=== PATIENT | female | born 1990 | race Caucasian/White ===

== ENCOUNTER 2021-04-11 13:34 | Outpatient (REF) | payer MEDICAID, SELFPAY ==
--- NOTE | ~2021-04-11 | XR_ITS ---
EXAMINATION: XR CHEST CLINICAL INFORMATION: Shortness of breath COMPARISON: None TECHNIQUE: 2 views of the chest were obtained. FINDINGS: Median sternotomy and cardiac valve replacement. Normal heart size and pulmonary vascularity. No focal consolidation. No pleural effusion or pneumothorax. No acute or suspicious osseous abnormalities. XR/XR chest 2V IMPRESSION: No acute findings.
== END 2021-04-11 13:35 | disposition home or self-care (01) ==
LOC: HO.XRAY 13:34
PROVIDERS: PCP Internal Medicine; Visit Provider Internal Medicine
DX: R06.02 Shortness of breath (principal)
CPT/HCPCS: 71046

== ENCOUNTER → 2021-05-30 14:46 | Outpatient (REF) | payer MEDICAID, SELFPAY ==
--- NOTE | 2021-05-30 14:49 | CA_ITS ---
Transthoracic Echocardiogram Patient (Last, First, Middle): Macy Durant, Gender: Female Date of : 1990 Age: 31 Procedure Date: 05/30/2021 Procedure Type: Transthoracic Echocardiogram Location: OP Height: 157.48 cm Weight: 46.27 kg BSA: 1.44 m2 Heart Rate: bpm BP: 95 / 45 mmHg Waiter/Waitress Dining Car: SHADI Referring MD: Dolores Serrano MD Symptoms: R07.89 OTHER CHEST PAIN, Z09.890 Study Quality: Fair ECG Rhythm: Sinus Conclusions: - The left ventricular systolic function is normal. The calculated ejection fraction is 65% by biplane method. - There is moderate mitral annular calcification. There is mild mitral valve regurgitation. Cannot exclude mild to moderate mitral stenosis. - There is mild tricuspid valve regurgitation. Findings Left Ventricle Normal left ventricular cavity size. There is normal left ventricular wall thickness. The left ventricular systolic function is normal. The calculated ejection fraction is 65% by biplane method. There is no evidence of regional wall motion abnormalities. Diastolic function is indeterminate on the basis of available data. (due to MAC). Right Ventricle Normal right ventricular cavity size and systolic function. Atria Both atria are normal in size. Aortic Valve There is a normal trileaflet aortic valve. There is no aortic valve stenosis. There is trace (trivial) aortic valve regurgitation. Trace to mild aortic regurgitation. Mitral Valve There is moderate mitral annular calcification. There is mild mitral valve regurgitation. Mean gradient across the mitral valve 6mmHg at 74/min; cannot exclude mild to moderate mitral stenosis. Pulmonic Valve The pulmonic valve was not well visualized. Tricuspid Valve Normal tricuspid valve structure. There is mild tricuspid valve regurgitation. The pulmonary artery systolic pressure is normal. Great Vessels The aortic annulus, sinuses of valsalva, and asc aorta are normal in size. Venous The inferior vena cava is normal in size and collapses greater than 50% with inspiration. Pericardium/Pleural There is no evidence of pericardial effusion. Prior Study Comparison No prior study available for comparison. Measurements 2D Linear Measurements IVSd: 0.71 0.6-0.9/0.6-1.0 cm LVIDd: 5.03 3.9-5.3/4.2-5.9 cm LVIDd Index: 3.49 2.4-3.2/2.2-3.1 cm/m2 LVIDs: 3.12 2.0-3.6 cm LVPWd: 0.69 0.7-1.1 cm Ao Root: 2.80 2.1-3.5 cm LA Diam: 3.10 2.7-3.8/3.0-4.0 cm LAIDs Index: 2.15 1.5-2.3 cm/m2 LV Mass: 143.23 67-162/88-224 g LV Mass Index: 99.46 43-95/49-115 g/m2 LVOT Diam: 2.00 3.0+(-)1.3 cm 2D Systolic Function EF 4C: 65.20 >55% EF 2C: 64.90 >55% EF BiP: 65.30 >55% Mitral Valve MV VTI: 0.49 MV Pk Lele: 1.68 MV Mn Lele: 1.12 MV Pk Grad: 11.00 MV Mn Grad: 6.00 MV Pk E: 1.75 MV PK A: 1.23 MV Decel Time: 387.00 E/A: 1.40 E'Lateral: 10.10 E'Medial: 7.29 E/E' Med: 24.00 E/E' Lat: 17.30 PHT: 101.00 MVA PHT: 2.18 MVA Continuity: 1.56 Decel Butler: 5.08 Aortic Valve AoV Pk Lele: 1.28 AoV Mn Lele: 0.95 AoV VTI: 0.30 AoV Pk Grad: 7.00 Aov Mn Grad: 4.00 WOLF Cont.VTI: 2.54 LVOT LVOT Pk Lele: 1.08 LVOT Mn Lele: 0.78 LVOT VTI: 0.25 LVOT Pk Grad: 5.00 LVOT Mn Grad: 3.00 LVOT Diam: 2.00 LVOT Area: 3.14 Diastolic Function MV Pk E: 1.75 MV Pk A: 1.23 E/A: 1.40 E'Medial: 7.29 E/E' Med: 24.00 E' Laterial: 10.10 E/E' Lat: 17.30 Right Ventricle TAPSE (mm): 18.20 TVS' Lele: 11.40 Tricuspid Valve TR Pk Lele: 2.29 TR Pk Grad: 21.00 RA Press: 3.00 RVSP: 24.00 Great Vessels Aorta Ao Root-2D: 2.80 2.0-3.7 cm Ao Asc: 2.30 2.1-3.4 cm Ao Arch: 2.40 Updated in Other Vendor System with Status of Final Ced Camacho MD electronically signed on 05/31/2021 12:08:47 PM with status of Final
== END ==
LOC: HO.CARD 14:46
PROVIDERS: PCP Internal Medicine; Visit Provider Internal Medicine
DX: R07.89 Other chest pain (principal)
CPT/HCPCS: 93306

== ENCOUNTER 2021-10-18 14:17 | Outpatient (REF) | payer MEDICAID, SELFPAY ==
--- NOTE | ~2021-10-18 | CT_ITS ---
EXAMINATION: CT ABDOMEN AND PELVIS WITH CONTRAST CLINICAL INFORMATION: Right lower quadrant pain for 2 weeks getting worse COMPARISON: OB ultrasound 01/20/2020 TECHNIQUE: Multidetector volumetric images were obtained from the superior aspect of the liver through the pubic symphysis following administration of 77 mL of Omnipaque 300 intravenous contrast. Sagittal and coronal reformatted images were obtained on the technologist's workstation. Oral contrast: No This CT examination was performed using dose optimization techniques as appropriate, variously including the following: *Automated exposure control *Adjustment of mA and/or kV according to patient size (this includes techniques or standardized protocols for targeted exams where dose is matched to indication/reason for exam; i.e. extremities or head) *Use of iterative reconstruction technique DLP: 355 mGy-cm FINDINGS: LUNG BASES: Patient is status post median sternotomy and a mitral valve prosthesis is present. No lung masses, infiltrates or pleural effusions are seen. LIVER, GALLBLADDER, AND BILIARY TREE: The liver is normal in size, shape, and attenuation. No focal hepatic lesion or biliary ductal dilatation is present. The gallbladder is unremarkable with no evidence of radiopaque gallstones, gallbladder wall thickening, or obvious pericholecystic inflammatory changes. PANCREAS: Unremarkable. SPLEEN: Unremarkable. ADRENAL GLANDS: Unremarkable. KIDNEYS AND URETERS: The kidneys are normal in size, shape, and attenuation. No hydronephrosis, hydroureter, or calculi seen. No perinephric stranding. BLADDER: Unremarkable. GASTROINTESTINAL TRACT: The small and large bowel are unremarkable. The appendix is unremarkable. ABDOMINAL WALL: No abdominal wall hernia is seen. There is some mild diastases of the rectus muscles. In the buttocks bilaterally, there are innumerable rounded soft tissue densities largest measuring about 1.5 cm. I assume these are most likely from subcutaneous injections. Please correlate clinically. LYMPH NODES: No retroperitoneal lymphadenopathy. VASCULAR: The aorta and visualized iliofemoral vessels appear normal. The IVC and iliac veins are unremarkable. Of note, there is gross reflux present in both ovarian veins with bilateral large pelvic varices. If this patient has chronic pelvic pain, this may be playing a cause. This is usually the case if the pain is worse with prolonged upright position the supine position. PELVIC VISCERA: An anteverted uterus is present. An abnormal adnexal masses not seen. No free intraperitoneal fluid. Pelvic varices as described above. OSSEOUS STRUCTURES: Unremarkable. CT/CT abdomen pelvis w IV con IMPRESSION: The only discernible cause for the patient's chronic pelvic pain would be pelvic varices. The patient has pelvic venous incompetence with reflux in both ovarian veins even in the supine position with associated large pelvic varices. If the patient's pain is something that worsens in the prolonged upright position and is relieved with the supine position, she would benefit from consultation with an interventional radiologist. Other incidental findings as described above. Fleischner guidelines were followed.
[2021-10-18] MEDS: iohexoL 350 MG/ML 100 ML INFUS..BTL IV (17:27)
[2021-10-18] MEDS: Barium Sulfate Oral (Vanilla) 450 ML ORAL.SUSP 900 ML PO (17:28)
== END 2021-10-18 14:18 | disposition home or self-care (01) ==
LOC: HO.CT 14:17
PROVIDERS: PCP Internal Medicine; Visit Provider Internal Medicine
DX: R10.31 Right lower quadrant pain (principal)
CPT/HCPCS: 74177; Q9967

== ENCOUNTER 2022-04-15 12:44 | Emergency (ER) | payer MEDICAID, SELFPAY ==
--- NOTE | ~2022-04-15 | US_ITS ---
EXAMINATION: US OBSTETRICAL ULTRASOUND CLINICAL INFORMATION: Pain and bleeding with early COMPARISON: None. LMP: 03/11/2022. Gestational age by maternal dates is 5 weeks 0 days. Estimated date of delivery by maternal dates is 12/16/2022. TECHNIQUE: Both transabdominal and endovaginal scanning was performed FINDINGS: A definite gestational sac is not seen. There is one tiny cystic area adjacent to the endometrium that measures 2.1 mm in size. No pole or heartbeat is seen. No yolk sac is identified. MATERNAL ADNEXA: The right maternal ovary measures 2.4 x 1.4 x 1.4 cm. The left maternal ovary measures 2.5 x 1.7 x 2.0 cm. There is no significant maternal adnexal mass. No maternal pelvic ascites. US/US OB pelvic and transvaginal IMPRESSION: If the tiny cystic area is indeed a gestational sac based upon the 2.1 mm size, this would correspond with a gestational 4 weeks 5 days which would be too early to see a pole. Recommend correlation with hCG and follow-up ultrasound as needed.
--- NOTE | 2022-04-15 14:05 | PC.NURSE ---
pt given crackers and juice x 2
[2022-04-15 14:46] VITALS: BP 119/67; PULSE 74; RESP 16; TEMP 36.3; O2SAT 99; BMI 18.3
--- NOTE | 2022-04-15 14:47 | ED.GENADULT ---
HPI - General Adult General Chief complaint: Abdominal Pain <MARIBEL Hayward - Last Filed: 04/15/22 14:55> Stated complaint: abdominal pain <MARIBEL Hayward - Last Filed: 04/15/22 14:55> Time Seen by Provider: 04/15/22 18:28 <MARIBEL Hayward - Last Filed: 04/15/22 14:55> Source: patient <MARIBEL Hayward - Last Filed: 04/15/22 14:55> Mode of arrival: ambulatory <MARIBEL Hayward - Last Filed: 04/15/22 14:55> Limitations: no limitations <MARIBEL Hayward - Last Filed: 04/15/22 14:55> History of Present Illness HPI narrative: Patient A1 about 5 weeks comes here for lower abdominal pain and vaginal spotting for last 2 days also feeling weak and dizzy also has sty on the right eyelid no fever no chills no upper respiratory symptoms patient denied any urinary symptoms patient has not passed any blood clots bleeding is very mild bright red in color <Nikolay Liao MD - Last Filed: 04/15/22 19:16> Related Data Home medications: Previous Rx's Medication Instructions Recorded cephalexin 500 mg capsule 500 mg PO QID 10 days #40 caps 04/15/22 erythromycin 5 mg/gram (0.5 %) eye 0.5 inch ophthalmic (eye) TID #3.5 04/15/22 ointment grams <MARIBEL Hayward - Last Filed: 04/15/22 14:55> Allergies/adverse reactions: Allergies Allergy/AdvReac Type Severity Reaction Status Date / Time No Known Allergies Allergy Unverified 02/04/20 19:53 [No Known Allergies*] <MARIBEL Hayward - Last Filed: 04/15/22 14:55> Review of Systems Review of Systems: Yes all other systems are reviewed and are negative <Nikolay Liao MD - Last Filed: 04/15/22 19:16> [facility] Social History Social History: Social History Advance Directives: No Advance Directives Information Provided: No <MARIBEL Hayward - Last Filed: 04/15/22 14:55> Physical Exam ED Vital Signs: Vital Signs - 24 hr 04/15/22 14:46 04/15/22 19:08 Temperature 97.3 F 97.5 F Pulse Rate 74 75 Respiratory Rate 16 18 Blood Pressure 119/67 116/63 Pulse Oximetry 99 97 Oxygen Delivery Method Room Air Room Air BMI result Body Mass Index 18.3 <MARIBEL Hayward - Last Filed: 04/15/22 14:55> Vital Signs - 24 hr 04/15/22 14:46 04/15/22 19:08 Temperature 97.3 F 97.5 F Pulse Rate 74 75 Respiratory Rate 16 18 Blood Pressure 119/67 116/63 Pulse Oximetry 99 97 Oxygen Delivery Method Room Air Room Air BMI result Body Mass Index 18.3 <Nikolay Liao MD - Last Filed: 04/15/22 19:16> Appearance: Alert. Oriented X3. No acute distress. Eyes: No pallor or icterus right external hordeolum++ ENT: Pharynx normal. Oral Mucosa moist Neck: Normal inspection. Neck supple. CVS: Normal heart rate and rhythm. Pulses normal. Respiratory: No respiratory distress. Equal air entry bilateral, no wheezing/rales/rhonchi Abdomen: Soft mild discomfort suprapubic, Bowel sounds are present, no mass palpable, no CVA tenderness Skin: Skin warm and dry. Normal skin color. Normal skin turgor. Extremities: No lower extremity edema. No calf tenderness Neuro: Oriented X 3. <Nikolay Liao MD - Last Filed: 04/15/22 19:16> Course Course Course Narrative: RME performed by Eliana George PA-C. Patient is a 32 year old female presenting to the Emergency Department with lower abdominal pain and bleeding. Patient states that she is 4 weeks . CBC, CMP, type and screen, OB Transvaginal US, and HCG ordered. Patient to be placed back in waiting room pending results and bed availability. <MARIBEL Hayward - Last Filed: 04/15/22 14:55> Medical Decision Making MDM Narrative Medical decision making narrative: Patient with 5 weeks IUP with mild vaginal bleeding with history of multiple miscarriages will follow-up with OBGYN in 2 days <Nikolay Liao MD - Last Filed: 04/15/22 19:16> Lab Data Lab results reviewed: Yes I reviewed the patient's lab results. <Nikolay Liao MD - Last Filed: 04/15/22 19:16> Result diagrams: : 04/15/22 15:04 04/15/22 15:04 <MARIBEL Hayward - Last Filed: 04/15/22 14:55> Labs: Lab Results 04/15/22 04/15/22 04/15/22 Range/Units 15:04 15:04 15:04 WBC 7.1 (4.8-10.8) X10*3/uL RBC 4.10 L (4.20-5.50) X10*6/uL Hgb 12.4 (12.0-16.0) g/dl Hct 37.4 (37.0-47.0) % MCV 91.2 (80.0-98.0) fL MCH 30.2 (27.0-33.0) pg MCHC 33.2 (31.0-35.0) g/dl RDW 14.1 (11.0-16.0) % Plt Count 190 (160-400) X10*3/uL MPV 12.0 (9.4-12.3) fL Immature Gran % (Auto) 0.4 (0.0-0.4) % Neut % (Auto) 49.4 (45-73) % Lymph % (Auto) 40.1 H (20-40) % Thomas % (Auto) 8.9 (2-11) % Eos % (Auto) 0.8 (0-4) % Baso % (Auto) 0.4 (0-2) % Lymph # (Auto) 2.9 (1.2-4.9) X10*3/uL Thomas # (Auto) 0.6 (0.1-1.2) X10*3/uL Eos # (Auto) 0.1 (0.0-0.4) X10*3/uL Baso # (Auto) 0.0 (0.0-0.2) X10*3/uL Abs Immat Gran (auto) 0.03 (0.00-0.03) X10*3/uL Absolute Neuts (auto) 3.5 (2.0-8.3) x10*3/uL Absolute Nucleated RBC 0.000 (0.0-0.012) X10*3/uL Nucleated RBC % (auto) 0.0 (0.0-0.2) /100WBC Sodium 136 (135-145) mmol/L Potassium 4.0 (3.3-5.1) mmol/L Chloride 106 (96-108) mmol/L Carbon Dioxide 21 L (22-29) mmol/L Anion Gap 13 (12-20) BUN 9 (9-16) mg/dL Creatinine 0.61 (0.5-1.4) mg/dL Estim Creat Clear Calc 95.6 Estimated GFR > 60 Random Glucose 98 (60-115) mg/dL Calcium 9.2 (8.4-10.2) mg/dL Total Bilirubin 0.2 (0.0-1.0) mg/dL AST 15 (5-31) U/L ALT 17 (0-31) U/L Alkaline Phosphatase 46 (39-117) U/L Total Protein 6.7 (6.5-8.0) g/dL Albumin 3.9 (3.5-5.0) g/dL Beta HCG, Quant 71 mIU/mL Blood Type A Positive Antibody Screen NEGATIVE <MARIBEL Hayward - Last Filed: 04/15/22 14:55> Lab Results 04/15/22 04/15/22 04/15/22 Range/Units 15:04 15:04 15:04 WBC 7.1 (4.8-10.8) X10*3/uL RBC 4.10 L (4.20-5.50) X10*6/uL Hgb 12.4 (12.0-16.0) g/dl Hct 37.4 (37.0-47.0) % MCV 91.2 (80.0-98.0) fL MCH 30.2 (27.0-33.0) pg MCHC 33.2 (31.0-35.0) g/dl RDW 14.1 (11.0-16.0) % Plt Count 190 (160-400) X10*3/uL MPV 12.0 (9.4-12.3) fL Immature Gran % (Auto) 0.4 (0.0-0.4) % Neut % (Auto) 49.4 (45-73) % Lymph % (Auto) 40.1 H (20-40) % Thomas % (Auto) 8.9 (2-11) % Eos % (Auto) 0.8 (0-4) % Baso % (Auto) 0.4 (0-2) % Lymph # (Auto) 2.9 (1.2-4.9) X10*3/uL Thomas # (Auto) 0.6 (0.1-1.2) X10*3/uL Eos # (Auto) 0.1 (0.0-0.4) X10*3/uL Baso # (Auto) 0.0 (0.0-0.2) X10*3/uL Abs Immat Gran (auto) 0.03 (0.00-0.03) X10*3/uL Absolute Neuts (auto) 3.5 (2.0-8.3) x10*3/uL Absolute Nucleated RBC 0.000 (0.0-0.012) X10*3/uL Nucleated RBC % (auto) 0.0 (0.0-0.2) /100WBC Sodium 136 (135-145) mmol/L Potassium 4.0 (3.3-5.1) mmol/L Chloride 106 (96-108) mmol/L Carbon Dioxide 21 L (22-29) mmol/L Anion Gap 13 (12-20) BUN 9 (9-16) mg/dL Creatinine 0.61 (0.5-1.4) mg/dL Estim Creat Clear Calc 95.6 Estimated GFR > 60 Random Glucose 98 (60-115) mg/dL Calcium 9.2 (8.4-10.2) mg/dL Total Bilirubin 0.2 (0.0-1.0) mg/dL AST 15 (5-31) U/L ALT 17 (0-31) U/L Alkaline Phosphatase 46 (39-117) U/L Total Protein 6.7 (6.5-8.0) g/dL Albumin 3.9 (3.5-5.0) g/dL Beta HCG, Quant 71 mIU/mL Blood Type A Positive Antibody Screen NEGATIVE <Nikolay Liao MD - Last Filed: 04/15/22 19:16> Discharge Plan Discharge Clinical Impression: Threatened in early , Meibomian sty <MARIBEL Hayward - Last Filed: 04/15/22 14:55> Patient Disposition: Home, Self-Care <MARIBEL Hayward - Last Filed: 04/15/22 14:55> Instructions: Threatened Miscarriage (ED), Stye (ED) <MARIBEL Hayward - Last Filed: 04/15/22 14:55> Additional Instructions: Care and cautions as advised Follow-up with your OBGYN 2 days to recheck about the Report to the ER if worsening of vaginal bleed Take antibiotic for infection on the eye Apply eye ointment every night Cuidados y precauciones seg?n lo recomendado Seguimiento con funes obstetra y ginecolog?a 2 d?as para volver a verificar el embarazo Informe a la beti de emergencias si empeora el sangrado vaginal Harman antibi?iwlliam para la infecci?n en el [place]. Aplicar olga?ento para los ojos todas las noches. <MARIBEL Hayward - Last Filed: 04/15/22 14:55> Prescriptions: New cephalexin 500 mg capsule 500 mg PO QID 10 Days Qty: 40 0RF erythromycin 5 mg/gram (0.5 %) ointment 0.5 inch ophthalmic (eye) TID Qty: 3.5 0RF <MARIBEL Hayward - Last Filed: 04/15/22 14:55> Print Language: Beninese <MARIBEL Hayward - Last Filed: 04/15/22 14:55>
[2022-04-15 15:10] LABS: MANUAL DIFF FLAG NO
[2022-04-15 15:13] LABS: Basophils Percent Auto 0.4 % (0-2); Eosinophils Absolute Auto 0.1 X10*3/uL (0.0-0.4); Eosinophils Percent Auto 0.8 % (0-4); Hematocrit 37.4 % (37.0-47.0); Hemoglobin 12.4 g/dl (12.0-16.0); Imm Gran Abs Auto 0.03 X10*3/uL (0.00-0.03); Imm Gran Pct Auto 0.4 % (0.0-0.4); Lymphocytes Absolute Auto 2.9 X10*3/uL (1.2-4.9); Lymphocytes Percent Auto 40.1 % (20-40); Mean Corpuscular HGB Conc 33.2 g/dl (31.0-35.0); Mean Corpuscular Hemoglobin 30.2 pg (27.0-33.0); Mean Corpuscular Volume 91.2 fL (80.0-98.0); Monocytes Absolute Auto 0.6 X10*3/uL (0.1-1.2); Monocytes Percent Auto 8.9 % (2-11); Neutrophils Absolute Auto 3.5 x10*3/uL (2.0-8.3); Neutrophils Percent Auto 49.4 % (45-73); Platelet Count 190 X10*3/uL (160-400); Red Cell Distribution Width 14.1 % (11.0-16.0); White Blood Count 7.1 X10*3/uL (4.8-10.8)
[2022-04-15 15:34] LABS: Alanine Aminotransferase 17 U/L (0-31); Albumin Level 3.9 g/dL (3.5-5.0); Alkaline Phosphatase 46 U/L (39-117); Anion Gap 13 (12-20); Aspartate Amino Transferase 15 U/L (5-31); Bilirubin Total 0.2 mg/dL (0.0-1.0); Blood Urea Nitrogen 9 mg/dL (9-16); Calcium 9.2 mg/dL (8.4-10.2); Carbon Dioxide 21 mmol/L (22-29); Chloride 106 mmol/L (96-108); Creatinine Clr Calc Pharmacy 95.6; Estimated Glomerular Filt Rate > 60; Glucose Random 98 mg/dL (60-115); HCG Quantitative 71 mIU/mL; Sodium 136 mmol/L (135-145); Total Protein 6.7 g/dL (6.5-8.0)
--- NOTE | 2022-04-15 18:22 | PC.NURSE ---
PT , N/V. BROUGHT IN FROM WAITING ROOM, EATING TWINKI
[2022-04-15 19:08] VITALS: BP 116/63; PULSE 75; RESP 18; TEMP 36.4; O2SAT 97
[2022-04-15] MEDS: cephALEXin 500 MG CAPSULE PO (19:20)
== END 2022-04-15 19:29 | disposition home or self-care (01) ==
PROVIDERS: Physician Assistant Medical; Emergency Provider Internal Medicine
DX: O20.0 Threatened abortion (principal); Z3A.01 Less than 8 weeks gestation of pregnancy; Z79.899 Other long term (current) drug therapy
CPT/HCPCS: 36415; 76801; 76817; 80053; 84702; 85025; 86850; 86900; 86901; 99283

== ENCOUNTER → 2022-06-14 11:03 | Outpatient (REF) | payer MEDICAID, SELFPAY ==
--- NOTE | 2022-06-14 11:07 | CA_ITS ---
Acquisition Time: 2022-06-14 11:18:55 Total Exercise Time: 00:08:07 Test Indications: CHEST PAIN Medications: Protocol: TERESA Max HR: 162 BPM 85% of Pred: 189 BPM Max BP: 122/076 mmHG Max Work Load: 10.1 METS Exercise stress test with exercise 8 min 7 sec fo Teresa protocol, achieing 86% MPHR, 10.1 METs, with need to stop due to moderate sob, No chest discomfort, without arrythmia, with max BP 122/76 ( done in stage 2, no BP done in stage 3), without EKG changes meeting criteria for ischemia. Echo images obtained at rest and immeiately post peak exercise. In recovery she did report a visual change to the lateral aspect of right eye. Symptom seemed to gradual resolved after several minutes. No mobility issues noted. No carotid bruit noted. She reports having this several times in the past but has never discussed with providers. Call placed to Dr Fregoso and informed of the above. Pt stable at present with resolution of symptom and may leave cardiology department. He will be arranging outpt neuro eval. Test reviewed with Dr Camacho. Referred By: Jhon Fregoso Overread By: JOSR BARAHONA
== END ==
LOC: HO.CARD 11:03
PROVIDERS: Visit Provider Internal Medicine Cardiovascular Disease
DX: R07.9 Chest pain, unspecified (principal)
CPT/HCPCS: 93017; 93350; Q9957

== ENCOUNTER 2022-12-30 12:46 | Emergency (ER) | payer MEDICAID, SELFPAY ==
--- NOTE | ~2022-12-30 | CT_ITS ---
EXAMINATION: CT ABDOMEN AND PELVIS WITHOUT CONTRAST CLINICAL INFORMATION: Right-sided flank pain. Rule out kidney stone. COMPARISON: Previous CT of the abdomen and pelvis most recent October 2021 TECHNIQUE: Multidetector volumetric imaging was performed from the superior aspect of the liver through the pubic symphysis. Sagittal and coronal reformatted images were obtained on the technologist's workstation. This CT examination was performed using dose optimization techniques as appropriate, variously including the following: *Automated exposure control *Adjustment of mA and/or kV according to patient size (this includes techniques or standardized protocols for targeted exams where dose is matched to indication/reason for exam; i.e. extremities or head) *Use of iterative reconstruction technique DLP: 377 mGy-cm FINDINGS: LUNG BASES: The visualized lung bases are clear. Prosthetic mitral valve. LIVER, GALLBLADDER, AND BILIARY TREE: The liver is normal in size, shape, and attenuation. No focal hepatic lesion or biliary ductal dilatation is present. The gallbladder is unremarkable with no evidence of radiopaque gallstones, gallbladder wall thickening, or obvious pericholecystic inflammatory changes. PANCREAS: Unremarkable. SPLEEN: Unremarkable. ADRENAL GLANDS: Unremarkable. KIDNEYS AND URETERS: The kidneys are normal in size, shape, and attenuation. No hydronephrosis, hydroureter, or calculi seen. No perinephric stranding. BLADDER: Unremarkable. GASTROINTESTINAL TRACT: The small and large bowel are unremarkable. The appendix is unremarkable. ABDOMINAL WALL: No significant hernia is appreciated. Numerous small nodules in the fat of the abdomen but probably related to previous surgery. LYMPH NODES: Normal. VASCULAR: Unremarkable. PELVIC VISCERA: Unremarkable. OSSEOUS STRUCTURES: Unremarkable. CT/CT abdomen pelvis wo IV con IMPRESSION: 1. No renal stone or hydronephrosis seen. Fleischner guidelines were followed.
[2022-12-30 13:14] VITALS: BP 107/66; PULSE 71; RESP 18; TEMP 36.7; O2SAT 99; BMI 20.3
--- NOTE | 2022-12-30 13:23 | ED.GENADULT ---
HPI - General Adult General Chief complaint: Abdominal Pain Stated complaint: Lower abd pain/Nausea Time Seen by Provider: 12/30/22 16:13 Source: patient Mode of arrival: ambulatory Limitations: no limitations History of Present Illness HPI narrative: Patient is a 32 year old assigned female at with no reported medical history presenting to the emergency department today with abdominal pain. Patient states that over the last week she has had lower abdominal pain and pain with urination. Patient denies any vaginal bleeding, vaginal discharge, dizziness, lightheadedness, vomiting, fever, chills, blurry vision, double vision, loss of vision, chest pain, difficulty breathing, shortness of breath, back pain, night sweats, increased urinary frequency, increased urinary urgency, blood in her urine or stool, syncope or a near syncopal episode, recent trauma or falls, bowel incontinence, bladder incontinence, bowel retention, bladder retention, or any other complaints at this time. Onset (ago): week(s) (1) Location: abdomen Severity: mild Severity scale (1-10): 4 Quality: aching and dull Pain Consistency: constant Relieving factors: none Exacerbating factors: none Associated symptoms: nausea/vomiting Treatments prior to arrival: none Related Data Previous Rx's Medication Instructions Recorded cephalexin 500 mg capsule 500 mg PO QID 10 days #40 caps 04/15/22 erythromycin 5 mg/gram (0.5 %) eye 0.5 inch ophthalmic (eye) TID #3.5 04/15/22 ointment grams cefdinir 300 mg capsule 300 mg PO BID 7 days #14 caps 12/30/22 Allergies Allergy/AdvReac Type Severity Reaction Status Date / Time No Known Allergies Allergy Verified 12/30/22 13:14 [No Known Allergies*] Review of Systems Constitutional: Constitutional: Reports no additional constitutional complaints, Denies chills, Denies fever(s) and Denies night sweats Eyes: Eyes: Reports no additional eye complaints, Denies blurry vision, Denies change in vision, Denies diplopia, Denies eye discharge, Denies loss of vision and Denies eye pain ENT: Denies dizziness Cardiovascular: Cardiovascular: Reports no additional cardiovascular complaints, Denies chest pain, Denies lightheadedness, Denies Loss of Consciousness and Denies dyspnea Respiratory: Respiratory: Reports no additional respiratory complaints and Denies dyspnea Gastrointestinal: Gastrointestinal: Reports no additional gastrointestinal complaints, Reports abdominal pain, Denies melena, Denies hematochezia, Denies change in bowel habits, Denies change in stool character, Reports nausea and Denies vomiting Genitourinary: Genitourinary: Denies hematuria, Denies urinary frequency, Reports dysuria, Denies urinary incontinence, Denies urinary hesitancy and Denies urinary urgency Musculoskeletal: Musculoskeletal: Reports no additional musculoskeletal complaints, Denies numbness and Denies tingling Neurologic: Denies dizziness, Denies loss of vision, Denies numbness and Denies tingling Psychiatric: Psychiatric: Reports no additional psychiatric complaints Endocrine: Endocrine: Reports no additional endocrine complaints Hematologic/Lymphatic: Hematologic/Lymphatic: Reports no additional hematologic/lymphatic complaints Allergic/Immunologic: Allergic/Immunologic: Reports no additional allergic/immunologic complaints PMFSH Past Medical History Attestation statement: The following information was validated with the patient. Source: old records reviewed and nursing notes reviewed Social History Social History Alcohol intake: never Smoked in Last 30 Days: No Use of substances other than those prescribed or required for medical reasons: No Advance Directives: No Advance Directives Information Provided: No Physical Exam ED Vital Signs: Vital Signs - 24 hr 12/30/22 13:14 12/30/22 15:41 Temperature 98.1 F 98.4 F Pulse Rate 71 100 Respiratory Rate 18 18 Blood Pressure 107/66 121/69 Pulse Oximetry 99 Oxygen Delivery Method Room Air BMI result Body Mass Index 20.3 Const General: cooperative, no acute distress, alert and awake Nutritional Appearance: well nourished Orientation/consciousness: patient oriented x3 Limitations: no limitations [facility] Head: Yes normal to inspection and Yes atraumatic Ears: hearing grossly normal bilaterally and external ears normal General nose exam: Normal external nose present, no nasal discharge noted and no epistaxis Face and sinus: Yes normal facial exam, No abrasion and No laceration Mouth: Normal oral and palatal mucosa present, no drooling and no muffled voice Eyes General: appearance normal, both eyes and all related structures Periorbital: periorbital findings normal Eyelids: Yes eyelids normal Conjunctivae: conjunctivae normal Pupils: Equal, round and reactive pupils present EOM: EOMs intact bilaterally Neck Neck: Yes normal visual inspection, Yes full ROM and Yes no lymphadenopathy Chest Chest palpation & inspection: normal inspection of the chest Resp Effort & Inspection: normal respiratory effort and able to speak in complete sentences Auscultation: clear to auscultation bilaterally Cardio Rate: regular rate Rhythm: regular rhythm GI Inspection: Yes normal to inspection Palpation (GI): Soft to palpation, not firm, nontender and no guarding Neuro General: patient oriented x3 and moves all extremities Cranial nerves: Yes Equal, round and reactive pupils present Cognition (Neuro): normal cognition Motor exam (neuro): 5/5 motor strength present throughout Sensory Exam: Normal double simultaneous stimulation for sensation Coordination: [id number] test normal Extrem General: Yes normal to inspection, Yes full ROM and Yes capillary refill normal Psych Appearance: grossly normal Mental Status: mental status grossly normal Affect: normal affect Attitude: cooperative Thought process: Normal thought process present Thought content: Normal thought content present Insight: Good insight present (Psych) Course Course Course Narrative: RME: 32 yold female presents to the ED for Right upper/lower abdominal pain/back pain. Patient had resolved dysuria. labs and UA ordered. Medications Administered Discontinued Medications Generic Name Dose Route Start Last Admin Trade Name Mauricioq PRN Reason Stop Dose Admin Sodium Chloride 1,000 mls @ 999 mls/hr 12/30/22 16:45 12/30/22 16:47 Ns IV 12/30/22 17:45 999 mls/hr .Q1H1M ABDI Administration Morphine Sulfate 4 mg 12/30/22 16:32 12/30/22 16:46 Morphine Sulfate 4 Mg/Ml Cartridge IVPUSH 12/30/22 16:33 4 mg ONCE ONE Administration Protocol Ondansetron HCl 4 mg 12/30/22 16:32 12/30/22 16:46 Ondansetron Hcl 4 Mg/2 Ml Vial IVPUSH 12/30/22 16:33 4 mg ONCE ONE Administration Medical Decision Making Medical Decision Making [facility] Narrative: Patient is a 32 year old assigned female at with no reported medical history presenting to the emergency department today with lower abdominal pain. Patient's physical exam was unremarkable. Patient's blood work showed an elevated WBC count of 12.2 however, the rest of the patient's lab results were grossly normal. This elevation of WBCs is likely secondary to stress reaction. Patient's clinical presentation is not consistent with sepsis. Patient's urine showed a possible urinary tract infection. Given the patient's presentation, will treat. Patient's abdomen/pelvis CT showed no acute process. I explained my physical exam findings as well as all test results to the patient. I answered all questions asked by the patient. I stressed the importance of the patient taking her medication as prescribed. I stressed the importance of the patient following up with her primary care provider. I stressed the importance of the patient returning to the emergency department immediately if her symptoms were to worsen or if she were to develop any dizziness, shortness of breath, difficulty breathing, chest pain, blurry vision, loss of vision, nausea, vomiting, abdominal pain, fever, chills, back pain, or any other complaints. Patient verbalized agreement and understanding with this treatment plan and discharge. Differential Diagnosis Differential Diagnoses: The differential diagnosis associated with the presentation includes UTI Abdominal pain Nausea Gastroenteritis Appendicitis Cholecystitis Admission/Observation Consideration of admission/observation: Escalation of care including admission/observation considered Patient would have been admitted to the hospital had her work up had any findings where hospital admission was appropriate and her clinical presentation warranted hospital admission. Lab Data [facility] Lab Attestation statement: I reviewed the patient's lab results. My interpretation of these results are in the MDM portion of this note. 12/30/22 13:36 12/30/22 13:36 Labs: Lab Results 12/30/22 12/30/22 12/30/22 Range/Units 13:36 13:36 13:36 WBC 12.2 H (4.8-10.8) X10*3/uL RBC 4.10 L (4.20-5.50) X10*6/uL Hgb 12.5 (12.0-16.0) g/dl Hct 37.5 (37.0-47.0) % MCV 91.5 (80.0-98.0) fL MCH 30.5 (27.0-33.0) pg MCHC 33.3 (31.0-35.0) g/dl RDW 13.0 (11.0-16.0) % Plt Count 164 (160-400) X10*3/uL MPV 11.2 (9.4-12.3) fL Immature Gran % (Auto) 0.3 (0.0-0.4) % Neut % (Auto) 63.2 (45-73) % Lymph % (Auto) 28.5 (20-40) % [place] % (Auto) 7.1 (2-11) % Eos % (Auto) 0.4 (0-4) % Baso % (Auto) 0.5 (0-2) % Lymph # (Auto) 3.5 (1.2-4.9) X10*3/uL [place] # (Auto) 0.9 (0.1-1.2) X10*3/uL Eos # (Auto) 0.1 (0.0-0.4) X10*3/uL Baso # (Auto) 0.1 (0.0-0.2) X10*3/uL Abs Immat Gran (auto) 0.04 H (0.00-0.03) X10*3/uL Absolute Neuts (auto) 7.7 (2.0-8.3) x10*3/uL Absolute Nucleated RBC 0.000 (0.0-0.012) X10*3/uL Nucleated RBC % (auto) 0.0 (0.0-0.2) /100WBC PT 13.3 (11.1-13.3) SEC INR 1.1 (0.9-1.1) APTT 35.1 (26.0-36.4) SEC Sodium 139 (135-145) mmol/L Potassium 3.9 (3.3-5.1) mmol/L Chloride 110 H (96-108) mmol/L Carbon Dioxide 23 (22-29) mmol/L Anion Gap 10 L (12-20) BUN 11 (9-16) mg/dL Creatinine 0.62 (0.5-1.4) mg/dL Estim Creat Clear Calc 104.0 Estimated GFR > 60 Random Glucose 90 (60-115) mg/dL Calcium 9.2 (8.4-10.2) mg/dL Total Bilirubin 0.4 (0.0-1.0) mg/dL AST 14 (5-31) U/L ALT 14 (0-31) U/L Alkaline Phosphatase 50 (39-117) U/L Total Protein 7.2 (6.5-8.0) g/dL Albumin 4.0 (3.5-5.0) g/dL Lipase 24 (8-78) U/L Beta HCG, Quant < 2 mIU/mL Urine Color Urine Appearance Urine pH (5.0-9.0) Ur Specific [place] (1.005-1.025) Urine Protein (Neg-Trace) mg/dL Urine Glucose (UA) (Negative) mg/dL Urine Ketones (Negative) mg/dL Urine Blood (Negative) Urine Nitrite (Negative) Ur Leukocyte Esterase (Negative) Urine RBC (0-2) /HPF Urine WBC (0-5) /HPF Ur Squamous Epith Cells (0-2) /HPF Urine Bacteria (None Seen) Hyaline Casts (0-2) /LPF Urine Test (NEGATIVE) 12/30/22 12/30/22 Range/Units 13:36 13:36 WBC (4.8-10.8) X10*3/uL RBC (4.20-5.50) X10*6/uL Hgb (12.0-16.0) g/dl Hct (37.0-47.0) % MCV (80.0-98.0) fL MCH (27.0-33.0) pg MCHC (31.0-35.0) g/dl RDW (11.0-16.0) % Plt Count (160-400) X10*3/uL MPV (9.4-12.3) fL Immature Gran % (Auto) (0.0-0.4) % Neut % (Auto) (45-73) % Lymph % (Auto) (20-40) % [place] % (Auto) (2-11) % Eos % (Auto) (0-4) % Baso % (Auto) (0-2) % Lymph # (Auto) (1.2-4.9) X10*3/uL [place] # (Auto) (0.1-1.2) X10*3/uL Eos # (Auto) (0.0-0.4) X10*3/uL Baso # (Auto) (0.0-0.2) X10*3/uL Abs Immat Gran (auto) (0.00-0.03) X10*3/uL Absolute Neuts (auto) (2.0-8.3) x10*3/uL Absolute Nucleated RBC (0.0-0.012) X10*3/uL Nucleated RBC % (auto) (0.0-0.2) /100WBC PT (11.1-13.3) SEC INR (0.9-1.1) APTT (26.0-36.4) SEC Sodium (135-145) mmol/L Potassium (3.3-5.1) mmol/L Chloride (96-108) mmol/L Carbon Dioxide (22-29) mmol/L Anion Gap (12-20) BUN (9-16) mg/dL Creatinine (0.5-1.4) mg/dL Estim Creat Clear Calc Estimated GFR Random Glucose (60-115) mg/dL Calcium (8.4-10.2) mg/dL Total Bilirubin (0.0-1.0) mg/dL AST (5-31) U/L ALT (0-31) U/L Alkaline Phosphatase (39-117) U/L Total Protein (6.5-8.0) g/dL Albumin (3.5-5.0) g/dL Lipase (8-78) U/L Beta HCG, Quant mIU/mL Urine Color Yellow Urine Appearance Clear Urine pH 7.0 (5.0-9.0) Ur Specific [place] 1.020 (1.005-1.025) Urine Protein Trace (Neg-Trace) mg/dL Urine Glucose (UA) Negative (Negative) mg/dL Urine Ketones Negative (Negative) mg/dL Urine Blood Large (3+) H (Negative) Urine Nitrite Negative (Negative) Ur Leukocyte Esterase Moderate (2+) H (Negative) Urine RBC >20 H (0-2) /HPF Urine WBC >50 H (0-5) /HPF Ur Squamous Epith Cells 6-10 (0-2) /HPF Urine Bacteria None Seen (None Seen) Hyaline Casts 0-2 (0-2) /LPF Urine Test NEGATIVE (NEGATIVE) Independent Interpretation I performed an independent interpretation of an: CT Scan Interpretation: My interpretation is in agreement with the radiologist's impression of this imaging study. EXAMINATION: CT ABDOMEN AND PELVIS WITHOUT CONTRAST? CLINICAL INFORMATION: Right-sided flank pain. Rule out kidney stone.? COMPARISON: Previous CT of the abdomen and pelvis most recent October 2021 TECHNIQUE: Multidetector volumetric imaging was performed from the superior aspect of the liver through the pubic symphysis. Sagittal and coronal reformatted images were obtained on the technologist's workstation.? This CT examination was performed using dose optimization techniques as appropriate, variously including the following: *Automated exposure control *Adjustment of mA and/or kV according to patient size (this includes techniques or standardized protocols for targeted exams where dose is matched to indication/reason for exam; i.e. extremities or head) *Use of iterative reconstruction technique DLP: 377 mGy-cm FINDINGS: LUNG BASES: The visualized lung bases are clear. Prosthetic mitral valve. LIVER, GALLBLADDER, AND BILIARY TREE: The liver is normal in size, shape, and attenuation. No focal hepatic lesion or biliary ductal dilatation is present. The gallbladder is unremarkable with no evidence of radiopaque gallstones, gallbladder wall thickening, or obvious pericholecystic inflammatory changes.? PANCREAS: Unremarkable.? SPLEEN: Unremarkable.? ADRENAL GLANDS: Unremarkable.? KIDNEYS AND URETERS: The kidneys are normal in size, shape, and attenuation. No hydronephrosis, hydroureter, or calculi seen. No perinephric stranding. ? BLADDER: Unremarkable.? GASTROINTESTINAL TRACT: The small and large bowel are unremarkable. The appendix is unremarkable.? ABDOMINAL WALL: No significant hernia is appreciated. Numerous small nodules in the fat of the abdomen but probably related to previous surgery.? LYMPH NODES: Normal. VASCULAR: Unremarkable. PELVIC VISCERA: Unremarkable.? OSSEOUS STRUCTURES: Unremarkable.? CT/CT abdomen pelvis wo IV con IMPRESSION: 1.? No renal stone or hydronephrosis seen. ? Fleischner guidelines were followed. Dictated By: Sandrine Berry MD Signed By: Electronically signed by Sandrine Berry MD 12/30/22 0383 Radiology Impression Discussion of test interpretation with radiology: I have reviewed the radiologist's reading. Prescription Management I considered prescription management with: Antibiotic (patient prescribed an antibiotic for her possible UTI.) Discharge Plan Discharge Clinical Impression: Abdominal pain, Urinary tract infection Patient Disposition: Home, Self-Care Instructions: Urinary Tract Infection in Women (DC), Abdominal Pain (ED) Additional Instructions: Follow up with your primary care provider. Return to the emergency department immediately if your symptoms worsen or if you develop any dizziness, shortness of breath, difficulty breathing, chest pain, blurry vision, loss of vision, nausea, vomiting, abdominal pain, fever, chills, back pain, or any other complaints. Bryan un seguimiento con funes proveedor de atenci?n primaria. Regrese al departamento de emergencias de inmediato si cathleen s?ntomas empeoran o si presenta mareos, falta de aire, dificultad para respirar, dolor de pecho, visi?n borrosa, p?rdida de la visi?n, n?useas, v?mitos, dolor abdominal, fiebre, escalofr?os, dolor de espalda o cualquier otras quejas. Prescriptions: New cefdinir 300 mg capsule 300 mg PO BID 7 Days Qty: 14 0RF No Action cephalexin 500 mg capsule 500 mg PO QID 10 Days Qty: 40 0RF erythromycin 5 mg/gram (0.5 %) ointment 0.5 inch ophthalmic (eye) TID Qty: 3.5 0RF Referrals: [facility] [place] [facility] [Provider Group] (Call to establish and follow up with a primary care provider. If you already have a primary care provider, please follow up with them. Llame para establecer y hacer un seguimiento con un proveedor de atenci?n primaria. Si ya tiene un proveedor de atenci?n primaria, bryan un seguimiento con ?l.) [facility] [place] [facility] [Provider Group] (Call to establish and follow up with a primary care provider. If you already have a primary care provider, please follow up with them. Llame para establecer y hacer un seguimiento con un proveedor de atenci?n primaria. Si ya tiene un proveedor de atenci?n primaria, bryan un seguimiento con ?l.) [facility] [Provider Group] (Call to establish and follow up with a primary care provider. If you already have a primary care provider, please follow up with them. Llame para establecer y hacer un seguimiento con un proveedor de atenci?n primaria. Si ya tiene un proveedor de atenci?n primaria, bryan un seguimiento con ?l.) Stand Alone Forms: Work/School Release Interventions: ED Discharge Assessment Last Done: 12/30/22 17:36 Discharge Date/Time: 12/30/22 17:41 Print Language: Burmese
[2022-12-30 13:45] LABS: MANUAL DIFF FLAG NO
[2022-12-30 13:47] LABS: Basophils Absolute Auto 0.1 X10*3/uL (0.0-0.2); Basophils Percent Auto 0.5 % (0-2); Eosinophils Absolute Auto 0.1 X10*3/uL (0.0-0.4); Eosinophils Percent Auto 0.4 % (0-4); Hematocrit 37.5 % (37.0-47.0); Hemoglobin 12.5 g/dl (12.0-16.0); Imm Gran Abs Auto 0.04 X10*3/uL (0.00-0.03); Imm Gran Pct Auto 0.3 % (0.0-0.4); Lymphocytes Absolute Auto 3.5 X10*3/uL (1.2-4.9); Lymphocytes Percent Auto 28.5 % (20-40); Mean Corpuscular HGB Conc 33.3 g/dl (31.0-35.0); Mean Corpuscular Hemoglobin 30.5 pg (27.0-33.0); Mean Corpuscular Volume 91.5 fL (80.0-98.0); Mean Platelet Volume 11.2 fL (9.4-12.3); Monocytes Absolute Auto 0.9 X10*3/uL (0.1-1.2); Monocytes Percent Auto 7.1 % (2-11); Neutrophils Absolute Auto 7.7 x10*3/uL (2.0-8.3); Neutrophils Percent Auto 63.2 % (45-73); Platelet Count 164 X10*3/uL (160-400); White Blood Count 12.2 X10*3/uL (4.8-10.8)
[2022-12-30 13:48] LABS: Appearance Urine Clear; Color Urine Yellow; Glucose Urine UA Negative (Negative); Leukocyte Esterase Urine Moderate (2+) (Negative); Nitrite Urine Negative (Negative); UMIC TRIGGER UACC YES; Urine Blood Large (3+) (Negative); Urine Ketones Negative (Negative); Urine Protein Trace mg/dL (Neg-Trace)
[2022-12-30 13:56] LABS: Bacteria Urine None Seen (None Seen); Hyaline Casts Urine 0-2 /LPF (0-2); RBC Urine >20 /HPF (0-2); UACC Culture Trigger YES; WBC Urine >50 /HPF (0-5)
[2022-12-30 13:59] LABS: INTERNATIONAL NORM RATIO 1.1 (0.9-1.1); Prothrombin Time 13.3 SEC (11.1-13.3)
[2022-12-30 14:01] LABS: Partial Thromboplastin Time 35.1 SEC (26.0-36.4)
[2022-12-30 14:24] LABS: Alanine Aminotransferase 14 U/L (0-31); Alkaline Phosphatase 50 U/L (39-117); Anion Gap 10 (12-20); Aspartate Amino Transferase 14 U/L (5-31); Bilirubin Total 0.4 mg/dL (0.0-1.0); Blood Urea Nitrogen 11 mg/dL (9-16); Calcium 9.2 mg/dL (8.4-10.2); Carbon Dioxide 23 mmol/L (22-29); Chloride 110 mmol/L (96-108); Estimated Glomerular Filt Rate > 60; Glucose Random 90 mg/dL (60-115); Lipase 24 U/L (8-78); Potassium 3.9 mmol/L (3.3-5.1); Sodium 139 mmol/L (135-145); Total Protein 7.2 g/dL (6.5-8.0)
[2022-12-30 14:32] LABS: HCG Quantitative < 2 mIU/mL
[2022-12-30 14:45] LABS: UPreg QC Valid YES; Urine Pregnancy NEGATIVE (NEGATIVE)
[2022-12-30 15:41] VITALS: BP 121/69; PULSE 100; RESP 18; TEMP 36.9
[2022-12-30] MEDS: ondansetron HCL 4 MG/2 ML VIAL IVPUSH (16:46)
[2022-12-30] MEDS: Morphine Sulfate 4 MG/ML CARTRIDGE IVPUSH (16:46)
[2022-12-30] MEDS: 0.9 % Sodium Chloride 1,000 ML 999 ML IV (16:47)
--- NOTE | 2022-12-30 16:54 | PC.NURSE ---
Medicated per order, patient reporting relief in pain
--- NOTE | 2022-12-30 17:40 | PC.NURSE ---
discharge plan reviewed with patient who verbalized understanding
== END 2022-12-30 17:41 | disposition home or self-care (01) ==
PROVIDERS: Physician Assistant; Emergency Provider Internal Medicine
DX: N39.0 Urinary tract infection, site not specified (principal); R10.2 Pelvic and perineal pain; Z79.899 Other long term (current) drug therapy
CPT/HCPCS: 36415; 74176; 80053; 81001; 81025; 83690; 84702; 85025; 85610; 85730; 87086; 87088; 87186; 96361; 96374; 96375; 99284; J2270; J2405

== ENCOUNTER 2023-01-08 18:23 | Outpatient (REF) | payer MEDICAID, SELFPAY ==
[2023-01-10 19:49] LABS: C. trachomatis RNA TMA NOT DETECTED (NOT DETECTED); N. gonorrhoeae RNA TMA NOT DETECTED (NOT DETECTED)
== END 2023-01-08 18:24 | disposition home or self-care (01) ==
LOC: HO.CHCLNP 18:23
PROVIDERS: Visit Provider Internal Medicine
DX: N89.8 Other specified noninflammatory disorders of vagina (principal)
CPT/HCPCS: 0353U; 36415; 87491; 87591

== ENCOUNTER 2023-04-11 10:43 | Emergency (ER) | payer MEDICAID, SELFPAY ==
--- NOTE | ~2023-04-11 | XR_ITS ---
EXAMINATION: XR CHEST CLINICAL INFORMATION: Chest pain COMPARISON: Chest x-ray 04/11/2021 TECHNIQUE: 2 views of the chest were obtained. FINDINGS: The lungs are well-expanded and clear. The heart size and pulmonary vascularity is normal. No gross bony abnormality seen. There is mitral valve prosthesis with median sternotomy sutures. No gross bony abnormality seen. XR/XR chest 2V IMPRESSION: Unremarkable chest exam.
--- NOTE | ~2023-04-11 | CT_ITS ---
EXAMINATION: CT ANGIOGRAM OF THE HEAD CT ANGIOGRAM OF THE NECK CLINICAL INFORMATION: Left-sided numbness and tingling. COMPARISON: There are no prior studies available for comparison. TECHNIQUE: A noncontrast axial CT scan of the head was obtained. Test bolus series followed by intravenous administration 70 mL of Omnipaque 350. Helical imaging was performed in the axial plane from the mediastinum to the skull vertex. The degree of stenosis is based off NASCET criteria. The data was processed at the research technologist workstation for generation of MIP images. Three-dimensional volume rendered reformatted images were also generated at an offline 3-D workstation. This CT examination was performed using dose optimization techniques as appropriate, variously including the following: *Automated exposure control *Adjustment of mA and/or kV according to patient size (this includes techniques or standardized protocols for targeted exams where dose is matched to indication/reason for exam; i.e. extremities or head) *Use of iterative reconstruction technique DLP: 2045 mGy-cm. FINDINGS: CT Head: There is no evidence of acute intracranial hemorrhage or territorial infarction. No abnormal mass-effect or midline shift is seen. Bunn to white matter differentiation is well preserved. No extra-axial fluid collections are identified. There is no abnormal enhancement. The ventricles are normal in size. There is no abnormal attenuation within the brain parenchyma. There are no acute soft tissue abnormalities. There is irregularity of the bilateral nasal bones, without corresponding soft tissue swelling, consistent with sequelae of prior trauma. The frontal sinuses are hypoplastic and there is a persistent metopic suture. The mastoid air cells are well-aerated. There is trace mucoperiosteal thickening in the bilateral maxillary sinuses. The nasal septum is deviated to the right and there is a right-sided bony nasal septal spur. CTA Neck: Some images are degraded by patient motion and beam hardening artifact at the cervicothoracic region. There is a classic configuration of the arch of the aorta. The great vessels of the neck are widely patent. The subclavian arteries appear normal bilaterally. The common carotid arteries have normal caliber. The carotid bifurcations bilaterally appear normal. The internal carotid arteries in the neck bilaterally have uniform and normal caliber. The origins of both vertebral arteries are patent. The right vertebral artery has uniformly thinner caliber compared to the left, likely developmental. The cervical vertebral arteries are patent bilaterally. Nonvascular: The visualized upper lung green are well-aerated. The thyroid gland appears normal. There is no cervical lymphadenopathy. Nonspecific reversal of the cervical lordosis is likely positional. CTA Head: The intracranial internal carotid arteries and their bifurcations appear normal. The middle and anterior cerebral arteries bilaterally demonstrate normal caliber with no evidence of focal stenosis, aneurysm or vascular malformation. There is normal arborization of the middle cerebral artery branches. The anterior communicating artery is normal. In the posterior circulation, the left vertebral artery is dominant. Both vertebral arteries are patent. The right vertebral artery ends primarily in the PICA. The basilar artery appears normal. The posterior cerebral arteries have normal caliber. The venous sinuses opacify normally. CT/CT angio head neck IMPRESSION: CT Head and Neck: 1. There are no acute bleeds or infarcts. There are no masses or areas of abnormal enhancement. 2. There is irregularity of the bilateral nasal bones, consistent with sequelae of prior trauma. Correlate with clinical history. 3. There is no cervical lymphadenopathy. CTA Head and Neck: 1. There are no flow-limiting stenoses in the cervical vasculature. The right vertebral artery is diffusely thinner compared to the left, but is patent. 2. Intracranially there are no focal stenoses, aneurysms or vascular malformations.
[2023-04-11 10:44] VITALS: BP 118/83; PULSE 102; RESP 18; TEMP 37; O2SAT 98; BMI 19.8
--- NOTE | 2023-04-11 10:48 | ECG_ITS ---
Test Reason : CHEST PAIN Blood Pressure : / mmHG Vent. Rate : 088 BPM Atrial Rate : 088 BPM P-R Int : 142 ms QRS Dur : 076 ms QT Int : 366 ms P-R-T Axes : 042 062 072 degrees QTc Int : 442 ms Normal sinus rhythm Possible Left atrial enlargement Nonspecific T wave abnormality Abnormal ECG No previous ECGs available Referred By: Generic ED Physician Electronically Signed By:NAIF VELASCO MD
--- NOTE | 2023-04-11 10:55 | ED_ITS ---
HPI - Chest Pain General Chief Complaint: Chest Pain Stated Complaint: shoulder pain, dizzy, eye problem ? Time Seen by Provider: 04/11/23 10:55 Source: patient and reimbursement counselor Mode of arrival: ambulatory Limitations: language barrier History of Present Illness HPI narrative: Patient is a 33 year old assigned female at with a history of a cardiac valve replacement presenting to the emergency department today with left sided shoulder, neck, face, and chest pain. Patient states that this morning she woke up with left shoulder pain that radiates into the left side of her neck, left side of her face, and down into the left side of her chest. Patient denies any dizziness, lightheadedness, abdominal pain, nausea, vomiting, fever, chills, blurry vision, double vision, loss of vision, difficulty breathing, shortness of breath, back pain, night sweats, pain with urination, increased urinary frequency, increased urinary urgency, blood in her urine or stool, syncope or a near syncopal episode, recent trauma or falls, bowel incontinence, bladder incontinence, bowel retention, bladder retention, or any other complaints at this time. Severity: mild Relieving factors: nothing Exacerbating factors: nothing Related Data Previous Rx's Medication Instructions Recorded cephalexin 500 mg capsule 500 mg PO QID 10 days #40 caps 04/15/22 erythromycin 5 mg/gram (0.5 %) eye 0.5 inch ophthalmic (eye) TID #3.5 04/15/22 ointment grams cefdinir 300 mg capsule 300 mg PO BID 7 days #14 caps 12/30/22 nitrofurantoin 100 mg PO BID 5 days #10 caps 01/03/23 monohydrate/macrocrystals 100 mg capsule (Macrobid) cyclobenzaprine 5 mg tablet 5 mg PO TID PRN muscle spasm 7 04/11/23 days #21 tabs Allergies Allergy/AdvReac Type Severity Reaction Status Date / Time No Known Allergies Allergy Verified 04/11/23 10:48 [No Known Allergies*] Review of Systems 2 Constitutional: Constitutional: Reports no additional constitutional complaints, Denies chills, Denies fever(s), Reports headache(s) (left sided) and Denies night sweats Eyes: Eyes: Reports no additional eye complaints, Denies blurry vision, Denies change in vision, Denies diplopia, Denies eye discharge, Denies loss of vision and Denies eye pain ENT: Denies dizziness, Reports headache(s) (left sided) and Reports neck pain (left sided) Cardiovascular: Cardiovascular: Reports no additional cardiovascular complaints, Reports chest pain (left sided), Denies lightheadedness, Denies Loss of Consciousness and Denies dyspnea Respiratory: Respiratory: Reports no additional respiratory complaints and Denies dyspnea Gastrointestinal: Gastrointestinal: Reports no additional gastrointestinal complaints, Denies abdominal pain, Denies melena, Denies hematochezia, Denies change in bowel habits and Denies change in stool character Genitourinary: Genitourinary: Denies hematuria, Denies urinary frequency, Denies dysuria, Denies urinary incontinence, Denies urinary hesitancy and Denies urinary urgency Musculoskeletal: Musculoskeletal: Reports no additional musculoskeletal complaints, Reports neck pain (left sided), Denies numbness and Denies tingling Comments: left sided shoulder pain Neurologic: Denies dizziness, Reports headache(s) (left sided), Denies loss of vision, Denies numbness and Denies tingling Psychiatric: Psychiatric: Reports no additional psychiatric complaints Endocrine: Endocrine: Reports no additional endocrine complaints Hematologic/Lymphatic: Hematologic/Lymphatic: Reports no additional hematologic/lymphatic complaints Allergic/Immunologic: Allergic/Immunologic: Reports no additional allergic/immunologic complaints PMFSH Past Medical History Attestation statement: The following information was validated with the patient. Source: old records reviewed and nursing notes reviewed Social History Alcohol intake: never Smoked in Last 30 Days: No Use of substances other than those prescribed or required for medical reasons: No Advance Directives: No Advance Directives Information Provided: No Physical Exam 2 Vital Signs: Vital Signs: Last Vital Signs Temp 97.9 F 04/11/23 11:03 Pulse 81 04/11/23 11:03 Resp 14 04/11/23 11:03 BP 115/84 04/11/23 11:03 Pulse Ox 100 04/11/23 11:03 O2 Del Method Room Air 04/11/23 11:03 BMI result Body Mass Index 19.8 Const: General: cooperative, no acute distress, alert and awake Nutritional Appearance: well nourished Orientation/consciousness: patient oriented x3 Limitations: no limitations HEENT: Head: Yes normal to inspection and Yes atraumatic Ears: hearing grossly normal bilaterally and external ears normal General nose exam: Normal external nose present, no nasal discharge noted and no epistaxis Face and sinus: Yes normal facial exam, No abrasion and No laceration Mouth: Normal oral and palatal mucosa present, no drooling and no muffled voice Eyes: General: appearance normal, both eyes and all related structures P eriorbital: periorbital findings normal Eyelids: Yes eyelids normal C onjunctivae: conjunctivae normal Pupils: Equal, round and reactive pupils present EOM: EOMs intact bilaterally Neck: Neck: Yes normal visual inspection, Yes full ROM and Yes no lymphadenopathy Chest: Chest palpation & inspection: normal inspection of the chest Resp: Effort & Inspection: normal respiratory effort and able to speak in complete sentences Auscultation: clear to auscultation bilaterally Cardio: Rate: regular rate Rhythm: regular rhythm GI: Inspection: Yes normal to inspection Neuro: General: patient oriented x3 and moves all extremities Cranial nerves: Yes Equal, round and reactive pupils present Cognition (Neuro): n ormal cognition Motor exam (neuro): 5/5 motor strength present throughout Sensory Exam: Normal double simultaneous stimulation for sensation C oordination: [id number] test normal Extrem: General: Yes normal to inspection, Yes full ROM and Yes capillary refill normal Psych: Appearance: grossly normal Mental Status: mental status grossly normal Affect: normal affect Attitude: cooperative Thought process: N ormal thought process present Thought content: Normal thought content present Insight: Good insight present (Psych) Medications Administered Discontinued Medications Generic Name Dose Route Start Last Admin Trade Name Freq PRN Reason Stop Dose Admin Iohexol 70 ml 04/11/23 12:50 04/11/23 12:50 Iohexol 350 Mg/Ml 100 Ml Infus..Btl IV 04/11/23 12:51 70 ml ONCE ONE Administration Medical Decision Making Medical Decision Making MDM Narrative: Patient is a 33 year old assigned female at with a history of a cardiac valve replacement presenting to the emergency department today with left sided pain. Patient's physical exam was unremarkable. Patient's blood work was unremarkable. Patient's EKG was unremarkable. Patient's chest x-ray, head CT angio, and c-spine CT angio showed no acute process. I explained my physical exam findings as well as all test results to the patient. I answered all questions asked by the patient. Patient's clinical presentation is most consistent with cervical radiculopathy. I stressed the importance of the patient taking her medication as prescribed. I stressed the importance of the patient following up with her primary care provider. I stressed the importance of the patient returning to the emergency department immediately if her symptoms were to worsen or if she were to develop any dizziness, shortness of breath, difficulty breathing, chest pain, blurry vision, loss of vision, nausea, vomiting, abdominal pain, fever, chills, back pain, or any other complaints. Patient verbalized agreement and understanding with this treatment plan and discharge. Differential Diagnosis Differential Diagnoses: The differential diagnosis associated with the presentation includes Cervical radiculopathy STEMI NSTEMI Neck pain Shoulder pain Admission/Observation Consideration of admission/observation: Escalation of care including admission/observation considered Patient would have been admitted to the hospital had her work up had any findings where hospital admission was appropriate and her clinical presentation warranted hospital admission. Lab Data MDM Lab Attestation statement: I reviewed the patient's lab results. My interpretation of these studies and their corresponding values is that they are grossly normal. 04/11/23 11:13 04/11/23 11:13 Labs: Lab Results 04/11/23 04/11/23 Range/Units 11:12 11:13 WBC 6.7 (4.8-10.8) X10*3/uL RBC 4.61 (4.20-5.50) X10*6/uL Hgb 13.8 (12.0-16.0) g/dl Hct 41.1 (37.0-47.0) % MCV 89.2 (80.0-98.0) fL MCH 29.9 (27.0-33.0) pg MCHC 33.6 (31.0-35.0) g/dl RDW 12.9 (11.0-16.0) % Plt Count 185 (160-400) X10*3/uL MPV 11.4 (9.4-12.3) fL Immature Gran % (Auto) 0.3 (0.0-0.4) % Neut % (Auto) 56.5 (45-73) % Lymph % (Auto) 36.4 (20-40) % [place] % (Auto) 5.6 (2-11) % Eos % (Auto) 0.6 (0-4) % Baso % (Auto) 0.6 (0-2) % Lymph # (Auto) 2.4 (1.2-4.9) X10*3/uL [place] # (Auto) 0.4 (0.1-1.2) X10*3/uL Eos # (Auto) 0.0 (0.0-0.4) X10*3/uL Baso # (Auto) 0.0 (0.0-0.2) X10*3/uL Abs Immat Gran (auto) 0.02 (0.00-0.03) X10*3/uL Absolute Neuts (auto) 3.8 (2.0-8.3) x10*3/uL Absolute Nucleated RBC 0.000 (0.0-0.012) X10*3/uL Nucleated RBC % (auto) 0.0 (0.0-0.2) /100WBC Smear Tech's Comments VERIFIED Sodium 140 (135-145) mmol/L Potassium 3.7 (3.3-5.1) mmol/L Chloride 108 (96-108) mmol/L Carbon Dioxide 24 (22-29) mmol/L Anion Gap 12 (12-20) BUN 10 (9-16) mg/dL Creatinine 0.71 (0.5-1.4) mg/dL Estim Creat Clear Calc 88.3 Estimated GFR > 60 Random Glucose 113 (60-115) mg/dL Calcium 9.5 (8.4-10.2) mg/dL Troponin I High Sens < 2.7 (<3.5-17.0) ng/L B-Natriuretic Peptide 11 (<100) pg/mL Lipase 17 (8-78) U/L Beta HCG, Quant < 2 mIU/mL Influenza Type A (PCR) NEGATIVE (Negative) Influenza Type B (PCR) NEGATIVE (Negative) RSV RNA Qual (PCR) NEGATIVE (Negative) SARS-CoV-2 RNA (RT-PCR) NEGATIVE (Negative) Independent Interpretation I performed an independent interpretation of an: EKG, Plain X-Ray and CT Scan Interpretation: My interpretation is in agreement with the radiologist's impression of these imaging studies. - EXAMINATION: CT ANGIOGRAM OF THE HEAD CT ANGIOGRAM OF THE NECK CLINICAL INFORMATION: Left-sided numbness and tingling. COMPARISON: There are no prior studies available for comparison. TECHNIQUE: A noncontrast axial CT scan of the head was obtained. Test bolus series followed by intravenous administration 70 mL of Omnipaque 350. Helical imaging was performed in the axial plane from the mediastinum to the skull vertex. The degree of stenosis is based off NASCET criteria. The data was processed at the medical technologist microbiology workstation for generation of MIP images. Three-dimensional volume rendered reformatted images were also generated at an offline 3-D workstation. This CT examination was performed using dose optimization techniques as appropriate, variously including the following: *Automated exposure control *Adjustment of mA and/or kV according to patient size (this includes techniques or standardized protocols for targeted exams where dose is matched to indication/reason for exam; i.e. extremities or head) *Use of iterative reconstruction technique DLP: 2045 mGy-cm. FINDINGS: CT Head: There is no evidence of acute intracranial hemorrhage or territorial infarction. No abnormal mass-effect or midline shift is seen. Bunn to white matter differentiation is well preserved. No extra-axial fluid collections are identified. There is no abnormal enhancement. The ventricles are normal in size. There is no abnormal attenuation within the brain parenchyma. There are no acute soft tissue abnormalities. There is irregularity of the bilateral nasal bones, without corresponding soft tissue swelling, consistent with sequelae of prior trauma. The frontal sinuses are hypoplastic and there is a persistent metopic suture. The mastoid air cells are well-aerated. There is trace mucoperiosteal thickening in the bilateral maxillary sinuses. The nasal septum is deviated to the right and there is a right-sided bony nasal septal spur. CTA Neck: Some images are degraded by patient motion and beam hardening artifact at the cervicothoracic region. There is a classic configuration of the arch of the aorta. The great vessels of the neck are widely patent. The subclavian arteries appear normal bilaterally. The common carotid arteries have normal caliber. The carotid bifurcations bilaterally appear normal. The internal carotid arteries in the neck bilaterally have uniform and normal caliber. The origins of both vertebral arteries are patent. The right vertebral artery has uniformly thinner caliber compared to the left, likely developmental. The cervical vertebral arteries are patent bilaterally. Nonvascular: The visualized upper lung green are well-aerated. The thyroid gland appears normal. There is no cervical lymphadenopathy. Nonspecific reversal of the cervical lordosis is likely positional. CTA Head: The intracranial internal carotid arteries and their bifurcations appear normal. The middle and anterior cerebral arteries bilaterally demonstrate normal caliber with no evidence of focal stenosis, aneurysm or vascular malformation. There is normal arborization of the middle cerebral artery branches. The anterior communicating artery is normal. In the posterior circulation, the left vertebral artery is dominant. Both vertebral arteries are patent. The right vertebral artery ends primarily in the PICA. The basilar artery appears normal. The posterior cerebral arteries have normal caliber. The venous sinuses opacify normally. CT/CT angio head neck IMPRESSION: CT Head and Neck: 1. There are no acute bleeds or infarcts. There are no masses or areas of abnormal enhancement. 2. There is irregularity of the bilateral nasal bones, consistent with sequelae of prior trauma. Correlate with clinical history. 3. There is no cervical lymphadenopathy. CTA Head and Neck: 1. There are no flow-limiting stenoses in the cervical vasculature. The right vertebral artery is diffusely thinner compared to the left, but is patent. 2. Intracranially there are no focal stenoses, aneurysms or vascular malformations. Dictated By: BRIONNA EVANS MD Signed By: Electronically signed by BRIONNA EVANS MD 04/11/23 1321 - EXAMINATION: XR CHEST CLINICAL INFORMATION: Chest pain COMPARISON: Chest x-ray 04/11/2021 TECHNIQUE: 2 views of the chest were obtained. FINDINGS: The lungs are well-expanded and clear. The heart size and pulmonary vascularity is normal. No gross bony abnormality seen. There is mitral valve prosthesis with median sternotomy sutures. No gross bony abnormality seen. XR/XR chest 2V IMPRESSION: Unremarkable chest exam. Dictated By: Reddy Rodriguez MD Signed By: Electronically signed by Reddy Rodriguez MD 04/11/23 1216 Radiology Impression Discussion of test interpretation with radiology: I have reviewed the radiologist's reading. Prescription Management I considered prescription management with: Pain Medication (patient prescribed a muscle relaxer) Discharge Plan Discharge Clinical Impression: Cervical radiculopathy Patient Disposition: Home, Self-Care Instructions: Cervical Radiculopathy (ED) Additional Instructions: Follow up with your primary care provider. Return to the emergency department immediately if your symptoms worsen or if you develop any dizziness, shortness of breath, difficulty breathing, chest pain, blurry vision, loss of vision, nausea, vomiting, abdominal pain, fever, chills, back pain, or any other complaints. Pearl un seguimiento con funes proveedor de atenci?n primaria. Regrese al departamento de emergencias inmediatamente si cathleen s?ntomas empeoran o si presenta mareos, dificultad para respirar, dificultad para respirar, dolor en el pecho, visi?n borrosa, p?rdida de la visi?n, n?useas, v?mitos, dolor abdominal, fiebre, escalofr?os, dolor de espalda o cualquier otras quejas. Prescriptions: New cyclobenzaprine 5 mg tablet 5 mg PO TID PRN (Reason: muscle spasm) 7 Days Qty: 21 0RF No Action cephalexin 500 mg capsule 500 mg PO QID 10 Days Qty: 40 0RF erythromycin 5 mg/gram (0.5 %) ointment 0.5 inch ophthalmic (eye) TID Qty: 3.5 0RF cefdinir 300 mg capsule 300 mg PO BID 7 Days Qty: 14 0RF nitrofurantoin monohyd/m-cryst [Macrobid] 100 mg capsule 100 mg PO BID 5 Days Qty: 10 0RF Rx Instructions: must administer with a meal/food Referrals: Dolores Serrano MD [Primary Care Provider] - Print Language: [place]an
--- NOTE | 2023-04-11 10:58 | PC.NURSE ---
pt brought back to room- ecg is being taken at bedside. placed on monitor.
[2023-04-11 11:03] VITALS: BP 115/84; PULSE 81; PULSE 90; RESP 14; TEMP 36.6; O2SAT 100
[2023-04-11 11:30] LABS: Basophils Percent Auto 0.6 % (0-2); PLT CLUMP 1; Red Cell Distribution Width 12.9 % (11.0-16.0); SCAN SMEAR FLAG 1
[2023-04-11 11:32] LABS: Eosinophils Percent Auto 0.6 % (0-4); Hematocrit 41.1 % (37.0-47.0); Hemoglobin 13.8 g/dl (12.0-16.0); Imm Gran Abs Auto 0.02 X10*3/uL (0.00-0.03); Imm Gran Pct Auto 0.3 % (0.0-0.4); Lymphocytes Absolute Auto 2.4 X10*3/uL (1.2-4.9); Lymphocytes Percent Auto 36.4 % (20-40); MANUAL DIFF FLAG SCAN; Mean Corpuscular HGB Conc 33.6 g/dl (31.0-35.0); Mean Corpuscular Hemoglobin 29.9 pg (27.0-33.0); Mean Corpuscular Volume 89.2 fL (80.0-98.0); Mean Platelet Volume 11.4 fL (9.4-12.3); Monocytes Absolute Auto 0.4 X10*3/uL (0.1-1.2); Monocytes Percent Auto 5.6 % (2-11); Neutrophils Absolute Auto 3.8 x10*3/uL (2.0-8.3); Neutrophils Percent Auto 56.5 % (45-73); Red Blood Count 4.61 X10*6/uL (4.20-5.50)
[2023-04-11 11:34] LABS: White Blood Count 6.7 X10*3/uL (4.8-10.8)
[2023-04-11 11:35] LABS: Anion Gap 12 (12-20); Blood Urea Nitrogen 10 mg/dL (9-16); Calcium 9.5 mg/dL (8.4-10.2); Carbon Dioxide 24 mmol/L (22-29); Chloride 108 mmol/L (96-108); Creatinine Clr Calc Pharmacy 88.3; Estimated Glomerular Filt Rate > 60; Glucose Random 113 mg/dL (60-115); Potassium 3.7 mmol/L (3.3-5.1); Sodium 140 mmol/L (135-145)
[2023-04-11 11:41] LABS: Lipase 17 U/L (8-78)
[2023-04-11 11:42] LABS: B Type Natriuretic Peptide 11 pg/mL (<100)
[2023-04-11 11:45] LABS: HCG Quantitative < 2 mIU/mL; Troponin-I High Sensitivity < 2.7 ng/L (<3.5-17.0)
[2023-04-11 11:47] LABS: Platelet Count 185 X10*3/uL (160-400)
[2023-04-11 11:48] LABS: SLIDE REVIEW VERIFIED
[2023-04-11 12:28] LABS: Influenza A PCR NEGATIVE (Negative); Influenza B PCR NEGATIVE (Negative); Resp Syncy Virus RNA Qual PCR NEGATIVE (Negative); SARS COV2 PCR INHOUSE NEGATIVE (Negative)
[2023-04-11] MEDS: iohexoL 350 MG/ML 100 ML INFUS..BTL 70 ML IV (12:50)
[2023-04-11 14:00] VITALS: BP 114/78; PULSE 83; RESP 18; TEMP 36.7; O2SAT 98
--- NOTE | 2023-04-11 14:15 | PC.NURSE ---
pt requesting to have her flexeril given to her to take at home, as she stated she is driving upon discharge and is aware advised not to drive on this med. MARIBEL fox aware pt to drive home. referred to pharmacy- RN called for pt.
== END 2023-04-11 14:14 | disposition home or self-care (01) ==
PROVIDERS: Physician Assistant Medical; Emergency Provider Emergency Medicine; PCP Internal Medicine
DX: M54.12 Radiculopathy, cervical region (principal); Z20.822 Contact with and (suspected) exposure to COVID-19; Z20.828 Contact with and (suspected) exposure to other viral communicable diseases
CPT/HCPCS: 0241U; 36415; 70496; 70498; 71046; 80048; 83690; 83880; 84484; 84702; 85025; 93005; 99284; 99285; Q9967

== ENCOUNTER 2023-06-05 11:48 | Outpatient (REF) | payer MEDICAID, SELFPAY ==
[2023-06-05 14:56] LABS: Alanine Aminotransferase 23 U/L (0-31); Albumin Level 3.9 g/dL (3.5-5.0); Alkaline Phosphatase 53 U/L (39-117); Anion Gap 9 (12-20); Aspartate Amino Transferase 18 U/L (5-31); Bilirubin Total 0.6 mg/dL (0.0-1.0); Blood Urea Nitrogen 17 mg/dL (9-16); Calcium 9.2 mg/dL (8.4-10.2); Carbon Dioxide 28 mmol/L (22-29); Chloride 103 mmol/L (96-108); Cholesterol 188 mg/dL (<200); Estimated Glomerular Filt Rate > 60; Glucose Fasting 79 mg/dL (60-99); HDL Cholesterol 58 mg/dL (>40); LDL Cholesterol Calculated 120 mg/dL (<100); Potassium 3.9 mmol/L (3.3-5.1); Sodium 136 mmol/L (135-145); Triglycerides 51 mg/dL (<150)
[2023-06-05 15:13] LABS: TSH reflex Free T4 0.78 uIU/mL (0.32-4.0)
[2023-06-06 04:29] LABS: ~Hepatitis C Antibody Nonreactive (Nonreactive)
== END 2023-06-05 11:49 | disposition home or self-care (01) ==
LOC: HO.CHCLDS 11:48
PROVIDERS: Visit Provider Internal Medicine
DX: Z00.00 Encounter for general adult medical examination without abnormal findings (principal); I05.0 Rheumatic mitral stenosis
CPT/HCPCS: 36415; 80053; 80061; 84443; 86803

== ENCOUNTER → 2023-06-17 14:52 | Outpatient (REF) | payer MEDICAID, SELFPAY | LOC: HO.CARD 14:52 | PROVIDERS: PCP Internal Medicine; Visit Provider Internal Medicine | DX: I05.0 Rheumatic mitral stenosis (principal) | CPT/HCPCS: 93306 ==

== ENCOUNTER 2023-07-15 14:26 | Outpatient (AMB) | payer MEDICAID, SELFPAY ==
--- NOTE | 2023-07-15 14:31 | MHC.OFFVIS ---
Intake Vital Signs 07/15/23 14:32 Height 5 ft 2 in Weight 110 lb 10.753 oz BMI 20.2 BP 110/60 Blood Pressure Location Lt brachial Position Sitting Pulse 83 Pulse Source Pulse Oximeter Intake Visit Reasons: NPV/Mitral valve stenosis/Beauzile Intake Note: VICE PRESIDENT OF DEVELOPMENT appointment complains of SOB at night Ophthalmology Surgical Technician Required: No Allergies No Known Allergies [No Known Allergies*] Allergy (Verified 07/15/23 14:36) Medication List - Last Reconciled 07/15/23 by Manny Mireles MD No Known Home Meds HPI HPI Comments History of Present Illness Details Macy was referred here for evaluation for mitral valve disease. She is a 33-year-old female who at age of 22 in [place] had undergone mitral valve surgery. From the description of it, it appears that patient had mitral regurgitation was having symptoms of heart failure and subsequently underwent but she says mitral valve repair with a mitral valve ring as well as tricuspid valve ring. However do not have the details of the report. Patient echocardiogram couple years ago here which showed mild mitral regurgitation with thick posterior mitral leaflet and bright shadow consistent with mitral annular ring with posterior resection and repair with possible [id number] mitral stenosis with a mean gradient at that time of 6 mmHg. Patient does not exercise regularly. Does not take any medications including no antibiotic prophylaxis. Patient says that her mitral valve disease was related to tonsillitis as a child when she was 9 years old. The surgery was done as above. She complains of exertional shortness of breath for the last 5 years since she had her 1st child. She has had no ever since. However more recently she has been complaining of having again shortness of breath when she is lying down. In March she had a blood work including BNP which was within normal limits. She has no history of anemia. She denies any leg edema, prolonged palpitation irregular heartbeat. She says she had a recent echocardiogram although I checked with the other cardiology office including also echocardiogram in the system here and the last echocardiogram done here was in 2021. She said she had lot of issues related to the surgery and developed anxiety and panic attack after that and also PTSD from a prior relationship. [facility] Surgical History Status post mitral valve repair Hx of tonsillectomy History of heart surgery Family History Mother HTN (hypertension) Social History Alcohol intake: never Review of Systems Const Denies chills, Denies daytime sleepiness, Denies fatigue, Denies fever(s), Denies frequent falls, Denies poor appetite, Denies snoring, Denies stops breathing during sleep, Denies weakness, Denies weight gain and Denies weight loss Eyes Denies loss of vision ENT Denies dizziness and Denies hearing loss Card Denies chest pain, Denies claudication, Denies leg edema, Denies lightheadedness, Denies palpitations, Reports dyspnea, Denies dyspnea on exertion and Denies orthopnea Resp Denies cough, Denies excessive phlegm production, Reports dyspnea, Denies dyspnea on exertion, Denies snoring and Denies wheezing GI Denies abdominal pain, Denies hematochezia, Denies change in bowel habits, Denies nausea and Denies vomiting Denies urinary frequency and Denies dysuria Musc Denies arthralgias, Denies muscle weakness, Denies numbness and Denies other (frequent falls) Skin/Breast Denies nail changes and Denies rash Neuro Denies Abnormal speech present, Denies dizziness, Denies frequent falls, Denies loss of vision, Denies memory loss, Denies numbness and Denies weakness Psych Denies depression and Denies memory loss Endo Denies fatigue and Denies palpitations Lucio/Lymph Reports easy bruising and Reports other (anemia) Aller/Immun Denies wheezing Physical Exam Vital Signs: Last Vital Signs Pulse 83 07/15/23 14:32 BP 110/60 07/15/23 14:32 BMI result Body Mass Index 20.2 Const General: cooperative, comfortable, no acute distress, alert, awake and Physically active Nutritional Appearance: thin Orientation/consciousness: patient oriented x3 Limitations: no limitations HEENT Head: Yes normocephalic and Yes atraumatic Chest Chest palpation & inspection: other (Well healed scar) Resp Effort & Inspection: normal respiratory effort Auscultation: clear to auscultation bilaterally Cardio Jugular venous distension: no JVD Palpation: normal PMI Rate: regular rate Rhythm: regular rhythm Heart sounds: S1 normal heart sound present, S2 normal heart sound present, no click, no gallops, no murmurs and no rubs Neuro General: patient oriented x3 Speech: No Abnormal speech present Assessment & Plan Assessment & Plan (1) Status post mitral valve repair: Comment: At age 22 in [place], records not available although appears that patient had severe mitral regurgitation. Also seems like she had tricuspid valve repair at that time with a ring Code(s): Z98.890 - Other specified postprocedural states Plan: Patient appears to have mitral valve repair for what appears to be mitral regurgitation at age 22 with symptoms at that time. She has recurrent symptoms at this time with shortness of breath laying down. Although clinically she does not have any significant mitral regurgitation murmur of mitral stenosis. EKG done in March at shown no acute changes. She had a stress echocardiogram last May which was within normal limits although this was looking for myocardial ischemia. She had an echocardiogram 2 years ago which had shown as mention mitral valve repair with mild mitral regurgitation [id number] mitral stenosis with mean gradient of 6 mmHg. At this point time I would suggest repeat another echocardiogram to assess for worsening mitral regurgitation and/or mitral stenosis and development of pulmonary hypertension. This will be scheduled in near future. In absence of any worsening, her symptoms of shortness of breath appear to be probably related to deconditioning and possibly anxiety stress. She should be on low-dose aspirin therapy to reduce neurologic events. Also suggest antibiotic prophylaxis for prevention of endocarditis. Unsure if she has any allergies, she has not sure. Would consider amoxicillin 2 g prior to any dental workup. Will follow up in the clinic in 1 year's time, sooner p.r.n.. Thank you for allowing me to partake in the care Orders: Orders CA echo transthoracic complete Today Z98.890 - Other specified postprocedural states Coding Level of Care Code New Pt Level 4 (27313) Diagnoses Status post mitral valve repair Z98.890
[2023-07-15 14:32] VITALS: BP 110/60; PULSE 83; BMI 20.2
== END 2023-07-15 16:04 | disposition home or self-care (01) ==
PROVIDERS: PCP Internal Medicine; Visit Provider Internal Medicine Cardiovascular Disease
DX: Z98.890 Other specified postprocedural states (principal)
CPT/HCPCS: 99204

== ENCOUNTER → 2023-07-15 14:26 | Outpatient (BNVA) | payer MEDICAID, SELFPAY | PROVIDERS: PCP Internal Medicine; Visit Provider Internal Medicine Cardiovascular Disease | DX: Z98.890 Other specified postprocedural states (principal) | CPT/HCPCS: 99202 ==

== ENCOUNTER 2023-08-02 16:21 | Outpatient (REF) | payer MEDICAID, SELFPAY ==
[2023-08-03 04:01] LABS: Syphilis Screen Nonreactive (Nonreactive)
[2023-08-04 20:48] LABS: TS Negative Control Passed; TS Panel A 0; TS Panel B 0; TS Positive Control Passed; TSpotTB Negative (Negative)
== END 2023-08-02 16:22 | disposition home or self-care (01) ==
LOC: HO.LAB 16:21
PROVIDERS: PCP Internal Medicine; Visit Provider Internal Medicine
DX: Z02.89 Encounter for other administrative examinations (principal); Z11.1 Encounter for screening for respiratory tuberculosis
CPT/HCPCS: 36415; 86481; 86780

== ENCOUNTER 2023-08-06 13:14 | Outpatient (REF) | payer MEDICAID, SELFPAY ==
[2023-08-06 14:58] LABS: Alanine Aminotransferase 18 U/L (0-31); Albumin Level 3.9 g/dL (3.5-5.0); Alkaline Phosphatase 54 U/L (39-117); Anion Gap 10 (12-20); Aspartate Amino Transferase 11 U/L (5-31); Bilirubin Total 0.4 mg/dL (0.0-1.0); Blood Urea Nitrogen 9 mg/dL (9-16); Calcium 8.7 mg/dL (8.4-10.2); Carbon Dioxide 25 mmol/L (22-29); Chloride 107 mmol/L (96-108); Cholesterol 176 mg/dL (<200); Estimated Glomerular Filt Rate > 60; Glucose Random 99 mg/dL (60-115); HDL Cholesterol 59 mg/dL (>40); LDL Cholesterol Calculated 104 mg/dL (<100); Potassium 3.8 mmol/L (3.3-5.1); Sodium 138 mmol/L (135-145); Total Protein 6.9 g/dL (6.5-8.0); Triglycerides 67 mg/dL (<150)
[2023-08-06 15:20] LABS: TSH reflex Free T4 0.79 uIU/mL (0.32-4.0)
[2023-08-07 08:08] LABS: ~HepC Num1 0.15 S/CO (0.00-0.79); ~Hepatitis C Antibody Nonreactive (Nonreactive)
== END 2023-08-06 13:15 | disposition home or self-care (01) ==
LOC: HO.LAB 13:14
PROVIDERS: PCP Internal Medicine; Visit Provider Internal Medicine
DX: Z00.00 Encounter for general adult medical examination without abnormal findings (principal); I05.0 Rheumatic mitral stenosis
CPT/HCPCS: 36415; 80053; 80061; 84443; 86803

== ENCOUNTER 2024-01-14 17:11 | Outpatient (REF) | payer MEDICAID, SELFPAY ==
[2024-01-15 09:37] LABS: CT PCR NOT DETECTED (Not Detect.); NG PCR NOT DETECTED (Not Detect.)
== END 2024-01-14 17:12 | disposition home or self-care (01) ==
LOC: HO.HHCLNP 17:11
PROVIDERS: Visit Provider Advanced Practice Midwife
DX: N89.8 Other specified noninflammatory disorders of vagina (principal)
CPT/HCPCS: 87491; 87591

== ENCOUNTER 2024-06-30 17:29 | Outpatient (REF) | payer MEDICAID, SELFPAY ==
--- OUTSIDE RECORDS SUMMARY | 2024-06-30 17:32 | XMS_ITS | Encounter Summary ---
Author Organization [employer] Address [address] [facility] 7t [place] [address] Care Team Providers Care Child Care Aide Name Role Phone Dolores Serrano MD Primary Care Provider Manny Mireles MD Unavailable Encounter Details Date Type Department Care Team ([facility] st Contact Info) Description 06/18/2023 Orders Only [facility] [address] [place] [address] Dolores Serrano MD [address] [place] [address] Pelvic varices (Primary Dx) Social History Tobacco Use Types Packs/Day Years Used Date Smoking Tobacco: Never Smokeless Tobacco: Never Depression Answer Date Recorded Patient Health Questionnaire-9 Score 10 06/05/2023 Patient Health Questionnaire-9 Score 10 06/05/2023 Last PHQ-9: Questionnaire Data Not on file 0 06/05/2023 Housing Stability Answer Date Recorded What is your housing situation today? I have raymondanshul reddy 05/27/[address] you li ve. Do you have problems with any of the following? None of the above 05/27/2023 Food Insecurity Answer Date Recorded Within the past 12 months, y ou worried that your food would run out before you got money to buy more: Never True 03/08/2023 Within the past 12 months,th e food you bought just didn't last and you didn't have enough money to get more: Never True Transportation Answer Date Recorded In the past 12 months, has l ack of transportation kept you from medical appts, meetings, work or from getting things needed for daily living? No 03/08/2023 Utilities Answer Date Recorded In the past 12 months, has t he electric, gas, oil or water company threatened to shut off services in your home? No 03/08/2023 Depression Answer Date Recorded Patient Health Questionnaire-2 Score 2 06/05/2023 Comments Unknown Sex and Gender Information Value Date Recorded Sex Assigned at Female 03/19/2022 10:38 AM EDT Legal Sex Female 10:38 AM EDT Gender Identity Female 03/19/2022 10:38 AM EDT Sexual Orientation Straight 03/19/2022 10 :38 AM EDT documented as of this encounter Plan of Treatment Upcoming Encounters Date Type Department Care Team (Late st Contact Info) Description 07/03/2024 3:00 PM EST Office Visit [facility] [address] [place] [address] Love Scott 07/30/2024 1:15 PM EDT Office Visit [facility] [address] [place] [address] Dolores Serrano MD [address] [place] [address] documented as of this encounter Visit Diagnoses Diagnosis Pelvic varices- Primary documented in this encounter Additional Health Concerns Assessment Noted Time PHQ-9 Depression Total Score: 10 024 11:28 AM EST documented as of this encounter Care Teams Child Care Aide Relationship Specialty Start Date End Date Dolores Serrano MD [address] [place] [address] PCP - General Internal Medicine 01/30/21 Manny Mireles MD [address] [place] [address] 3rd [place] [address] Cardiology 05/28/24 documented as of this encounter
--- OUTSIDE RECORDS SUMMARY | 2024-06-30 17:32 | XMS_ITS | Encounter Summary ---
Author Organization [employer] Address [address] [facility] 7t [place] [address] Care Team Providers Care Qa Software Test Engineer Name Role Phone Dolores Serrano MD Primary Care Provider [phone]- [phone] Manny Mireles MD Unavailable Reason for Visit * Reason Onset Date Comments triage pt 1 out of 2 06/01/2024 Encounter Details Date Type Department Care Team ([facility] Contact Info) Description 06/01/2024 Telephone [facility] [address] [place], [place] [phone] Dolores Serrano MD [address] [place] [address] triage pt 1 out of 2 Social History Tobacco Use Types Packs/Day Years Used Date Smoking Tobacco: Never Smokeless Tobacco: Never Alcohol Use Standard Drinks/Week Comments Never 0 (1 standard drink = 0.6 oz pur e alcohol) Depression Answer Date Recorded Patient Health Questionnaire-9 Score 17 09/19/2023 Patient Health Questionnaire-9 Score 17 09/19/2023 Last PHQ-9: Questionnaire Data Not on file 0 09/19/2023 Housing Stability Answer Date Recorded What is your housing situation today? I have raymond reddy 05/27/[address] you [...] Answer Date Recorded Patient Health Questionnaire-2 Score 4 09/19/2023 Comments No Sex and Gender Information Value Date Recorded Sex Assigned at Female 03/19/2022 10:38 AM EDT Legal Sex Female 10:38 AM EDT Gender Identity Female 03/19/2022 10:38 AM EDT Sexual Orientation Straight 03/19/2022 10 :38 AM EDT documented as of this encounter Miscellaneous Notes * Telephone Encounter - Candace Holbrook RN - 06/01/2024 1:56 PM EST Call returned to Macy Jarvis to triage below. Reports having a dry cough x 3 weeks. Pt reportshaving stress incontinence. Pt also having pelvic/vaginal pain on left side. Denies any pain with passing urine, odor or dark color. Pt denies any frequency or urgency. Pt also unable to hold urine when gets urge to go. Pt advised of disposition, agrees to sick on site this week with provider covering [facility]. Reviewed home care advise, ER precautions and reasons to call back. Multiple (2) protocols were used on this call. Disposition for Call: See in Office or Video Visit within 3 Days Future Appointments Date Time Provider Department Center [facility] 07/03/2024 3:00 PM Love Scott [facility] Insurance verified as active per Real Time Eligibility in [facility]. Protocol Used: Cough (Adult) Protocol-Based Disposition: See in Office or Video Visit within 3 Days Positive Triage Question: * Cough has been present for > 3 weeks * All higher-acuity triage questions were negative Care Advice Discussed: * Reassurance and Education - Cough * Prevent Dehydration * Humidifier * Reasons To Call Back - Difficulty breathing - You become worse Protocol Used: Urinary Symptoms (Adult) Protocol-Based Disposition: See in Office or Video Visit within 2 Weeks Positive Triage Question: * Can't control passage of urine (i.e., urinary incontinence, wetting self) and present > 2 weeks * All higher-acuity triage questions were negative Care Advice Discussed: * Pads and Underwear for Incontinence * Caffeine, Alcohol, and Foods * Reasons To Call Back - Fever occurs - Pain or burning with urination - You become worse * Telephone Encounter - Noemi Barnard - 06/01/2024 12:50 PM EST Symptom: Vaginal Symptoms and also having cough - Not Bleeding Outcome: Schedule an appointment to be seen within 24 hours Reason: Caller denied all higher acuity questions The caller accepted this outcome. documented in this encounter Plan of Treatment Upcoming Encounters Date Type Department Care Team (Late st Contact Info) Description 07/03/2024 3:00 PM EST Office Visit [facility] [address] [place] [address] Love Scott 07/30/2024 1:15 PM EDT Office Visit [facility] [address] [place] [address] Dolores Serrano MD [address] [place] [address] documented as of this encounter Visit Diagnoses Not on filedocumented in this encounter Additional Health Concerns Assessment Noted Time PHQ-9 Depression Total Score: 17 024 9:55 AM EDT documented as of this encounter Care Teams Qa Software Test Engineer Relationship Specialty Start Date End Date Dolores Serrano MD [address] [place] [address] PCP - General Internal Medicine 01/30/21 Manny Mireles MD [address] [place] [address] 3rd [place] [address] Cardiology 05/28/24 documented as of this encounter
--- OUTSIDE RECORDS SUMMARY | 2024-06-30 17:32 | XMS_ITS | Encounter Summary ---
Author Organization [employer] [facility] Address [address] [facility] [address] 7[address] [place] [address] Care Team Providers Care Personal Care Aide Name Role Phone Dolores Serrano MD Primary Care Provider [phone]- [phone] Manny Mireles MD Unavailable Encounter Details Date Type Department Care Team (Late st Contact Info) Description 06/30/2024 9:20 AM EST Office Visit [facility] [address] [place] [phone] Siomara Burdick MD [address] [place] [phone] Sore throat (Primary Dx); Cough in adult patient; Diarrhea, unspecified type Social History Tobacco Use Types Packs/Day Years [...] AM EDT documented as of this encounter Last Filed Vital Signs Vital Sign Reading Time Taken Comments Blood Pressure 121/77 06/30/2024 8:56 AM EST Pulse 91 06/30/2024 8:56 AM EST Temperature 36.7 ??C (98 ??F) 06/30/2024 8:56 AM EST Respiratory Rate 16 06/30/2024 8:56 AM EST Oxygen Saturation 100% 06/30/2024 8:56 AM EST RA Inhaled Oxygen Concentration - - Weight - - Height - - Body Mass Index - - documented in this encounter Progress Notes * Siomara Burdick MD - 06/30/2024 9:20 AM EST Subjective Patient ID: Macy Jarvis is a 34 y.o. female wit h past medical history of mitral stenosis anxiety and panic attacks who presents to walk in clinic for pain in throat. Pt reports throat swollen, ate something yesterday with seafood with shrimp and scallops and spicy, soup, around noon and felt rare then had more brought home and when she was eating it felt pain in throat. She and associated dizziness. There was no skin changes, itching, mouth sensation or swelling. No fevers. A few hours later she developed diarrhea. She rerots slight cough. No history of allergies. No nausea or vomiting. Denies possibility of . Review of Systems HENT: Negative for congestion, facial swelling, mouth sores, postnasal drip, rhinorrhea and troubleswallowing. Respiratory: Positive for cough. Negative for shortness of breath and wheezing. Cardiovascular: Negative for chest pain. Neurological: Positive for dizziness. Objective Visit Vitals BP 121/77 (BP Location: Right arm, Patient Position: Sitting, BP Cuff Size: Adult) Pulse 91 Temp 98 ??F (36.7 ??C) (Temporal) Resp 16 There is no height or weight on file to calculate BMI. Physical Exam Constitutional: Appearance: Normal appearance. HENT: Right Ear: Tympanic membrane normal. Left Ear: Tympanic membrane normal. Nose: No congestion or rhinorrhea. Mouth/Throat: Pharynx: Oropharynx is clear. No oropharyngeal exudate. Comments: Absence of tonsils, beefy red oropharynx without exudate. Midline uvula. Eyes: Conjunctiva/sclera: Conjunctivae normal. Cardiovascular: Rate and Rhythm: Normal rate and regular rhythm. Heart sounds: Normal heart sounds. Pulmonary: Effort: Pulmonary effort is normal. Breath sounds: Normal breath sounds. Abdominal: Comments: Soft, mild epigastric tenderness. Non distended. No rebound or guarding. Normoactive bowel sound. No hepatospleenomegaly. Musculoskeletal: Cervical back: Normal range of motion. No rigidity or tenderness. Lymphadenopathy: Cervical: Cervical adenopathy present. Neurological: Mental Status: She is alert. Psychiatric: Behavior: Behavior normal. Problem List Items Addressed This Visit Sore throat - Primary Pt with < 24 hours sore throat, diarrhea associated with eating a spicy seafood soup. Differential includes viral, food pathogen vs allergic reaction (less likely). NO evidence of respiratory distress. Rapid covid, flu and strep negative. -send out strep 06/30/24 -acetaminophen prn pain -no evidence of dehydration on exam -no evidence of acute abdomen -supportive care with fluids -ER precautions discussed -note for work given. Advised she can call if needs the note changed and she will let us know what she needs. Relevant Medications Acetaminophen 500 MG capsule Other Relevant Orders Culture, Throat Other Visit Diagnoses Cough in adult patient Relevant Orders Influenza A (ID NOW Rapid Molecular) (Completed) Influenza B (ID NOW Rapid Molecular) (Completed) POCT rapid strep A manually resulted (Completed) POCT Rapid COVID Ag (Completed) Diarrhea, unspecified type * Gail Michaud RN - 06/30/2024 9:20 AM EST Pt reports she ate seafood, including a spicy soup with scallops and shrimp, from a restaurant yesterday around noon and felt throat discomfort but again had more at home around 7PM and felt pain inthroat, right ear pain and dizziness, SOB, mid-sternal chest pain and diarrhea(diarrhea started around 0300 today, two times). No respiratory distress noted at time of triage. Pt speaking in full sentences. Pt sating 100%RA. Pt reports she has ate scallops and shrimp prior and had no reaction. Pt reports she took yajaira, throat spray (around 10PM) rosie tea with honey without help. Pt denies food allergies. Vitals obtained. Verbal report given to Dr. Burdick and [facility]. documented in this encounter Miscellaneous Notes * Assessment & Plan Note - Siomara Burdick MD - 06/30/2024 9:50 AM EST Associated Problem(s): Sore throat Pt with < 24 hours sore throat, diarrhea associated with eating a spicy seafood soup. Differential includes viral, food pathogen vs allergic reaction (less likely). NO evidence of respiratory distress. Rapid covid, flu and strep negative. -send out strep 06/30/24 -acetaminophen prn pain -no evidence of dehydration on exam -no evidence of acute abdomen -supportive care with fluids -ER precautions discussed -note for work given. Advised she can call if needs the note changed and she will let us know what she needs. documented in this encounter Plan of Treatment Upcoming Encounters Date Type Department Care Team (Late st Contact Info) Description 07/03/2024 3:00 PM EST Office Visit [facility] [address] [place] [address] Love Scott 07/30/2024 1:15 PM EDT Office Visit [facility] [address] [place] [address] Dolores Serrano MD [address] [place] [address] Scheduled Orders Name Type Priority Associated Diagnoses Orde r Schedule Culture, Throat Microbiology Routine Sore throat Ordered: 06/30/2024 documented as of this encounter Procedures Procedure Name Priority Date/Time Associated Diagnosis Comments POCT INFLUENZA B (ID NOW RAPID MOLECULAR) Routine 06/30/2024 9:55 AM EST Cough in adult patient POCT INFLUENZA A (ID NOW RAPID MOLECULAR) Routine 06/30/2024 9:54 AM EST Cough in adult patient POCT RAPID COVID ANTIGEN Routine 06/30/2024 9:39 AM EST Cough in adult patient POCT RAPID STREP A Routine 06/30/2024 9: 39 AM EST Cough in adult patient documented in this encounter Results * Influenza B (ID NOW Rapid Molecular) (06/30/2024 9:55 AM EST) [facility] Influenza B Negative Negative, Indeterminate [facility] Swab 06/30/2024 9:55 AM EST Siomara Burdick MD POINT OF CARE TEST ENTER/E DIT ORDERABLES Final Result [facility] [address] [place] [address] [phone] * Influenza A (ID NOW Rapid Molecular) (06/30/2024 9:54 AM EST) [facility] Influenza A Negative Negative, Indeterminate [facility] Swab 06/30/2024 9:54 AM EST Siomara Burdick MD POINT OF CARE TEST ENTER/E DIT ORDERABLES Final Result [facility] [address] [place] [address] [phone] * POCT Rapid COVID Ag (06/30/2024 9:39 AM EST) Rapid COVID Ag Negative Swab 06/30/2024 9:39 AM EST Siomara Burdick MD POINT OF CARE TEST ENTER/E DIT ORDERABLES Final Result * POCT rapid strep A manually resulted (06/30/2024 9:39 AM EST) Pathologist [facility] Rapid Strep A Screen Negative Negative, None Detected Swab 06/30/2024 9:39 AM EST Result [facility] Siomara Burdick MD POINT OF CARE TEST ENTER/E DIT ORDERABLES Final Result documented in this encounter Visit Diagnoses Diagnosis Sore throat- Primary Acute pharyngitis Cough in adult patient Diarrhea, unspecified type documented in this encounter Additional Health Concerns Assessment Noted Time PHQ-9 Depression Total Score: 17 024 9:55 AM EDT documented as of this encounter Care Teams Personal Care Aide Relationship Specialty Start Date End Date Dolores Serrano MD [address] [place] [phone] PCP - General Internal Medicine 01/30/21 Manny Mireles MD [address] [place] [address] Cardiology 05/28/24 documented as of this encounter
--- OUTSIDE RECORDS SUMMARY | 2024-06-30 17:32 | XMS_ITS | Encounter Summary ---
Author Organization [employer] [facility] Address [address] [place] [address] Care Team Providers Care Manager Intensive Care Unit Name Role Phone Dolores Serrano MD Primary Care Provider [phone]- [phone] Manny Mireles MD Unavailable Encounter Details Date Type Department Care Team (Latest Contact Info) Description 06/03/2024 Travel Social History Tobacco Use Types Packs/Day Years [...] 07/03/2024 3:00 PM EST Office Visit [facility] [address] [place] [address] Love Scott 07/30/2024 1:15 PM EDT Office Visit [facility] [address] [place] [address] Dolores Serrano MD [address] [place] [address] documented as of this encounter Visit Diagnoses Not on filedocumented in this encounter Additional Health Concerns Assessment Noted Time PHQ-9 Depression Total Score: 17 024 9:55 AM EDT documented as of this encounter Care Teams Manager Intensive Care Unit Relationship Specialty Start Date End Date Dolores Serrano MD [address] [place] [address] PCP - General Internal Medicine 01/30/21 Manny Mireles MD [address] [place] [address] Drive 3rd [place] [address] Cardiology 05/28/24 documented as of this encounter
--- OUTSIDE RECORDS SUMMARY | 2024-06-30 17:32 | XMS_ITS | Encounter Summary ---
Author Organization [facility] Address [address] [place] [address] 7 [place] [address] Care Team Providers Care Digging Machine Operator Name Role Phone Dolores Serrano MD Primary Care Provider [phone] Manny Mireles MD Unavailable Reason for Referral * Consultation (Routine) - Closed Specialty Diagnoses / Procedures Referred By Janine cortez Referred To Contact Physical Therapy Diagnoses Stress incontinence Tali Shelby FNP [address] [place] [address] Phone: tel: fax: [facility] [address] [place] [address] Phone: tel: fax: Referral ID Status Reason Start Date Expiration Date V isits Requested Visits Authorized [id number] Closed Specialty Services Required 06/04/2024 06/04/2025 20 20 Encounter Details Date Type Department Care Team (Late st Contact Info) Description 06/03/2024 11:30 AM EST Office Visit [facility] & PEDS [address] [place], [place] [phone] Tali Shelby FNP [address] [place] [address] Stress incontinence (Primary Dx) Social History Tobacco Use Types [...] Sign Reading Time Taken Comments Blood Pressure 110/63 06/03/2024 11:50 AM EST Pulse 80 06/03/2024 11:50 AM EST Temperature 36.3 ??C (97.4 ??F) 06/03/2024 11:[address] Respiratory Rate 20 06/03/2024 11:50 AM EST Oxygen Saturation 98% 06/03/2024 11:50 AM EST Inhaled Oxygen Concentration - - Weight 53.3 kg (117 lb 6.4 oz) 06/03/2024 11:50 AM EST Height 154.9 cm (5' 1 ) 06/03/2024 11:50 AM EST Body Mass Index 22.18 06/03/2024 11:50 AM EST documented in this encounter Progress Notes * [facility], GROUP MANAGER - 06/03/2024 11:30 AM EST SUBJECTIVE: Macy Jarvis is a 34 y.o. year old female who presents for evaluation of urinary incontinence HPI > 1 year incontinence-->coughing,sneezing, urge incontinence Vaginal delivery > 6 years ago. Sx gradually worsening since this time. No vaginal discharge, dysuria, pelvic pain LMP: 05/20/2024 No control, not currently sexually active. Declines counseling Patient Active Problem List Diagnosis Anxiety Mitral stenosis Panic attacks Family problems Review of Systems Constitutional: Negative for fever. HENT: Negative. Respiratory: Negative for shortness of breath. Cardiovascular: Negative for chest pain. Gastrointestinal: Negative for abdominal pain. Genitourinary: See HPI Neurological: Negative for dizziness and weakness. OBJECTIVE: Vitals: 06/03/24 1150 BP: 110/63 Pulse: 80 Resp: 20 Temp: 97.4 ??F (36.3 ??C) SpO2: 98% Physical Exam Exam conducted with a physician pediatrician present. Constitutional: General: She is not in acute distress. Appearance: Normal appearance. HENT: Head: Normocephalic and atraumatic. Right Ear: External ear normal. Left Ear: External ear normal. Nose: Nose normal. Eyes: Conjunctiva/sclera: Conjunctivae normal. Pulmonary: Effort: Pulmonary effort is normal. Genitourinary: Vagina: No tenderness or prolapsed vaginal leal. Cervix: No cervical motion tenderness. Uterus: Normal. Adnexa: Right adnexa normal and left adnexa normal. Comments: Decreased pelvic tone Neurological: General: No focal deficit present. Mental Status: She is alert and oriented to person, place, and time. Psychiatric: Mood and Affect: Mood normal. Behavior: Behavior normal. ASSESSMENT/PLAN 1. Stress incontinence (Primary) - UA in office WNL - Pelvic exam with weakness in pelvic floor contraction - Referral to pelvic floor PT - Avoid bladder irritants to include caffinated, sugary and fizzy beverages - Avoid constipation - Frequent voiding - POCT Urinalysis - Referral to Physical Therapy; Future - Referral to Physical Therapy Follow Up: PRN Current Outpatient Medications on File Prior to Visit Medication Sig Dispense Refill amoxicillin (Amoxil) 500 MG capsule Take 4 tabs (2 grams) 1 hour prior to dental procedure 4 capsule 3 azithromycin (Zithromax) 250 MG tablet Take 2 tablets by mouth on day 1. Then 1 tablet per mouth for 4 days. 6 tablet 0 No current facility-administered medications on file prior to visit. Guinean Translation: Provided by [facility] staff member documented in this encounter Plan of Treatment Upcoming Encounters Date Type Department Care Team (Late st Contact Info) Description 07/03/2024 3:00 PM EST Office Visit [facility] ADULT DENTAL [address] [place] [address] [place] 07/30/2024 1:15 PM EDT Office Visit [facility] MED & PEDS [address], [place] [phone] Dolores Serrano MD [address] [place] [address] Scheduled Referrals Name Type Priority Associated Diagnoses Orde r Schedule Referral to Physical Therapy Outpatient Referral Routine Stress incontinence Expected: 06/03/2024 (Approximate), Expires: 06/03/2025 documented as of this encounter Procedures Procedure Name Priority Date/Time Associated Diagnosis Comments POCT URINALYSIS DIPSTICK Routine 06/03/2024 3:41 PM EST Stress incontinence documented in this encounter Results * POCT Urinalysis (06/03/2024 3:41 PM EST) Color, UA Yellow Clarity, UA Clear Glucose, UA Negative Bilirubin, UA Negative Ketones, UA Positive Comment:TRACE Spec Grav, UA 1.025 Blood, UA Negative Negative, None Detected pH, UA 6.5 Protein, UA Negative Urobilinogen, UA 0.2 Leukocytes, UA Trace Negative, Rare, Trace Nitrite, UA Negative Negative, None Detected Appearance, UA CLEAR QC Media Lot # [id number] Lot# Expiration Date Urine 06/03/2024 3:41 PM EST Tali LE POINT OF CARE TEST ENTER/EDIT ORDERABLES Final Result documented in this encounter Visit Diagnoses Diagnosis Stress incontinence- Primary Female stress incontinence documented in this encounter Additional Health Concerns Assessment Noted Time PHQ-9 Depression Total Score: 17 024 9:55 AM EDT documented as of this encounter Care Teams Digging Machine Operator Relationship Specialty Start Date End Date Dolores Serrano MD [address] [place] [id number] PCP - General Internal Medicine 01/30/21 Manny Mireles MD [address] [place] [address] 3rd [place] [address] Cardiology 05/28/24 documented as of this encounter
--- OUTSIDE RECORDS SUMMARY | 2024-06-30 17:32 | XMS_ITS | Encounter Summary ---
Author Organization [employer] Address [address] [place] [address] Care Team Providers Care Yard Conductor Name Role Phone Dolores Serrano MD Primary Care Provider [phone]- [phone] Manny Mireles MD Unavailable Encounter Details Date Type Department Care Team ([facility] st Contact Info) Description 06/04/2024 Telephone [facility] [address] [place], [place] [phone] [facility] [address] [place], [place] [phone] Social History Tobacco Use Types Packs/Day Years [...] Description 07/03/2024 3:00 PM EST Office Visit [facility] ADULT DENTAL [address] [place] [address] [place] 07/30/2024 1:15 PM EDT Office Visit [facility] MED & PEDS [address] [place] [address] Dolores Serrano MD [address] [place] [address] documented as of this encounter Visit Diagnoses Not on filedocumented in this encounter Additional Health Concerns Assessment Noted Time PHQ-9 Depression Total Score: 17 024 9:55 AM EDT documented as of this encounter Care Teams Yard Conductor Relationship Specialty Start Date End Date Dolores Serrano MD [address] [place] [address] PCP - General Internal Medicine 01/30/21 Manny Mireles MD [address] [place] [address] 3rd [place] [address] Cardiology 05/28/24 documented as of this encounter
--- OUTSIDE RECORDS SUMMARY | 2024-06-30 17:32 | XMS_ITS | Clinical Summary ---
Author Organization [facility] Address [address] [place] [address] Care Team Providers Care Stogy Maker Name Role Phone Dolores Serrano MD Primary Care Provider Manny Mireles MD Unavailable Allergies Active Allergy Reactions Criticality Noted Date Comments Bevacizumab 01/08/2023 Metronidazole Palpitations Medium 01/22/2024 Medications * This document contains information received from the source organization and may not represent a complete record from that organization. amoxicillin (Amoxil) 500 MG capsule Take 4 tabs (2 grams) 1 hour prior to dental procedure 4 capsule 3 4 Active azithromycin (Zithromax) 250 MG tabletIndicatio ns:Bronchitis Take 2 tablets by mouth on day 1. Then 1 tablet per mouth for 4 days. 6 tablet 5 Active Acetaminophen 500 MG capsuleIndicati ons:Sore throat Take 1 capsule (500 mg) by mouth every 8 (eight) hours if needed for moderate pain or fever. 30 capsule 5 07/31/19 25 Active Active Problems Problem Noted Date Diagnosed Date Sore throat 06/30/2024 Assessment & Plan (06/30/2024 9:55 AM EST): Pt with < 24 hours sore throat, [...] will let us know what she needs. Panic attacks 09/17/2023 Assessment & Plan (09/19/2023 3:58 PM EDT): During IBH Consult Macy presenting with excessive worry/anxiety, difficulty controlling worry, restless/keyed up/On edge, easily fatigued, difficulty concentrating/Mind going blank , irritability, muscle tension, and sleep disturbance difficulty falling asleep and palpitations, sweating, trembling/shaking, sensation of shortness of breath/smothering, Chest pain/discomfort, dizzy/unsteady/light-headed/faint, Chills/heat sensation; for a period of 18+ mo, for all symptoms in the context of recent move and relationship issues. During today's session, Macy reported worsening of sxs since she lost services and clinical care. Aware of coping mechanisms and self-care practice, however, due to severity of sxs patient is unable to utilize grounding mechanisms. PLAN: (check all that apply) New/Additional Services needed On-site non-integrated services Off-site services for Behavioral Health Integration Plan External OP therapy referral Patient Self Plan Patient to utilize skills provided in intervention , Patient to reach out to [facility] team as needed, Patient to engage in OP therapy , and Patient to reach out to HC as needed Family problems 09/17/2023 Assessment & Plan (09/19/2023 3:58 PM EDT): During IBH Consult Macy presenting with excessive worry/anxiety, difficulty controlling worry, restless/keyed up/On edge, easily fatigued, difficulty concentrating/Mind going blank , irritability, muscle tension, and sleep disturbance difficulty falling asleep and palpitations, sweating, trembling/shaking, sensation of shortness of breath/smothering, Chest pain/discomfort, dizzy/unsteady/light-headed/faint, Chills/heat sensation; for a period of 18+ mo, for all symptoms in the context of recent move and relationship issues. During today's session, Macy reported worsening of sxs since she lost services and clinical care. Aware of coping mechanisms and self-care practice, however, due to severity of sxs patient is unable to utilize grounding mechanisms. PLAN: (check all that apply) New/Additional Services needed On-site non-integrated services Off-site services for Behavioral Health Integration Plan External OP therapy referral Patient Self Plan Patient to utilize skills provided in intervention , Patient to reach out to [facility] team as needed, Patient to engage in OP therapy , and Patient to reach out to [facility] as needed Anxiety 01/09/2023 Assessment & Plan (09/19/2023 3:58 PM EDT): During IB Consult Macy presenting with excessive worry/anxiety, difficulty controlling worry, restless/keyed up/On edge, easily fatigued, difficulty concentrating/Mind going blank , irritability, muscle tension, and sleep disturbance difficulty falling asleep and palpitations, sweating, trembling/shaking, sensation of shortness of breath/smothering, Chest pain/discomfort, dizzy/unsteady/light-headed/faint, Chills/heat sensation; for a period of 18+ mo, for all symptoms in the context of recent move and relationship issues. During today's session, Macy reported worsening of sxs since she lost services and clinical care. Aware of coping mechanisms and self-care practice, however, due to severity of sxs patient is unable to utilize grounding mechanisms. PLAN: (check all that apply) New/Additional Services needed On-site non-integrated services Off-site services for Behavioral Health Integration Plan External OP therapy referral Patient Self Plan Patient to utilize skills provided in intervention , Patient to reach out to [facility] team as needed, Patient to engage in OP BH therapy , and Patient to reach out to [facility] as needed Mitral stenosis 01/09/2023 Encounters Date Type Department Care Team Description 06/30/2024 9:20 AM EST Office Visit [facility] [address] [place] [address] Siomara Burdick MD Sore throat (Primary Dx); Cough in adult patient; Diarrhea, unspecified type 06/04/2024 Telephone [facility] [address] [place] [address] Tali Shelby FNP 06/03/2024 11:30 AM EST Office Visit [facility] [address] [place], [place] [phone] [place], [place], YAM CURER Stress incontinence (Primary Dx) 06/03/2024 Travel 06/01/2024 Telephone [facility] [address], [place] [phone] Dolores Serrano MD triage pt 1 out of 2 05/27/2024 5:00 PM EST Office Visit [facility] [address], [place] [phone] Zoey Benjamin, YAM CURER Bronchitis (Primary Dx); Cough in adult 04/03/2024 Telephone [facility] [address], [place] [phone] Dolores Serrano MD No Show 04/02/2024 Telephone [facility] [address], [place] [phone] Dolores Serrano MD Chart Prep from Last 3 Months Immunizations Name Administration Dates Next Due HPV 9-Valent 08/05/2023 HepB-CpG 08/07/2023 Influenza injectable quadrivalent preservative f ree 06/05/2023 MMR 08/08/2023 Pneumococcal Conjugate PCV 20 06/05/2023 Tdap 08/05/2023 Social History Tobacco Use Types Packs/Day Years Used Date Smoking Tobacco: Never Smokeless Tobacco: Never Tobacco Cessation:Counseling Given: Not Answered Alcohol Use Standard Drinks/Week Comments Never 0 (1 standard drink = 0.6 oz pur e alcohol) Depression Answer Date Recorded Patient Health Questionnaire-9 Score 17 09/19/2023 Patient Health Questionnaire-9 Score 17 09/19/2023 Last PHQ-9: Questionnaire Data Not on file 0 09/19/2023 Housing Stability Answer Date Recorded What is your housing situation today? I have rayomnd reddy 05/27/[address] you [...] Orientation Straight 03/19/2022 10 :38 AM EDT Last Filed Vital Signs Vital Sign Reading Time Taken Comments Blood Pressure 121/77 06/30/2024 8:56 AM EST Pulse 91 06/30/2024 8:56 AM EST Temperature 36.7 ??C (98 ??F) 06/30/2024 8:56 AM EST Respiratory Rate 16 06/30/2024 8:56 AM EST Oxygen Saturation 100% 06/30/2024 8:56 AM EST RA Inhaled Oxygen Concentration - - Weight 53.3 kg (117 lb 6.4 oz) 06/03/2024 11:50 AM EST Height 154.9 cm (5' 1 ) 06/03/2024 11:50 AM EST Body Mass Index 22.18 06/03/2024 11:50 AM EST Plan of Treatment Upcoming Encounters Date Type Department Care Team (Late st Contact Info) Description 07/03/2024 3:00 PM EST Office Visit [facility] ADULT D[facility] [address] [place] [address] [place] 07/30/2024 1:15 PM EDT Office Visit [facility] [address] [place] [address] Dolores Serrano MD [address] [place] [address] Health Maintenance Due Date Last Done Comments Alcohol/Substance Use Screening 2003 HPV Vaccines (2 - 3-dose SCD M series) 09/02/2023 08/05/2023 Hepatitis B Vaccines (2 of 2 - CpG 2-dose series) 09/04/2023 08/07/2023 COVID-19 Vaccine (3 - 2023-2 5 season) 2024 05/03/2023, 11/16/2020 Influenza Vaccine (#1) 2024 06/05/2023 Depression Monitoring (PHQ-9) 03/21/2024, 09/19/2023 SDOH Screening 05/27/2024 05/27/2023 Dental Oral Exam 06/15/2024 12/13/2023 Dental Prophylaxis 07/06/2024 01/03/2024 Depression Screening 09/18/2024 09/19/2023, 09/19/2023 Dental X-Ray: Bitewings 12/13/2024 12/13/2023 Family Planning (PISQ) 01/13/2025 01/14/2024 Tobacco Screening 06/03/2025 06/03/2024 Cervical Cancer Screening 07/04/2026 HPV/Cotest 07/04/2026 07/04/2021 Pap Smear 07/04/2026 07/04/2021 Dental X-Ray: Full Mouth 12/13/2026 12/13/2023 DTaP/Tdap/Td Vaccines (2 - T d or Tdap) 08/04/2033 08/05/2023 Zoster Vaccines (1 of 2) 2041 RSV Patients and Patients Aged 60 years or older (1 - 1-dose 75+ series) 2066 HIV Screening Completed 03/09/2021 Pneumococcal Vaccine: Pediatrics (0 to 5 Years) and At-Risk Patients (6 to 49) Years) Completed 06/05/2023 Hepatitis C Screening Completed 08/06/2023 , 06/05/2023 HIB Vaccines Aged Out No longer eligi ble based on patient's age to complete this topic Hepatitis A Vaccines Aged Out No long er eligible based on patient's age to complete this topic IPV Vaccines Aged Out No longer eligi ble based on patient's age to complete this topic Meningococcal Vaccine Aged Out No henry lanette eligible based on patient's age to complete this topic RSV under 20 months Aged Out No longe r eligible based on patient's age to complete this topic Rotavirus Vaccines Aged Out No longer eligible based on patient's age to complete this topic Procedures Procedure Name Priority Date/Time Associated Diagnosis [...] 39 AM EST Cough in adult patient POCT URINALYSIS DIPSTICK Routine 06/03/2024 3:41 PM EST Stress incontinence POCT INFLUENZA B Routine 05/27/2024 5:28 PM EST Cough in adult POCT INFLUENZA A Routine 05/27/2024 5:28 PM EST Cough in adult POCT RAPID COVID ANTIGEN Routine 05/27/2024 5:28 PM EST Cough in adult Full PROPHYLAXIS - ADULT Routine 01/03/2024 2:00 PM EDT DIAGNOSTIC - DIAGNOSTIC IMAGING - INTRAORAL - COMPREHENSIVE SERIES OF RADIOGRAPHIC IMAGES Routine 12/13/2023 10:30 AM EDT COMPREHENSIVE ORAL EVALUATION - NEW OR ESTABLISHED PATIENT Routine 12/13/2023 10:30 AM EDT HEPATITIS C ANTIBODY Routine 08/06/2023 1:30 PM EDT Mitral valve stenosis, unspecified etiology THINPREP IMAGING PAP AND HPV MRNA E6/E7 WITH REFLEX TO HPV 16,18/45 Routine 07/04/2021 9:42 AM EST HIV 1/2 ANTIGEN/ANTIBODY, FOURTH GENERATION W/RFL Routine 03/09/2021 9:20 AM EDT from Last 3 Months or Most Recently Relevant to Health Maintenance Results * Influenza B (ID NOW Rapid Molecular) (06/30/2024 9:55 AM EST) [facility] Influenza B Negative Negative, Indeterminate [facility] Swab 06/30/2024 9:55 AM EST Siomara Burdick MD POINT OF CARE TEST ENTER/E DIT ORDERABLES Final Result Performing Organization Address [facility] Co de Phone Number [facility] [address] [place] [phone] * Influenza A (ID NOW Rapid Molecular) (06/30/2024 9:54 AM EST) [facility] Influenza A Negative Negative, Indeterminate [facility] Swab 06/30/2024 9:54 AM EST Siomara Burdick MD POINT OF CARE TEST ENTER/E DIT ORDERABLES Final Result Performing Organization Address [facility] de Phone Number [facility] [address] [place] [phone] * POCT Rapid COVID Ag (06/30/2024 9:39 AM EST) Only the most recent of2 resultswithin the time period is included. [facility] Rapid COVID Ag Negative Swab 06/30/2024 9:39 AM EST Siomara Burdick MD POINT OF CARE TEST ENTER/E DIT ORDERABLES Final Result * POCT rapid strep A manually resulted (06/30/2024 9:39 AM EST) [facility] Rapid Strep A Screen Negative Negative, None Detected Swab 06/30/2024 9:39 AM EST Siomara Burdick MD POINT OF CARE TEST ENTER/E DIT ORDERABLES Final Result * POCT Urinalysis (06/03/2024 3:41 PM EST) Pathologist [facility] Color, UA Yellow Clarity, UA Clear Glucose, UA Negative Bilirubin, UA Negative Ketones, UA Positive Comment:TRACE Spec Grav, UA 1.025 Blood, UA Negative Negative, None Detected pH, UA 6.5 Protein, UA Negative Urobilinogen, UA 0.2 Leukocytes, UA Trace Negative, Rare, Trace Nitrite, UA Negative Negative, None Detected Appearance, UA CLEAR QC Media Lot # [id number] Lot# Expiration Date 3,025 Urine 06/03/2024 3:41 PM EST [facility] POINT OF CARE TEST ENTER/EDIT ORDERABLES Final Result * POCT Influenza B manually resulted (05/27/2024 5:28 PM EST) [facility] Rapid Influenza B Ag Negative Negative, Indeterminate QC Media Lot # [id number] Lot# Expiration Date Swab 05/27/2024 5:28 PM EST Zoey Benjamin [facility] POINT OF CARE TEST ENTER/EDIT ORDERABLES Final Result * POCT Influenza A manually resulted (05/27/2024 5:28 PM EST) [facility] Rapid Influenza A Ag Negative Negative, Indeterminate QC Media Lot # [id number] Lot# Expiration Date Swab Nasopharyngeal structure / Unknown 05/27/2024 5:28 PM EST [facility] POINT OF CARE TEST ENTER/EDIT ORDERABLES Final Result * Hepatitis C Ab (08/06/2023 1:30 PM EDT) [facility] Hepatitis C Antibody Nonreactive Nonreactive [facility] Comment:Antibodies to HCV no t detected; does not exclude early acuteHCV infection. 08/06/2023 1:30 PM EDT 08/06/2023 1:35 PM EDT us Dolores Serrano MD LAB BLOOD ORDERABLES Final Result [facility] [address] [place] [phone] [phone] * THINPREP TIS PAP AND HPV mRNA E6/E7 WITH REFLEX TO HPV 16,18/45 (07/04/2021 9:42 AM EST) Clinical Information: None given [facility] COMMENT SEE COMMENT [facility] Comment: EXPLANATORY NOTE: ? The Pap is a screening test for cervical cancer. It is ?? not a diagnostic test and is subject to false negative ?? and false positive results. It is most reliable when a ?? satisfactory sample, regularly obtained, is submitted ?? with relevant clinical findings and history, and when ?? the Pap result is evaluated along with historic and ?? current clinical information. ?? COMMENT: This Pap test has been evaluated with computer assisted technology. [facility] [place]: SEE COMMENT [facility] Comment: MPG, CT(ASCP) CT screening location: [address] ??[id number] HPV nRNA E6/E7 Not Detected Not Detected [employer] Comment: Methodology: Corner Cutter Machine Operator-Mediated Amplification This assay detects E6/E7 viral messenger RNA (mRNA) from 14 high-risk HPV types (16,18,31,33,35,39,45,51,52,56,58,59,66,68). ? The analytical performance characteristics of this assay have been determined by [employer]. The modifications have not been cleared or approved by the FDA. This assay has been validated pursuant to the CLIA regulations and is used for clinical purposes. ?? For additional information, please refer to http://education.Backyard/faq/JKU104d7 (This link if provided for information/ educational purposes only.) Interpretation/Re sult: Negative for intraepithelial lesion or malignancy. [facility] LMP: 06/12/21 [facility] Prev. BX: NONE GIVEN [facility] Prev. PAP: NONE GIVEN [facility] SOURCE: None given [facility] Statement Of Adequacy: SEE COMMENT [facility] Comment: Satisfactory for evaluation. Endocervical/transformation zone component absent. 07/04/2021 9:42 AM EST Manuela Mitchell CNM LAB PATHOLOGY ORDERABLES Final Result Performing Organization Address [facility] Co de Phone Number [facility] [address] * HIV 1/2 ANTIGEN/ANTIBODY,FOURTH GENERATION W/RFL (03/09/2021 9:20 AM EDT) HIV-1/2 ANTIGEN AND ANTIBODIES, 4TH GENERATION W/ REFLEX NON-REACT SEFERINO NON-REACT SEFERINO [facility] Comment: HIV-1 antigen and HIV-1/HIV-2 antibodies were not detected. There is no laboratory evidence of HIV infection. ?? PLEASE NOTE: This information has been disclosed to you from records whose confidentiality may be protected by state law. ??If your state requires such protection, then the state law prohibits you from making any further disclosure of the information without the specific written consent of the person to whom it pertains, or as otherwise permitted by law. A general authorization for the release of medical or other information is NOT sufficient for this purpose. ? For additional information please refer to http://education.[employer]/faq/HGA718 (This link is being provided for informational/ educational purposes only.) ? The performance of this assay has not been clinically validated in patients less than 2 years old. ?? 03/09/2021 9:20 AM EDT us Dolores Serrano MD LAB BLOOD ORDERABLES Final Result Performing Organization Address [facility] de Phone Number [facility] [address] from Last 3 Months or Most Recently Relevant to Health [place] [address] [place] [facility] ST[facility] ADULT * Guarantor: JarvisMacy suazo Account Type Relation to Patient Date of Phone Billing Address Personal/Family Self [address] [place] Care Teams Stogy Maker Relationship Specialty Start Date End Date Dolores Serrano MD [address] [place], [place] [address] [place] [address] PCP - General Internal Medicine 01/30/21 Manny Mireles MD [address] [place] [address] [address] [place] [address] Cardiology 05/28/24
== END 2024-06-30 17:30 | disposition home or self-care (01) ==
LOC: HO.HHCLNP 17:29
PROVIDERS: Visit Provider Family Medicine
DX: J02.9 Acute pharyngitis, unspecified (principal)
CPT/HCPCS: 87070

== ENCOUNTER 2024-07-31 13:25 | Outpatient (REF) | payer MEDICAID, SELFPAY ==
[2024-07-31 14:49] LABS: MANUAL DIFF FLAG NO
[2024-07-31 14:55] LABS: Basophils Percent Auto 0.5 % (0-2); Eosinophils Absolute Auto 0.1 X10*3/uL (0.0-0.4); Eosinophils Percent Auto 0.8 % (0-4); Hematocrit 38.3 % (37.0-47.0); Hemoglobin 12.7 g/dl (12.0-16.0); Imm Gran Abs Auto 0.03 X10*3/uL (0.00-0.03); Imm Gran Pct Auto 0.3 % (0.0-0.4); Lymphocytes Absolute Auto 3.3 X10*3/uL (1.2-4.9); Mean Corpuscular HGB Conc 33.2 g/dl (31.0-35.0); Mean Corpuscular Hemoglobin 30.2 pg (27.0-33.0); Mean Corpuscular Volume 91.2 fL (80.0-98.0); Mean Platelet Volume 11.7 fL (9.4-12.3); Monocytes Absolute Auto 0.6 X10*3/uL (0.1-1.2); Monocytes Percent Auto 6.4 % (2-11); Neutrophils Absolute Auto 4.7 x10*3/uL (2.0-8.3); Platelet Count 183 X10*3/uL (160-400); Red Cell Distribution Width 13.6 % (11.0-16.0); White Blood Count 8.7 X10*3/uL (4.8-10.8)
--- OUTSIDE RECORDS SUMMARY | 2024-07-31 15:02 | XMS_ITS | Encounter Summary ---
Author Organization [facility] Address [address] [place] [address] Care Team Providers Care Bulker Name Role Phone Dolores Serrano MD Primary Care Provider [phone] Manny Mireles MD Unavailable Encounter Details Date Type Department Care Team (Latest Contact Info) Description 07/30/2024 Travel Social History Tobacco Use Types Packs/Day Years Used Date Smoking Tobacco: Never Smokeless Tobacco: Never Alcohol Use Standard Drinks/Week Comments Never 0 (1 standard drink = 0.6 oz pur e alcohol) Depression Answer Date Recorded Patient Health Questionnaire-9 Score 11 07/30/2024 Patient Health Questionnaire-9 Score 11 07/30/2024 Last PHQ-9: Questionnaire Data Not on file 0 07/30/2024 Housing Stability Answer Date Recorded What is your housing situation today? I have raymond reddy 07/23/[address] you li ve. Do you have problems with any of the following? None of the above 07/23/2024 Food Insecurity Answer Date Recorded Within the past 12 months, y ou worried that your food would run out before you got money to buy more: Never True 07/23/2024 Within the past 12 months,th e food you bought just didn't last and you didn't have enough money to get more: Never True 10/2024 Transportation Answer Date Recorded In the past 12 months, has l ack of transportation kept you from medical appts, meetings, work or from getting things needed for daily living? No 07/23/2024 Utilities Answer Date Recorded In the past 12 months, has t he electric, gas, oil or water company threatened to shut off services in your home? No 07/23/2024 Depression Answer Date Recorded Patient Health Questionnaire-2 Score 2 07/30/2024 Internet Access Answer Date Recorded Internet Access Q1 Yes 07/23/2024 Internet Access Q2 Not on file 07/23/2024 Comments No Sex and Gender Information Value Date Recorded Sex Assigned at Female 03/19/2022 10:38 AM EDT Legal Sex Female 10:38 AM EDT Gender Identity Female 03/19/2022 10:38 AM EDT Sexual Orientation Straight 03/19/2022 10 :38 AM EDT documented as of this encounter Plan of Treatment Upcoming Encounters Date Type Department Care Team ([facility] st Contact Info) Description 10/01/2024 11:30 AM EDT Office Visit [facility] [address] [place] [address] Dolores Serrano MD [address] [place] [address] documented as of this encounter Visit Diagnoses Not on filedocumented in this encounter Additional Health Concerns Assessment Noted Time PHQ-9 Depression Total Score: 11 025 2:57 PM EDT documented as of this encounter Care Teams Bulker Relationship Specialty Start Date End Date Dolores Serrano MD [address] [place] [address] PCP - General Internal Medicine 01/30/21 Manny Mireles MD [address] [place] [address] 3rd [place] [address] Cardiology 05/28/24 documented as of this encounter
--- OUTSIDE RECORDS SUMMARY | 2024-07-31 15:02 | XMS_ITS | Encounter Summary ---
Author Organization [facility] Address [address] [facility] [address]t [place] [address] Care Team Providers Care Tool And Die Assembler Name Role Phone Dolores Serrano MD Primary Care Provider [phone] Manny Mireles MD Unavailable Encounter Details Date Type Department Care Team ([facility] st Contact Info) Description 06/18/2023 Orders Only [facility] [address] [place] [address] Dolores Serrano MD [address] [place] [address] Pelvic varices (Primary Dx) Social History Tobacco [...] Care Team (Late st Contact Info) Description 10/01/2024 11:30 AM EDT Office Visit [facility] [address] [place] [address] Dolores Serrano MD [address] [place] [address] documented as of this encounter Visit Diagnoses Diagnosis Pelvic varices- Primary documented in this encounter Additional Health Concerns Assessment Noted Time PHQ-9 Depression Total Score: 10 024 11:28 AM EST documented as of this encounter Care Teams Tool And Die Assembler Relationship Specialty Start Date End Date Dolores Serrano MD [address] [place] [address] PCP - General Internal Medicine 01/30/21 Manny Mireles MD [address] [place] [address] 3rd [place] [address] Cardiology 05/28/24 documented as of this encounter
--- OUTSIDE RECORDS SUMMARY | 2024-07-31 15:02 | XMS_ITS | Encounter Summary ---
Author Organization [employer] Address [address] [facility] 7t [place] [address] Care Team Providers Care Proj Engineer Name Role Phone Dolores Serrano MD Primary Care Provider Manny Mireles MD Unavailable Encounter Details Date Type Department Care Team ([facility] st Contact Info) Description 07/30/2024 1:15 PM EDT Office Visit [facility] [address], [place] [phone] Dolores Serrano MD [address] [place] [address] Mitral valve stenosis, unspecified etiology (Primary Dx); Bloating; Annual physical exam; Anxiety Social History Tobacco Use Types Packs/Day Years [...] Sign Reading Time Taken Comments Blood Pressure 110/64 07/30/2024 4:29 PM EDT Pulse 91 07/30/2024 4:29 PM EDT Temperature 36.6 ??C (97.9 ??F) 07/30/2024 4:29 PM ED T Respiratory Rate 20 07/30/2024 4:29 PM EDT Oxygen Saturation 98% 07/30/2024 4:29 PM EDT Inhaled Oxygen Concentration - - Weight 53.1 kg (117 lb) 07/30/2024 4:29 PM EDT Height 154.9 cm (5' 1 ) 07/30/2024 4:29 PM EDT Body Mass Index 22.11 07/30/2024 4:29 PM EDT documented in this encounter Progress Notes * Dolores Serrano MD - 07/30/2024 1:15 PM EDT Subjective Patient ID: Macy Jarvis is a 34 y.o. female who presents for No chief complaint on file.. HPI Patient is here for annual physical exam. She denies any acute events since the last office visit but complains of change in her bowel habits. She goes to the bathroom 2 times a day and has loose bowel movements. No fever or associated other constitutional symptoms reported. Patient has history of mitral valve stenosis. Was evaluated by cardiology in June 2023. Has history of mitral valve surgery at the age of 22 in [facility]. She should be on low-dose aspirin to reduce her risk and also an antibiotic prophylaxis for prevention of endocarditis. 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 Patient also has history of depression. Has tried psychotherapy in the past but did not like the experience because she feels it made her more sad. Denies suicidal ideation or homicidal ideation She would consider psychotherapy but would like a medication that would not not make her sleepy because she has a 6-year-old child. Patient Active Problem List Diagnosis Anxiety Mitral stenosis Panic attacks Family problems Sore throat Current Outpatient Medications on File Prior to Visit Medication Sig Dispense Refill Acetaminophen 500 MG capsule Take 1 capsule (500 mg) by mouth every 8 (eight) hours if needed for moderate pain or fever. 30 capsule 0 amoxicillin (Amoxil) 500 MG capsule Take 4 tabs (2 grams) 1 hour prior to dental procedure 4 capsule 3 azithromycin (Zithromax) 250 MG tablet Take 2 tablets by mouth on day 1. Then 1 tablet per mouth for 4 days. 6 tablet 0 No current facility-administered medications on file prior to visit. Allergies Allergen Reactions Metronidazole Palpitations Bevacizumab-Bvzr [Bevacizumab] Review of Systems Constitutional: Negative for appetite change, chills and diaphoresis. Respiratory: Negative for cough, choking and shortness of breath. Gastrointestinal: Negative for anal bleeding and blood in stool. Endocrine: Negative for heat intolerance and polydipsia. Musculoskeletal: Negative for back pain and gait problem. Psychiatric/Behavioral: Negative for behavioral problems, confusion and decreased concentration. Objective BP 110/64 (BP Location: Left arm, Patient Position: Sitting, BP Cuff Size: Adult) Pulse 91 Temp97.9 ??F (36.6 ??C) (Oral) Resp 20 Ht 5' 1 (1.549 m) Wt 117 lb (53.1 kg) SpO2 98% BMI 22.11 kg/m?? Physical Exam Constitutional: General: She is not in acute distress. Appearance: Normal appearance. She is not ill-appearing, toxic-appearing or diaphoretic. HENT: Head: Normocephalic. Right Ear: Tympanic membrane normal. There is no impacted cerumen. Left Ear: Tympanic membrane normal. There is no impacted cerumen. Nose: Nose normal. No congestion or rhinorrhea. Mouth/Throat: Mouth: Mucous membranes are moist. Eyes: General: No scleral icterus. Right eye: No discharge. Left eye: No discharge. Pupils: Pupils are equal, round, and reactive to light. Cardiovascular: Rate and Rhythm: Normal rate and regular rhythm. Heart sounds: No murmur heard. No friction rub. No gallop. Pulmonary: Effort: Pulmonary effort is normal. No respiratory distress. Breath sounds: No stridor. No wheezing, rhonchi or rales. Chest: Chest wall: No tenderness. Abdominal: General: There is no distension. Palpations: Abdomen is soft. There is no mass. Tenderness: There is no abdominal tenderness. There is no right CVA tenderness or left CVA tenderness. Musculoskeletal: General: Normal range of motion. Cervical back: Normal range of motion. Neurological: General: No focal deficit present. Mental Status: She is alert and oriented to person, place, and time. Psychiatric: Mood and Affect: Mood normal. Assessment/Plan Diagnoses and all orders for this visit: Mitral valve stenosis, unspecified etiology Comments: To follow-up with cardiology as scheduled. Orders: - CBC auto differential; Future - Lipid Panel, Standard; Future - TSH W/Reflex to FT4; Future - Comprehensive Metabolic Panel; Future Bloating Comments: Low FODMAP diet recommended Follow-up in 2 months. Annual physical exam Comments: Normal exam Patient is to maintain a healthy and balanced diet. Anxiety Comments: Trial of Paxil. Call the office if interested in getting psychotherapy. Orders: - PARoxetine (Paxil) 10 MG tablet; Take 1 tablet (10 mg) by mouth in the morning. documented in this encounter Miscellaneous Notes * Patient Education Note - Dolores Serrano MD - 07/30/2024 6:12 PM EDT Images from the original note were not included. Patient Education Table of Contents Plan de alimentaci?n con bajo contenido de FODMAP (Low-FODMAP Eating Plan) To view videos and all your education online visit, [email or web address] or scan this QR code with your smartphone. Access to this content will in one year. Plan de alimentaci?n con bajo contenido de FODMAP Low-FODMAP Eating Plan FODMAP significa oligosac?ridos, disac?ridos, monosac?ridos y polioles fermentables. Son az?cares dif?ciles de digerir para algunas personas. Un plan de alimentaci?n con bajo contenido de FODMAP puede ayudar a algunas personas que tienen el s?ndrome de colon irritable (SCI) y ciertas enfermedades de los intestinos (intestinales) a controlar cathleen s?ntomas. Seguir chikis plan de alimentaci?n puede resultar complicado. Consulte con un especialista en dietas y nutrici?n (nutricionista) para dise?ar un plan de alimentaci?n con bajo contenido de FODMAP que sea adecuado para usted. Un nutricionista puede asegurarse de que consuma suficientes nutrientes con hcikis plan de alimentaci?n. Consejos para seguir chikis plan Leer las etiquetas de los alimentos Diana las etiquetas para detectar FODMAP ocultos, por ejemplo: ? Jarabe de mandie fructosa. ? Miel. ? Agave. ? Saborizantes de frutas naturales. ? [place] o cebolla en polvo. Elija alimentos con bajo contenido de FODMAP que contengan 3 o 4 gramos de fibra por porci?n. Consulte las etiquetas de los alimentos para conocer los lou?os de las porciones. Coma solo jaylin porci?n por vez para asegurarse de mantener bajos los niveles de FODMAP. De compras Compre con jaylin lista de alimentos recomendados para esta dieta y bryan un plan de comidas. Planificaci?n de las comidas Siga un plan de alimentaci?n con bajo contenido de FODMAP prudencio un m?ximo de 6 semanas, o seg?n le indique el m?dico o nutricionista. Para seguir el plan de alimentaci?n, bryan lo siguiente: 1. Elimine los alimentos con alto contenido de FODMAP de lopez dieta por completo. Seleccione s?lo alimentos bajos en FODMAP para comer. Lo carlitos?? prudencio 2 a 6 semanas. Vuelva a introducir los alimentos con alto contenido de FODMAP en lopez dieta gradualmente, de fatmata a la vez. En lopez mayor?a, la gente debe esperar unos d?as antes de introducir la siguiente comida con alto contenido de FODMAP en lopez plan de comidas. Lopez nutricionista puede recomendarle con qu?? rapidez deber?a volver a introducir los alimentos. Lleve un registro diario de qu?? y cu?nto come y mel. Anote cualquier s?ntoma que tenga despu?s decomer. Revise lopez registro diario con el nutricionista regularmente para identificar qu?? alimentos puede comer y qu?? alimentos debe evitar. Consejos generales Mena suficiente l?quido todos los d?as nick para mantener la orina de color amarillo p?lido. No consuma alimentos procesados. Con frecuencia, estos alimentos tienen az?car agregada y pueden tener un alto contenido de FODMAP. Evite la mayor?a de los productos l?cteos, los cereales integrales y los endulzantes. Consulte con un nutricionista para asegurarse de incluir suficiente fibra en lopez alimentaci?n. Evite los alimentos con alto contenido de FODMAP en las comidas para controlar los s?ntomas. Alimentos recomendados Frutas Bananas, naranjas, mandarinas, annie, victor manuel, ar?ndanos, frambuesas, fresas, uvas, jeanine?n, jeanine?n zeinab, kiwi, papaya, maracuy?? y pi?a. Cantidades limitadas de ar?ndanos rojos disecados, chips de banana y jacey rallado. Verduras Berenjena, calabac?n, pepino, pimientos, austyn?as verdes, brotes de soja, christina, r?cula, kale, acelga, espinaca, col berza, col china, calabaza amarilla, papa y tomate. Cantidades limitadas de ma?z, zanahoria y camote. La parte edd de los cebollines. Granos Cereales sin gluten, nick arroz, benny, shea sarraceno, quinua, ma?z, polenta y mijo. Pasta, monzon ycereal sin gluten. Fideos de arroz. Tortillas de ma?z. Edward y otras prote?philip Carne de res, cerdo, aves o pescado sin sazonar. Huevos. Tocino. Tofu (firme) y tempeh. Cantidades limitadas de ngoc secos y semillas, nick almendras, nueces, nueces de Ulis, pacanas, man?es, semillas de calabaza, semillas de ch?a y semillas de girasol. L?cteos Leche, yogur y k?fir sin lactosa. Queso reques?n y helado sin lactosa. Leches que no david de origenanimal, por ejemplo, de almendras, jacey, c???neha y arroz. Yogur no l?cteo. Cantidades limitadas de queso de cabra, brie, mozzarella, parmesano, suizo y otros quesos duros. Grasas y aceites Pastas para untar sin manteca. Aceites vegetales, nick el de bowers, de canola y de girasol. Condimentos y otros alimentos Endulzantes artificiales con nombres que no terminen en ?ol?, nick aspartamo, sacarina y estevia. Jarabe de patten, az?car barbara, az?car sin refinar, az?car zafar y melaza. Mayonesa, salsa de soja y tamari. [place], cilantro, perejil, serrano y tomillo frescos. Bebidas Agua y agua mineral. Refrescos endulzados con az?car. Marquita?as cantidades de jugo de naranjas o jugo de ar?ndanos rojos. T?? monserrat y edd. La mayor?a de los vinos secos. Caf?. Es posible que los productos que se enumeran m?s arriba no constituyan jaylin lista completa de los alimentos y las bebidas que puede cristina. Consulte a un nutricionista para obtener m?s informaci?n. Alimentos que deben evitarse Frutas Manzana, charla, sand?a, durazno, ciruela, cereza, damasco, gonzalez, gonzalez de Boysen, higo, nectarina y april, en forma fresca, disecada o en jugo. Aguacate. Verduras Ra?z de endivia, alcachofa, martinez?rrago, repollo, arvejas, repollitos de Bruselas, br?coli, guisantes, arvejas, hongos, apio y coliflor. Cebollas, ajo, puerros y la parte barbara de los cebollines. Granos Shea, incluidos el kamut, shea soledad y s?mola. Cebada y bulgur. Cusc?s. Cereales a base de shea. Fideos de shea, monzon, galletas saladas y pasteles. Edward y otras prote?philip Edward fritas o grasosas. Salchichas. Casta?as de caj?? y pistachos. Soja, frijoles en salsa de tomate, frijoles negros, garbanzos, porotos colorados, habas, porotos blancos, lentejas, frijoles pintos y arvejas partidas. L?cteos Leche, yogur, helado y queso blando. Crema y crema agria. Salsas a base de leche. Natillas. Rossi de leche. La leche de soja. Condimentos y otros alimentos Cualquier goma de mascar o caramelo sin az?car. Alimentos que contienen endulzantes artificiales tales nick el sorbitol, manitol, isomalt o xilitol. Alimentos que contienen miel, jarabe de ma?z de mandie fructosa o agave. Consom?, caldo de verduras, caldo de res y caldo de scott. [place] y cebolla en polvo. Condimentos hechos con cebolla, nick el hummus, chutney, pickles, salsa de pepinillos, aderezopara ensaladas y salsa. Extracto de tomate. Bebidas Bebidas a base de endivias. Sustitutos del caf?. T?? de manzanilla. T?? de hinojo. Vinos dulces o enriquecidos nick el oporto o el daija. Refrescos diet?ticos hechos con isomalt, manitol, maltitol, sorbitol o xilitol. Jugo de manzana, charla y april. Jugos con jarabe de ma?z de mandie fructosa. Es posible que los productos que se enumeran m?s arriba no constituyan jaylin lista completa de los alimentos y las bebidas que debe evitar. Consulte a un nutricionista para obtener m?s informaci?n. Resumen FODMAP significa oligosac?ridos, disac?ridos, monosac?ridos y polioles fermentables. Son az?cares dif?ciles de digerir para algunas personas. Un plan de alimentaci?n con bajo contenido de FODMAP es jaylin dieta a corto plazo que ayuda a aliviarlos s?ntomas de ciertas enfermedades intestinales. Generalmente, el plan de alimentaci?n dura hasta 6 semanas. A continuaci?n, los alimentos con alto contenido de FODMAP se reintroducen gradualmente y de a fatmata. [place] puede ayudarle a averiguar qu?? alimentos pueden estar causando los s?ntomas. Un plan de alimentaci?n con bajo contenido de FODMAP puede ser complicado. Es aconsejable consultara un nutricionista con experiencia en chikis tipo de plan. Esta informaci?n no tiene nick fin reemplazar el consejo del m?dico. Aseg?rese de hacerle al m?dicocualquier pregunta que tenga. Document Released: 2018-03-25 Document Updated: 2020-11-11 Document Reviewed: 2024-04-19 [employer] Patient Education ? 2024 [employer]. documented in this encounter Plan of Treatment Upcoming Encounters Date Type Department Care Team ([facility] Contact Info) Description 10/01/2024 11:30 AM EDT Office Visit [facility] [address] [place] [address] Dolores Serrano MD [address] [place] [address] Scheduled Orders Name Type Priority Associated Diagnoses Orde r Schedule Lipid Panel, Standard Lab Routine Mitral valve stenosis, unspecified etiology Expected: 07/30/2024 (Approximate), Expires: 07/30/2025 TSH W/Reflex to FT4 Lab Routine Mitral valve stenosis, unspecified etiology Expected: 07/30/2024 (Approximate), Expires: 07/30/2025 Comprehensive Metabolic Panel Lab Routine Mitral valve stenosis, unspecified etiology Expected: 07/30/2024 (Approximate), Expires: 07/30/2025 documented as of this encounter Procedures Procedure Name Priority Date/Time Associated Diagnosis Comments CBC WITH AUTO DIFFERENTIAL Routine 07/31/2024 1:27 PM EDT Mitral valve stenosis, unspecified etiology documented in this encounter Results * CBC auto differential (07/31/2024 1:27 PM EDT) White Blood Count 8.7 4.8 - 10.8 X10*3/uL [facility] Red Blood Count 4.20 4.20 - 5.50 X10*6/uL [facility] Hemoglobin 12.7 12.0 - 16.0 g/dl [facility] Hematocrit 38.3 37.0 - 47.0 % [facility] Mean Corpuscular Volume 91.2 80.0 - 98.0 fL [facility] Mean Corpuscular Hemoglobin 30.2 27.0 - 33.0 pg [facility] Mean Corpuscular HGB Conc 33.2 31.0 - 35.0 g/dl [facility] Red Cell Distribution Width 13.6 11.0 - 16.0 % [facility] Platelet Count 183 160 - 400 X10*3/uL [facility] Mean Platelet Volume 11.7 9.4 - 12.3 fL [facility] Neutrophils Percent Auto 54.0 45 - 73 % [facility] Imm Gran Pct Auto 0.3 0.0 - 0.4 % [facility] Lymphocytes Percent Auto 38.0 20 - 40 % [facility] Monocytes Percent Auto 6.4 2 - 11 % [facility] Eosinophils Percent Auto 0.8 0 - 4 % [facility] Basophils Percent Auto 0.5 0 - 2 % [facility] NRBC Pct Auto 0.0 0.0 - 0.2 /100WBC [facility] Neutrophils Absolute Auto 4.7 2.0 - 8.3 x10*3/uL [facility] Imm Gran Abs Auto 0.03 0.00 - 0.03 X10*3/uL [facility] Lymphocytes Absolute Auto 3.3 1.2 - 4.9 X10*3/uL [facility] Monocytes Absolute Auto 0.6 0.1 - 1.2 X10*3/uL [facility] Eosinophils Absolute Auto 0.1 0.0 - 0.4 X10*3/uL [facility] Basophils Absolute Auto 0.0 0.0 - 0.2 X10*3/uL [facility] NRBC Abs Auto 0.000 0.0 - 0.012 X10*3/uL [facility] Blood Venous blood specimen / Unknown 07/31/2024 1:27 PM EDT 07/31/2024 2:44 PM EDT Dolores Serrano MD LAB BLOOD ORDERABLES Final Result Performing Organization Address City/State/[facility] Co de Phone Number [facility] [address] [place] [address] [phone] documented in this encounter Visit Diagnoses Diagnosis Mitral valve stenosis, unspecified etiology- Primary Bloating Flatulence, eructation, and gas pain Annual physical exam Routine general medical examination at a health care facility Anxiety Anxiety state, unspecified documented in this encounter Additional Health Concerns Assessment Noted Time PHQ-9 Depression Total Score: 11 025 2:57 PM EDT documented as of this encounter Care Teams Proj Engineer Relationship Specialty Start Date End Date Dolores Serrano MD [address] [place] [id number] PCP - General Internal Medicine 01/30/21 Manny Mireles MD [address] [place] [address] Drive 3rd [place] [address] Cardiology 05/28/24 documented as of this encounter
--- OUTSIDE RECORDS SUMMARY | 2024-07-31 15:02 | XMS_ITS | Encounter Summary ---
Author Organization [employer] Address [address] [facility] 7 [place] [address] Care Team Providers Care Leader Writer Name Role Phone Dolores Serrano MD Primary Care Provider [phone] Manny Mireles MD Unavailable Reason for Visit * Reason Comments Care Coordination CHW outreach for SDO H housing search-LVM Encounter Details Date Type Department Care Team (Latest Contact Info) Description 07/23/2024 Patient Outreach [facility] [address] [place], [place] [phone] Dolores Serrano MD [address] [place] [address] Care Coordination (CHW outreach for SDOH housing search-LVM ) Social History Tobacco Use Types Packs/Day Years [...] Recorded Patient Health Questionnaire-2 Score 4 09/19/2023 Internet Access Answer Date Recorded Internet Access Q1 Yes 07/23/2024 Internet Access Q2 Not on file 07/23/2024 Comments No Sex and Gender Information Value Date Recorded Sex Assigned at Female 03/19/2022 10:38 AM EDT Legal Sex Female 10:38 AM EDT Gender Identity Female 03/19/2022 10:38 AM EDT Sexual Orientation Straight 03/19/2022 10 :38 AM EDT documented as of this encounter Progress Notes * Mesfin Villaseñor - 07/23/2024 12:11 PM EST CHW Mesfin Villaseñor, placed outbound call to patient for assistance with SDOH as a referral was placed by the provider. Patient had screened positive for the following SDOH insecurities. No answer atthis time. Patient's name and were not confirmed. CHW left detailed message and provided contact information requesting return call for assistance. Patient educated on extended clinic hours on Mondays through Wednesdays, and Walk-In Urgent Care Located in [facility]. Patient provided with after-hours line for [facility], , which offer night time triage service and option to transfer toon call provider if needed. documented in this encounter Plan of Treatment Upcoming Encounters Date Type Department Care Team ([facility] st Contact Info) Description 10/01/2024 11:30 AM EDT Office Visit [facility] [address] [place], [place] [phone] Dolores Serrano MD [address] [place], [place] [phone] documented as of this encounter Visit Diagnoses Not on filedocumented in this encounter Additional Health Concerns Assessment Noted Time PHQ-9 Depression Total Score: 17 024 9:55 AM EDT documented as of this encounter Care Teams Leader Writer Relationship Specialty Start Date End Date Dolores Serrano MD [address] [place] [id number] PCP - General Internal Medicine 01/30/21 Manny Mireles MD [address] [place] [address] 3rd [place] [address] Cardiology 05/28/24 documented as of this encounter
--- OUTSIDE RECORDS SUMMARY | 2024-07-31 15:02 | XMS_ITS | Encounter Summary ---
Author Organization [employer] [facility] Address [address] [facility] 7t [place] [address] Care Team Providers Care Clay Roaster Name Role Phone Dolores Serrano MD Primary Care Provider [phone] Manny Mireles MD Unavailable Encounter Details Date Type Department Care Team ([facility] st Contact Info) Description 07/31/2024 Population Health Risk Score [facility] (C[facility]) Department [address] [facility] [address] [place] [id number] Provider, Population Health Generic Social History Tobacco Use Types Packs/Day Years [...] Description 10/01/2024 11:30 AM EDT Office Visit [facility] MED & PEDS [address] [place] [address] Dolores Serrano MD [address] [place] [address] documented as of this encounter Visit Diagnoses Not on filedocumented in this encounter Additional Health Concerns Assessment Noted Time PHQ-9 Depression Total Score: 11 025 2:57 PM EDT documented as of this encounter Care Teams Clay Roaster Relationship Specialty Start Date End Date Dolores Serrano MD [address] [place] [address] PCP - General Internal Medicine 01/30/21 Manny Mireles MD [address] [place] [address] 3rd [place] [address] Cardiology 05/28/24 documented as of this encounter
--- OUTSIDE RECORDS SUMMARY | 2024-07-31 15:02 | XMS_ITS | Clinical Summary ---
Author Organization [facility] Address [address] [facility] 7[address] [place] [address] Care Team Providers Care Interdisciplinary Professor Name Role Phone Dolores Serrano MD Primary [...] for 4 days. 6 tablet 5 Active PARoxetine (Paxil) 10 MG tabletIndicatio ns:Anxiety Take 1 tablet (10 mg) by mouth in the morning. 30 tablet 11 5 07/31/19 26 Active Acetaminophen 500 MG capsuleIndicati ons:Sore throat Take 1 capsule (500 mg) by mouth every 8 (eight) hours if needed for moderate pain or fever. 30 capsule 5 07/31/19 25 Active Problems Problem Noted Date Diagnosed Date [...] intervention , [facility], Patient to engage in OP therapy , and Patient to reach out to [facility] as needed Family problems 09/17/2023 Assessment & [...] for Behavioral Health Integration Plan External OP BH therapy referral Patient Self Plan Patient to utilize skills provided in intervention , Patient to reach out to [facility] team as needed, Patient to engage in [...] for Behavioral Health Integration Plan External OP BH therapy referral Patient Self Plan Patient to utilize skills provided in intervention , Patient to reach out to [facility] team as needed, Patient to engage in OP BH therapy , and Patient to reach out to [facility] as needed Mitral stenosis 01/09/2023 Encounters Date Type Department Care Team Description 07/31/2024 Population Health Risk Score [facility] () Department [address] [place] [address] Provider, Population Health Generic 07/30/2024 1:15 PM EDT Office Visit [facility] [address] [place] [address] Dolores Serrano MD Mitral valve stenosis, unspecified etiology (Primary Dx); Bloating; Annual physical exam; Anxiety 07/30/2024 Travel 07/23/2024 Patient Outreach [facility] [address] [place] [address] Dolores Serrano MD Care Coordination (CHW outreach for SDOH housing search-LVM ) 07/23/2024 Patient Outreach [facility] [address] [place] [address] Dolores Serrano MD Pre-visit Planning (SDOH Positive, Tobacco screening negative. ) 06/30/2024 9:20 AM EST Office Visit [facility] [address] [place] [phone] Siomara Burdick MD Sore throat (Primary Dx); Cough in adult patient; Diarrhea, unspecified type 06/04/2024 Telephone [facility] MED[facility] [address] [place] [phone] NealTali FNP 06/03/2024 11:30 AM EST Office Visit [facility] [address] [place] [address] NealTali [facility] Stress incontinence (Primary Dx) 06/03/2024 Travel 06/01/2024 Telephone [facility] [address] [place] [address] Dolores Serrano MD triage pt 1 out of 2 05/27/2024 5:00 PM EST Office Visit [facility] [address] [address] Zoey Benjamin FNP Bronchitis (Primary Dx); Cough in adult from Last 3 Months Immunizations Name Administration [...] Mass Index 22.11 07/30/2024 4:29 PM EDT Plan of Treatment Upcoming Encounters Date Type Department Care Team (Late st Contact Info) Description 10/01/2024 11:30 AM EDT Office Visit [facility] [address] [place] [address] Dolores Serrano MD [address] [place] [address] Health Maintenance Due Date Last Done Comments HPV Vaccines (2 - 3-dose SCD M series) 09/02/2023 08/05/2023 Hepatitis B Vaccines (2 of 2 - CpG 2-dose series) 09/04/2023 08/07/2023 COVID-19 Vaccine (3 - 2023-2 5 season) 2024 05/03/2023, 11/16/2020 Influenza Vaccine (#1) 2024 06/05/2023 Dental Oral Exam 06/15/2024 12/13/2023 Dental Prophylaxis 07/06/2024 01/03/2024 Dental X-Ray: Bitewings 12/13/2024 12/13/2023 Family Planning (PISQ) 01/13/2025 01/14/2024 Depression Monitoring (PHQ-9) 01/30/2025, 07/30/2024 Alcohol/Substance Use Screening 07/30/2025 07/30/2024 Depression Screening 07/30/2025 07/30/2024, 07/30/2024 SDOH Screening 07/30/2025 07/30/2024 Tobacco Screening 07/30/2025 07/30/2024 Cervical Cancer Screening 07/04/2026 HPV/Cotest 07/04/2026 07/04/2021 [...] PM EDT Mitral valve stenosis, unspecified etiology POCT INFLUENZA B (ID NOW RAPID MOLECULAR) Routine 06/30/2024 9:55 AM EST Cough in adult patient POCT INFLUENZA A (ID NOW RAPID MOLECULAR) Routine 06/30/2024 9:54 AM EST Cough in adult patient CULTURE, THROAT Routine 06/30/2024 9:53 AM EST Sore throat POCT RAPID COVID ANTIGEN Routine 06/30/2024 9:39 [...] - ADULT Routine 01/03/2024 2:00 PM EDT INTRAORAL - COMPLETE SERIES OF RADIOGRAPHIC IMAGES Routine 12/13/2023 10:30 [...] Recently Relevant to Health Maintenance Results * CBC auto differential (07/31/2024 1:27 PM EDT) White Blood Count 8.7 4.8 - 10.8 X10*3/uL [facility] Red Blood Count 4.20 4.20 - 5.50 X10*6/uL [facility] Hemoglobin 12.7 12.0 - 16.0 g/dl [facility] Hematocrit 38.3 37.0 - 47.0 % [facility] Mean Corpuscular Volume 91.2 80.0 - 98.0 fL [facility] Mean Corpuscular Hemoglobin 30.2 27.0 - 33.0 pg [facility] Mean Corpuscular HGB Conc 33.2 31.0 - 35.0 g/dl [facility] Red Cell Distribution Width 13.6 11.0 - 16.0 % [facility] Platelet Count 183 160 - 400 X10*3/uL [facility] Mean Platelet Volume 11.7 9.4 - 12.3 fL [facility] Neutrophils Percent Auto 54.0 45 - 73 % [facility] Imm Gran Pct Auto 0.3 0.0 - 0.4 % [facility] Lymphocytes Percent Auto 38.0 20 - 40 % [facility] Monocytes Percent Auto 6.4 2 - 11 % [facility] Eosinophils Percent Auto 0.8 0 - 4 % [facility] Basophils Percent Auto 0.5 0 - 2 % [facility] NRBC Pct Auto 0.0 0.0 - 0.2 /100WBC [facility] Neutrophils Absolute Auto 4.7 2.0 - 8.3 x10*3/uL [facility] Imm Gran Abs Auto 0.03 0.00 - 0.03 X10*3/uL [facility] Lymphocytes Absolute Auto 3.3 1.2 - 4.9 X10*3/uL [facility] Monocytes Absolute Auto 0.6 0.1 - 1.2 X10*3/uL [facility] Eosinophils Absolute Auto 0.1 0.0 - 0.4 X10*3/uL [facility] Basophils Absolute Auto 0.0 0.0 - 0.2 X10*3/uL [facility] NRBC Abs Auto 0.000 0.0 - 0.012 X10*3/uL [facility] Blood Venous blood specimen / Unknown 07/31/2024 1:27 PM EDT 07/31/2024 2:44 PM EDT us Dolores Serrano MD LAB BLOOD ORDERABLES Final Result [facility] [address] [place] [address] [phone] * Influenza B (ID NOW Rapid Molecular) (06/30/2024 9:55 AM EST) Influenza B Negative Negative, Indeterminate [facility] Swab 06/30/2024 9:55 AM EST Siomara Burdick MD POINT OF CARE TEST ENTER/E DIT ORDERABLES Final Result Performing Organization Address City/[facility]/ZIP Co de Phone Number [facility] [address] [place] [phone] * Influenza A (ID NOW Rapid Molecular) (06/30/2024 9:54 AM EST) Influenza A Negative Negative, Indeterminate [facility] Swab 06/30/2024 9:54 AM EST Siomara Burdick MD POINT OF CARE TEST ENTER/E DIT ORDERABLES Final Result Performing Organization Address [facility] Co de Phone Number [facility] [address] [place] [phone] * Culture, Throat (06/30/2024 9:53 AM EST) Throat Structure of anterior portion of neck / Unknown 06/30/2024 9:53 AM EST 06/30/2024 5:30 PM EST Comment:Throat Narrative [facility] - 07/02/2024 9:04 AM EST Throat Culture No Group A Beta-hemolytic Streptococci isolated. Specimen Source: Throat Siomara Burdick MD LAB MICROBIOLOGY - GENERAL ORDERABLES Final Result Performing Organization Address [facility] Co de Phone Number [facility] [address] [place] [phone] * POCT Rapid COVID Ag (06/30/2024 9:39 AM EST) Only the most recent of2 resultswithin the time period is included. Rapid COVID Ag Negative Swab 06/30/2024 9:39 AM EST Siomara Burdick MD POINT OF CARE TEST ENTER/E DIT ORDERABLES Final Result * POCT rapid strep A manually resulted (06/30/2024 9:39 AM EST) [facility] Rapid Strep A Screen Negative Negative, None Detected Swab 06/30/2024 9:39 AM EST Result [facility] Siomara Burdick MD POINT OF CARE TEST ENTER/E DIT ORDERABLES Final Result * POCT Urinalysis (06/03/2024 3:41 PM EST) [facility] Color, UA Yellow Clarity, UA Clear Glucose, UA Negative Bilirubin, UA Negative Ketones, UA Positive Comment:TRACE Spec Grav, UA 1.025 Blood, UA Negative Negative, None Detected pH, UA 6.5 Protein, UA Negative Urobilinogen, UA 0.2 Leukocytes, UA Trace Negative, Rare, Trace Nitrite, UA Negative Negative, None Detected Appearance, UA CLEAR QC Media Lot # [id number] Lot# Expiration Date 025 Urine 06/03/2024 3:41 PM EST [facility] POINT OF CARE TEST ENTER/EDIT ORDERABLES Final Result * POCT Influenza B manually resulted (05/27/2024 5:28 PM EST) [facility] Rapid Influenza B Ag Negative Negative, Indeterminate QC Media Lot # [id number] Lot# Expiration Date Swab 05/27/2024 5:28 PM EST Result [facility] Zoey Benjamin [facility] POINT OF CARE TEST ENTER/EDIT ORDERABLES Final Result * POCT Influenza A manually resulted (05/27/2024 5:28 PM EST) [facility] Rapid Influenza A Ag Negative Negative, Indeterminate QC Media Lot # [id number] Lot# Expiration Date Swab Nasopharyngeal structure / Unknown 05/27/2024 5:28 PM EST Result [facility]ey [facility] POINT OF CARE TEST ENTER/EDIT ORDERABLES Final Result * Hepatitis C Ab (08/06/2023 1:30 PM EDT) Hepatitis C Antibody Nonreactive Nonreactive [facility] Comment:Antibodies to HCV no t detected; does not exclude early acuteHCV infection. 08/06/2023 1:30 PM EDT 08/06/2023 1:35 PM EDT us Dolores Serrano MD LAB BLOOD ORDERABLES Final Result [facility] [address] [place] [address] [phone] * THINPREP TIS PAP AND HPV mRNA E6/E7 WITH REFLEX TO HPV 16,18/45 (07/04/2021 9:42 AM EST) Clinical Information: None given [facility] COMMENT SEE COMMENT [facility] ON [...] has been evaluated with computer assisted technology. [facility] Supervisor Drying And Winding: SEE COMMENT [facility] Comment: MPG, CT(ASCP) CT screening location: [address] ??[phone] HPV nRNA E6/E7 Not Detected Not Detected [facility] Comment: Methodology: Radio Tester-Mediated Amplification This assay detects E6/E7 viral messenger RNA (mRNA) from 14 high-risk HPV types (16,18,31,33,35,39,45,51,52,56,58,59,66,68). ? The analytical performance characteristics of this assay have been determined by [employer]. The modifications have not been cleared or approved by the FDA. This assay has been validated pursuant to the CLIA regulations and is used for clinical purposes. ?? For additional information, please refer to http://education.Lockitron/faq/PLZ716w8 (This link if provided for information/ educational purposes only.) Interpretation/Re sult: Negative for intraepithelial lesion or malignancy. [facility] LMP: 06/12/21 [facility] Prev. BX: NONE GIVEN [facility] Prev. PAP: NONE GIVEN [facility] SOURCE: None given [facility] Statement Of Adequacy: SEE COMMENT [facility] Comment: Satisfactory for evaluation. Endocervical/transformation zone component absent. 07/04/2021 9:42 AM EST Manuela Mitchell CNM LAB PATHOLOGY ORDERABLES Final Result Performing Organization Address [facility] Co de Phone Number [facility] [address] * HIV 1/2 ANTIGEN/ANTIBODY,FOURTH GENERATION W/RFL (03/09/2021 9:20 AM EDT) HIV-1/2 ANTIGEN AND ANTIBODIES, 4TH GENERATION W/ REFLEX NON-REACT SEFERINO NON-REACT SEFERINO [facility] Comment: HIV-1 antigen and HIV-1/HIV-2 [...] ? For additional information please refer to http://education.MonkeyFind.Boost My [employer]ds/faq/MRD494 (This link is being provided for informational/ educational purposes only.) ? The performance of this assay has not been clinically validated in patients less than 2 years old. ?? 03/09/2021 9:20 AM EDT Dolores Serrano MD LAB BLOOD ORDERABLES Final Result Performing Organization Address [facility] Co de Phone Number [facility] [address] [place] [address] from Last 3 Months or Most Recently Relevant to Health Maintenance Insurance [place] [facility] MEDICAID STAND ADULT Care Teams Interdisciplinary Professor Relationship Specialty Start Date End Date Dolores Serrano MD [address] [place] [phone] PCP - General Internal Medicine 01/30/21 Manny Mireles MD [address] [place] [address] 3rd [place] [address] Cardiology 05/28/24
--- OUTSIDE RECORDS SUMMARY | 2024-07-31 15:02 | XMS_ITS | Encounter Summary ---
Author Organization [employer] Address [address] [facility] 7 [place] [address] Care Team Providers Care Art Psychotherapist Name Role Phone Dolores Serrano MD Primary Care Provider [phone] Manny Mireles MD Unavailable Reason for Visit * Reason Comments Pre-visit Planning SDOH Positive, Tobac co screening negative. Encounter Details Date Type Department Care Team ([facility] Contact Info) Description 07/23/2024 Patient Outreach [facility] [address] [place], [place] [phone] Dolores Serrano MD [address] [place] [address] Pre-visit Planning (SDOH Positive, Tobacco screening negative. ) Social History Tobacco Use Types Packs/Day [...] as of this encounter Progress Notes * [place] - 07/23/2024 11:06 AM EST LUDY Todd placed successful outbound call to patient for pre-visit planning. Patient name and confirmed. Patient confirms appt date and time, and has transportation arrangements. Biggest concern for appointment at this time is patient has been experiencing dry cough. Appropriate screenings completed in anticipation of appointment. SDOH positive, Patient needs assistance with housing and security. documented in this encounter Plan of Treatment Upcoming Encounters Date Type Department Care Team ([facility] st Contact Info) Description 10/01/2024 11:30 AM EDT Office Visit [facility] [address] [place] [address] Dolores Serrano MD [address] [place] [address] documented as of this encounter Visit Diagnoses Not on filedocumented in this encounter Additional Health Concerns Assessment Noted Time PHQ-9 Depression Total Score: 17 024 9:55 AM EDT documented as of this encounter Care Teams Art Psychotherapist Relationship Specialty Start Date End Date Dolores Serrano MD [address] [place] [phone] PCP - General Internal Medicine 01/30/21 Manny Mireles MD [address] [place] [address] 3rd [place] [address] Cardiology 05/28/24 documented as of this encounter
[2024-07-31 17:31] LABS: Alanine Aminotransferase 31 U/L (0-31); Alkaline Phosphatase 50 U/L (39-117); Anion Gap 11 (12-20); Aspartate Amino Transferase 17 U/L (5-31); Bilirubin Total 0.6 mg/dL (0.0-1.0); Blood Urea Nitrogen 14 mg/dL (9-16); Calcium 9.1 mg/dL (8.4-10.2); Carbon Dioxide 25 mmol/L (22-29); Chloride 108 mmol/L (96-108); Cholesterol 200 mg/dL (<200); Estimated Glomerular Filt Rate > 60; Glucose Random 107 mg/dL (60-115); HDL Cholesterol 65 mg/dL (>40); LDL Cholesterol Calculated 115 mg/dL (<100); Potassium 3.9 mmol/L (3.3-5.1); Sodium 140 mmol/L (135-145); TSH reflex Free T4 0.82 uIU/mL (0.32-4.0); Total Protein 7.4 g/dL (6.5-8.0); Triglycerides 100 mg/dL (<150)
== END 2024-07-31 13:26 | disposition home or self-care (01) ==
LOC: HO.CHCLDS 13:25
PROVIDERS: Visit Provider Internal Medicine
DX: I05.0 Rheumatic mitral stenosis (principal)
CPT/HCPCS: 36415; 80053; 80061; 84443; 85025

== ENCOUNTER 2024-08-28 09:55 | Outpatient (AMB) | payer MEDICAID, SELFPAY ==
[2024-08-28 09:58] VITALS: BP 120/70; PULSE 72; BMI 21.0
--- NOTE | 2024-08-28 09:58 | A.OFFVIS_ITS ---
Vital Signs 08/28/24 09:58 Height 5 ft 2 in Weight 114 lb 10.246 oz BMI 21.0 BP 120/70 Blood Pressure Location Lt brachial Position Sitting Pulse 72 Intake Visit Reasons: 1 yr f/up Intake Note: 1 year follow-up with ekg c/o chest pain Physiognomist Required: No Allergies No Known Allergies [No Known Allergies*] Allergy (Verified 08/07/23 12:59) Medication List - Last Reconciled 08/28/24 by Manny Mireles MD No Known Home Meds HPI Comments Details: Macy comes for follow-up. She has no new cardiac symptoms although continues to have symptoms of shortness of breath and chest discomfort when she lays down. She denies any leg edema or abdominal distension. Denies any exertional chest pain or shortness of breath. No lightheadedness, syncope. She surprisingly not on baby aspirin therapy as discussed last time. She our takes amoxicillin for SBE prophylaxis. [facility] Surgical History Status post mitral valve repair Hx of tonsillectomy History of heart surgery Family History Mother HTN (hypertension) Social History Alcohol intake: never Review of Systems Const Denies chills, Denies fatigue, Denies fever(s), Denies frequent falls, Denies weakness, Denies weight gain and Denies weight loss ENT Denies dizziness Card Denies chest pain, Denies leg edema, Denies lightheadedness, Denies palpitations, Denies dyspnea, Denies dyspnea on exertion, Denies orthopnea and Denies other (loss of consciousness) Resp Denies cough, Denies dyspnea and Denies dyspnea on exertion GI Denies hematochezia and Denies change in stool character Musc Denies abnormal gait, Denies muscle weakness, Denies numbness, Denies radiating pain into limb and Denies tingling Neuro Denies Abnormal speech present, Denies abnormal gait, Denies dizziness, Denies frequent falls, Denies numbness, Denies tingling and Denies weakness Endo Denies fatigue and Denies palpitations Physical Exam Vital Signs: Last Vital Signs Pulse 72 08/28/24 09:58 BP 120/70 08/28/24 09:58 BMI result Body Mass Index 21.0 Const General: cooperative, comfortable, no acute distress, alert, awake and Physically active Nutritional Appearance: thin Orientation/consciousness: patient oriented x3 Limitations: no limitations HEENT Head: Yes normocephalic and Yes atraumatic Chest Chest palpation & inspection: other (Well healed scar) Resp Effort & Inspection: normal respiratory effort Auscultation: clear to auscultation bilaterally Cardio Jugular venous distension: no JVD Palpation: normal PMI Rate: regular rate Rhythm: regular rhythm Heart sounds: S1 normal heart sound present, S2 normal heart sound present, no click, no gallops, no murmurs and no rubs Neuro General: patient oriented x3 Speech: No Abnormal speech present Office Procedures EKG Details: EKG shows normal sinus rhythm with normal EKG 80327-[id number], Complete Assessment & Plan Assessment & Plan (1) Status post mitral valve repair: Comment: At age 22 in [facility] [place], records not available although appears that patient had severe mitral regurgitation. Also seems like she had tricuspid valve repair at that time with a ring Code(s): Z98.890 - Other specified postprocedural states Category: Surgical Plan: Status post mitral valve repair for severe mitral regurgitation with mild iatrogenic mitral stenosis noted by echocardiogram. Would suggest repeat echocardiogram to assess for mitral valve function. Clinically appears to have symptoms of shortness of breath and chest discomfort needing Nancy, rule out acid reflux disease. Consider GI consultation. I have recommended to be on low-dose aspirin therapy given her abnormal mitral valve for neurologic protection. Also continue SBE prophylaxis as per ACC/aha guidelines. Avoid use of stimulants. Continue maintain activity level as tolerated. Will follow up in the clinic in 1 year's time, sooner p.r.n.. Thank you for allowing me to partake in her care Orders: Orders CA echo transthoracic complete Today Z98.890 - Other specified postprocedural states Medications: New aspirin (Ecotrin Low Strength) 81 mg PO DAILY 30 tabs 0RF amoxicillin 2,000 mg (4 x 500 mg) PO ONCE PRN 8 tabs 0RF Prior to dental work Coding Level of Care Code Est Pt Level 4 (36619) Complex EM visit Add On G2211 Diagnoses Status post mitral valve repair Z98.890 CPT Codes EKG - CPT: 58930-[id number], Complete ([id number])
--- OUTSIDE RECORDS SUMMARY | 2024-08-28 10:32 | XMS_ITS | Encounter Summary ---
Author Organization [employer] Address [address] [facility] 7t [place] [address] Care Team Providers Care Staff Nurse Anesthetist Name Role Phone Dolores Serrano MD Primary Care Provider Manny Mireles MD Unavailable Encounter Details Date Type Department Care Team ([facility] st Contact Info) Description 06/18/2023 Orders Only [facility] [address] [place] [address] Dolores Serrano MD [address] [place] [address] Pelvic varices (Primary Dx) Social History Tobacco [...] Description 10/01/2024 11:30 AM EDT Office Visit [facility] [address] [place] [address] Dolores Serrano MD [address] [place] [address] documented as of this encounter Visit Diagnoses Diagnosis Pelvic varices- Primary documented in this encounter Additional Health Concerns Assessment Noted Time PHQ-9 Depression Total Score: 10 024 11:28 AM EST documented as of this encounter Care Teams Staff Nurse Anesthetist Relationship Specialty Start Date End Date Dolores Serrano MD [address] [place] [address] PCP - General Internal Medicine 01/30/21 Manny Mireles MD [address] [place] [address] 3rd [place] [address] Cardiology 05/28/24 documented as of this encounter
--- OUTSIDE RECORDS SUMMARY | 2024-08-28 10:32 | XMS_ITS | Clinical Summary ---
Author Organization [employer] [facility] Address [address] [facility] 7t [place] [address] Care Team Providers Care Funeral Attendant Name Role Phone Dolores Serrano MD Primary [...] intervention , Patient [facility] team [facility] needed, Patient to engage in OP therapy , and Patient to reach out to [facility] as needed Family problems 09/17/2023 Assessment [...] intervention , Patient to reach out to [facility] team as needed, Patient to engage in [...] intervention , Patient to reach out to [facility] team as needed, Patient to engage in OP BH therapy , and Patient to reach out to [facility] as needed Mitral stenosis 01/09/2023 Encounters Date Type Department Care Team Description 08/19/2024 Orders Only [facility] CHC MED & PEDS [address] [place] [address] Dolores Serrano MD Mitral valve stenosis, unspecified etiology (Primary Dx) 08/18/2024 Telephone [facility] MEDICINE [address] [place] [address] Dolores Serrano MD Referral 07/31/2024 Population Health Risk Score Community [facility] () [address] [phone] Provider, Population Health Generic 07/30/2024 1:15 PM EDT Office Visit [facility] [address] [place] [address] Dolores Serrano MD Mitral valve stenosis, unspecified etiology (Primary Dx); Bloating; Annual physical exam; Anxiety 07/30/2024 Travel 07/23/2024 Patient Outreach [facility] [address] [place] [address] Dolores Serrano MD Care Coordination (CHW outreach for SDOH housing search-LVM ) 07/23/2024 Patient Outreach [facility] [address] [place] [address] Dolores Serrano MD Pre-visit Planning (SDOH Positive, Tobacco screening negative. ) 06/30/2024 9:20 AM EST Office Visit [facility] WALK-IN CENTER [address] [place] [address] Siomara Burdick MD Sore throat (Primary Dx); Cough in adult patient; Diarrhea, unspecified type 06/04/2024 Telephone [facility] MEDICINE [address] [place] [address] Tali Shelby FNP 06/03/2024 11:30 AM EST Office Visit [facility] [address] [place] [address] Tali Shelby FNP Stress incontinence (Primary Dx) 06/03/2024 Travel 06/01/2024 Telephone [facility] [address] [place] [address] Dolores Serrano MD triage pt 1 out of 2 from Last 3 Months Immunizations Name Administration [...] Description 10/01/2024 11:30 AM EDT Office Visit [facility] [address] [place] [address] Dolores Serrano MD [address] [place] [address] Health Maintenance Due Date Last Done Comments [...] Family Planning (PISQ) 01/13/2025 01/14/2024 Depression Monitoring 01/30/2025 07/30/2024 , 07/30/2024 Alcohol/Substance Use Screening 07/30/2025 07/30/2024 Depression [...] Procedure Name Priority Date/Time Associated Diagnosis Comments COMPREHENSIVE METABOLIC PANEL Routine 07/31/2024 1:27 PM EDT Mitral valve stenosis, unspecified etiology TSH W/REFLEX TO FT4 Routine 07/31/2024 1 :27 PM EDT Mitral valve stenosis, unspecified etiology LIPID PANEL, STANDARD Routine 07/31/2024 1:27 PM EDT Mitral valve stenosis, unspecified etiology CBC WITH AUTO DIFFERENTIAL Routine 07/31/2024 1:27 [...] Routine 06/03/2024 3:41 PM EST Stress incontinence Full PROPHYLAXIS - ADULT Routine 01/03/2024 2:00 [...] Recently Relevant to Health Maintenance Results * TSH W/Reflex to FT4 (07/31/2024 1:27 PM EDT) TSH reflex Free T4 0.82 0.32 - 4.0 uIU/mL [facility] Blood Venous blood specimen / Unknown 07/31/2024 1:27 PM EDT 07/31/2024 2:44 PM EDT us Dolores Serrano MD LAB BLOOD ORDERABLES Final Result [facility] [address] [place] [phone] * CBC auto differential (07/31/2024 1:27 PM EDT) White Blood Count 8.7 4.8 - 10.8 X10*3/uL [facility] Red Blood Count 4.20 4.20 - 5.50 X10*6/uL [facility] Hemoglobin 12.7 12.0 - 16.0 g/dl [facility] Hematocrit 38.3 37.0 - 47.0 % [facility] Mean Corpuscular Volume 91.2 80.0 - 98.0 fL [facility] Mean Corpuscular Hemoglobin 30.2 27.0 - 33.0 pg [facility] Mean Corpuscular HGB Conc 33.2 31.0 - 35.0 g/dl [facility] Red Cell Distribution Width 13.6 11.0 - 16.0 % [facility] Platelet Count 183 160 - 400 X10*3/uL [facility] Mean Platelet Volume 11.7 9.4 - 12.3 fL [facility] Neutrophils Percent Auto 54.0 45 - 73 % [facility] Imm Gran Pct Auto 0.3 0.0 - 0.4 % [facility] Lymphocytes Percent Auto 38.0 20 - 40 % [facility] Monocytes Percent Auto 6.4 2 - 11 % [facility] Eosinophils Percent Auto 0.8 0 - 4 % [facility] Basophils Percent Auto 0.5 0 - 2 % [facility] NRBC Pct Auto 0.0 0.0 - 0.2 /100WBC [facility] Neutrophils Absolute Auto 4.7 2.0 - 8.3 x10*3/uL [facility] Imm Gran Abs Auto 0.03 0.00 - 0.03 X10*3/uL [facility] Lymphocytes Absolute Auto 3.3 1.2 - 4.9 X10*3/uL [facility] Monocytes Absolute Auto 0.6 0.1 - 1.2 X10*3/uL [facility] Eosinophils Absolute Auto 0.1 0.0 - 0.4 X10*3/uL [facility] Basophils Absolute Auto 0.0 0.0 - 0.2 X10*3/uL [facility] NRBC Abs Auto 0.000 0.0 - 0.012 X10*3/uL [facility] Blood Venous blood specimen / Unknown 07/31/2024 1:27 PM EDT 07/31/2024 2:44 PM EDT Dolores Serrano MD LAB BLOOD ORDERABLES Final Result Performing Organization Address [facility] Co de Phone Number [facility] [address] [place] [phone] * (ABNORMAL) Lipid Panel, Standard (07/31/2024 1:27 PM EDT) Triglycerides 100 <150 mg/dL [facility] Comment:Desirable Triglyceri de: less than 150 mg/dLBorderline High Triglyceride 150-199 mg/dLHigh Triglyceride: 200-499 mg/dLVery High Triglyceride: greater than or equal to 5OO mg/dL Cholesterol 200(H) <200 mg/dL [facility] Comment:Desirable Cholestero l: less than 200 mg/dLBorderline High Cholesterol: 200-239 mg/dLHigh Cholesterol: greater than 239 mg/dL LDL Cholesterol Calculated 115(H) <100 mg/dL [facility] Comment:Desirable LDL: less than 100 mg/dLNear Optimal/Above Optimal LDL: 110- 129 mg/dLBorderline High LDL: 130-159 mg/dLHigh LDL: 160-189 mg/dLVery High LDL: greater than or equal to 190 mg/dL HDL Cholesterol 65 >40 mg/dL [facility] Comment:Desirable HDL: great er than 40 mg/dL Note: This HDL assay may give artificially low results in patients with liver disease. Blood Venous blood specimen / Unknown 07/31/2024 1:27 PM EDT 07/31/2024 2:44 PM EDT us Dolores Serrano MD LAB BLOOD ORDERABLES Final Result Performing Organization Address [facility]/ZIP Co de Phone Number [facility] [address] [place] [phone] * (ABNORMAL) Comprehensive Metabolic Panel (07/31/2024 1:27 PM EDT) Pathologist [facility] Sodium 140 135 - 145 mmol/L [facility] Potassium 3.9 3.3 - 5.1 mmol/L [facility] Chloride 108 96 - 108 mmol/L [facility] Carbon Dioxide 25 22 - 29 mmol/L [facility] Anion Gap 11(L) 12 - 20 [facility] Urea Nitrogen (BUN) 14 9 - 16 mg/dL [facility] Creatinine, Serum 0.61 0.5 - 1.4 mg/dL [facility] Estimated Glomerular Filt Rate >60 [facility] Comment:Chronic Kidney Disea se: Estimated GFR < 60 mL/min/1.01v6Rgmund Kidney Disease: Estimated GFR < 15 mL/min/1.73m2 Glucose 107 60 - 115 mg/dL [facility] Calcium 9.1 8.4 - 10.2 mg/dL [facility] Bilirubin, Total 0.6 0.0 - 1.0 mg/dL [facility] Aspartate Amino Transferase 17 5 - 31 U/L [facility] Alanine Aminotransferase 31 0 - 31 U/L [facility] Total Protein 7.4 6.5 - 8.0 g/dL [facility] Albumin Level 4.0 3.5 - 5.0 g/dL [facility] Alkaline Phosphatase 50 39 - 117 U/L [facility] Blood Venous blood specimen / Unknown 07/31/2024 1:27 PM EDT 07/31/2024 2:44 PM EDT us Dolores Serrano MD LAB BLOOD ORDERABLES Final Result [facility] [address] [place] [address] [phone] * Influenza B (ID NOW Rapid Molecular) (06/30/2024 9:55 AM EST) Pathologist [facility] Influenza B Negative Negative, Indeterminate [facility] Swab 06/30/2024 9:55 AM EST Siomara Burdick MD POINT OF CARE TEST ENTER/E DIT ORDERABLES Final Result Performing Organization Address [facility] Co de Phone Number [facility] [address] [place] [phone] * Influenza A (ID NOW Rapid Molecular) (06/30/2024 9:54 AM EST) Influenza A Negative Negative, Indeterminate [facility] Swab 06/30/2024 9:54 AM EST Siomara Burdick MD POINT OF CARE TEST ENTER/E DIT ORDERABLES Final Result Performing Organization Address [facility] Co de Phone Number [facility] [address] [place] [phone] * Culture, Throat (06/30/2024 9:53 AM EST) Throat Structure of anterior portion of neck / Unknown 06/30/2024 9:53 AM EST 06/30/2024 5:30 PM EST Comment:Throat Narrative [facility] - 07/02/2024 9:04 AM EST Throat Culture No Group A Beta-hemolytic Streptococci isolated. Specimen Source: Throat Siomara Burdick MD LAB MICROBIOLOGY - GENERAL ORDERABLES Final Result Performing Organization Address [facility] Co de Phone Number [facility] [address] [place] [phone] * POCT Rapid COVID Ag (06/30/2024 9:39 AM EST) Pathologist [facility] Rapid COVID Ag Negative Swab 06/30/2024 9:39 AM EST us Siomara Burdick MD POINT OF CARE TEST ENTER/E DIT ORDERABLES Final Result * POCT rapid strep A manually resulted (06/30/2024 9:39 AM EST) [facility] Rapid Strep A Screen Negative Negative, None Detected Swab 06/30/2024 9:39 AM EST Siomara Burdick MD POINT OF CARE TEST ENTER/E DIT ORDERABLES Final Result * POCT Urinalysis (06/03/2024 3:41 PM EST) [facility] Color, UA Yellow Clarity, UA Clear Glucose, UA Negative Bilirubin, UA Negative Ketones, UA Positive Comment:TRACE Spec Grav, UA 1.025 Blood, UA Negative Negative, None Detected pH, UA 6.5 Protein, UA Negative Urobilinogen, UA 0.2 Leukocytes, UA Trace Negative, Rare, Trace Nitrite, UA Negative Negative, None Detected Appearance, UA CLEAR QC Media Lot # [id number] Lot# Expiration Date Urine 06/03/2024 3:41 PM EST [facility] POINT OF CARE TEST ENTER/EDIT ORDERABLES Final Result * Hepatitis C Ab (08/06/2023 1:30 PM EDT) [facility] Hepatitis C Antibody Nonreactive Nonreactive [facility] Comment:Antibodies to HCV no t detected; does not exclude early acuteHCV infection. 08/06/2023 1:30 PM EDT 08/06/2023 1:35 PM EDT Dolores Serrano MD LAB BLOOD ORDERABLES Final Result [facility] [address] [place] [phone] * THINPREP TIS PAP AND HPV mRNA E6/E7 WITH REFLEX TO HPV 16,18/45 (07/04/2021 9:42 AM EST) [facility] Clinical Information: None given [facility] COMMENT SEE COMMENT [facility] [...] has been evaluated with computer assisted technology. [employer] [facility] Director Cloud Transformation: SEE COMMENT [facility] Comment: MPG, CT(ASCP) CT screening location: [address] ??[phone] HPV nRNA E6/E7 Not Detected Not Detected [employer] [facility] Comment: Methodology: Retail Solar Advisor-Mediated Amplification This assay detects E6/E7 viral messenger RNA (mRNA) from 14 high-risk HPV types (16,18,31,33,35,39,45,51,52,56,58,59,66,68). ? The analytical performance characteristics of this assay have been determined by [employer]. The modifications have not been cleared or approved by the FDA. This assay has been validated pursuant to the CLIA regulations and is used for clinical purposes. ?? For additional information, please refer to http://education.Sprout Route/faq/HXZ079z0 (This link if provided for information/ educational purposes only.) Interpretation/Re sult: Negative for intraepithelial lesion or malignancy. [employer] [facility] LMP: 06/12/21 [facility] Prev. BX: NONE GIVEN [facility] Prev. PAP: NONE GIVEN [facility] SOURCE: None given [facility] Statement Of Adequacy: SEE COMMENT [facility] Comment: Satisfactory for evaluation. Endocervical/transformation zone component absent. 07/04/2021 9:42 AM EST Manuela Mitchell CNM LAB PATHOLOGY ORDERABLES Final Result [employer] [address] * HIV 1/2 ANTIGEN/ANTIBODY,FOURTH GENERATION W/RFL (03/09/2021 9:20 AM EDT) HIV-1/2 ANTIGEN AND ANTIBODIES, 4TH GENERATION W/ REFLEX NON-REACT SEFERINO NON-REACT SEFERINO [facility] Comment: HIV-1 antigen and [...] ? For additional information please refer to http://education.Sprout Route/faq/EJE519 (This link is being provided for informational/ educational purposes only.) ? The performance of this assay has not been clinically validated in patients less than 2 years old. ?? 03/09/2021 9:20 AM EDT us Dolores Serrano MD LAB BLOOD ORDERABLES Final Result [facility] [address] from Last 3 Months or Most Recently Relevant to Health Maintenance Insurance [facility] C3 [place] ST[place] ADULT Care Teams Funeral Attendant Relationship Specialty Start Date End Date Dolores Serrano MD [address] [place] [address] [place] [address] PCP - General Internal Medicine 01/30/21 Manny Mireles MD [address] [place] [address] 3rd [place] [address] Cardiology 05/28/24
--- OUTSIDE RECORDS SUMMARY | 2024-08-28 10:32 | XMS_ITS | Encounter Summary ---
Author Organization [employer] Address [address] [facility] 7t [place] [address] Care Team Providers Care Lath Hand Name Role Phone Dolores Serrano MD Primary Care Provider [phone] Manny Mireles MD Unavailable Reason for Visit * Reason Onset Date Comments Referral 08/18/2024 Encounter Details Date Type Department Care Team ([facility] st Contact Info) Description 08/18/2024 Telephone [facility] MEDICINE [address] [place] [address] Dolores Serrano MD [address] [place], [place] [phone] Referral Social History Tobacco Use Types Packs/Day Years [...] encounter Miscellaneous Notes * Telephone Encounter - Marisa Sagastume - 08/18/2024 3:19 PM EDT Tc from pt requesting referral for Change Management Lead. (Reason: Pt states it's for the same reason, states she's supposed to visit it annually) documented in this encounter Plan of Treatment Upcoming Encounters Date Type Department Care Team ([facility] st Contact Info) Description 10/01/2024 11:30 AM EDT Office Visit [facility] MED & PEDS [address] [place] [address] Dolores Serrano MD [address] [place] [address] documented as of this encounter Visit Diagnoses Not on filedocumented in this encounter Additional Health Concerns Assessment Noted Time PHQ-9 Depression Total Score: 11 025 2:57 PM EDT documented as of this encounter Care Teams Lath Hand Relationship Specialty Start Date End Date Dolores Serrano MD [address] [place] [address] PCP - General Internal Medicine 01/30/21 Manny Mireles MD [address] 3rd [place] [address] Cardiology 05/28/24 documented as of this encounter
--- OUTSIDE RECORDS SUMMARY | 2024-08-28 10:32 | XMS_ITS | Encounter Summary ---
Author Organization [employer] [facility] Address [address] [facility] [address] [facility] [place] [address] Care Team Providers Care Ware Carrier Name Role Phone Dolores Serrano MD Primary Care Provider [phone] Manny Mireles MD Unavailable Reason for Referral * Consultation (Routine) - Closed Specialty Diagnoses / Procedures Referred By Contac t Referred To Contact Cardiology Diagnoses Mitral valve stenosis, unspecified etiology Dolores Serrano MD [address] [place] [address] Phone: tel: fax: Manny Mireles MD [address] [address] Phone: tel: fax: Referral ID Status Reason Start Date Expiration Date V isits Requested Visits Authorized [id number] Closed Specialty Services Required 08/19/2024 08/19/2025 1 1 Encounter Details Date Type Department Care Team (Late st Contact Info) Description 08/19/2024 Orders Only [facility] CHC MED & PEDS [address] [place] [address] Dolores Serrano MD [address] [place], [place] [phone] Mitral valve stenosis, unspecified etiology (Primary Dx) Social History Tobacco Use Types [...] Description 10/01/2024 11:30 AM EDT Office Visit [facility] MED & PEDS [address] [place] [address] Dolores Serrano MD [address] [place] [address] Scheduled Referrals Name Type Priority Associated Diagnoses Orde r Schedule Referral to Cardiology Outpatient Referral Routine Mitral valve stenosis, unspecified etiology Expected: 08/19/2024 (Approximate), Expires: 08/19/2025 documented as of this encounter Visit Diagnoses Diagnosis Mitral valve stenosis, unspecified etiology- Primary documented in this encounter Additional Health Concerns Assessment Noted Time PHQ-9 Depression Total Score: 11 025 2:57 PM EDT documented as of this encounter Care Teams Ware Carrier Relationship Specialty Start Date End Date Dolores Serrano MD [address] [place] [phone] PCP - General Internal Medicine 01/30/21 Manny Mireles MD [address] [place] [address] 3rd [place] [address] Cardiology 05/28/24 documented as of this encounter
== END 2024-08-28 10:18 | disposition home or self-care (01) ==
LOC: HO.HCS 09:56
PROVIDERS: PCP Internal Medicine; Visit Provider Internal Medicine Cardiovascular Disease
DX: Z98.890 Other specified postprocedural states (principal)
CPT/HCPCS: 93010; 99214

== ENCOUNTER → 2024-08-28 09:55 | Outpatient (BNVA) | payer MEDICAID, SELFPAY | PROVIDERS: PCP Internal Medicine; Visit Provider Internal Medicine Cardiovascular Disease | DX: Z98.890 Other specified postprocedural states (principal) | CPT/HCPCS: 93005; 99212 ==

== ENCOUNTER 2024-10-22 11:57 | Outpatient (REF) | payer MEDICAID, SELFPAY ==
--- OUTSIDE RECORDS SUMMARY | 2024-10-22 14:07 | XMS_ITS | Encounter Summary ---
Author Organization [employer] Address [address] [facility] 7 [place] [address] Care Team Providers Care Dx Board Operator Name Role Phone Dolores Serrano MD Primary Care Provider [phone] Manny Mireles MD Unavailable Encounter Details Date Type Department Care Team ([facility] st Contact Info) Description 06/18/2023 Orders Only [facility] MED & PEDS [address] [place] [address] Dolores Serrano MD [address] [place] [address] Pelvic varices (Primary Dx) Social History Tobacco [...] Care Team (Late st Contact Info) Description 11/12/2024 10:30 AM EDT Office Visit [facility] [address] [place] [address] Juan Aguero [address] [place] [address] 03/11/2025 10:00 AM EDT Office Visit [facility] [address] [place] [address] Love Scott documented as of this encounter Visit Diagnoses Diagnosis Pelvic varices- Primary documented in this encounter Additional Health Concerns Assessment Noted Time PHQ-9 Depression Total Score: 10 024 11:28 AM EST documented as of this encounter Care Teams Dx Board Operator Relationship Specialty Start Date End Date Dolores Serrano MD [address] [place] [address] PCP - General Internal Medicine 01/30/21 Manny Mireles MD [address] [place] [address] 3rd [place] [address] Cardiology 05/28/24 documented as of this encounter
[2024-10-22 17:27] LABS: Bacterial Vaginosis PCR NEGATIVE (Negative); Candida Group PCR NOT DETECTED (Not Detect); Candida glab krusei PCR NOT DETECTED (Not Detect); Trichomonas vaginalis PCR NOT DETECTED (Not Detect)
== END 2024-10-22 11:58 | disposition home or self-care (01) ==
LOC: HO.CHCLDS 11:57
PROVIDERS: Visit Provider Student in an Organized Health Care Education/Training Program
DX: N76.0 Acute vaginitis (principal)
CPT/HCPCS: 81515

== ENCOUNTER 2025-02-17 09:26 | Outpatient (REF) | payer MEDICAID, SELFPAY ==
--- OUTSIDE RECORDS SUMMARY | 2025-02-17 09:00 | XMS_ITS | Encounter Summary ---
Author Organization [employer] Address [address] [place] [address] 7 [place] [address] Care Team Providers Care Gauge And Weigh Machine Adjuster Name Role Phone Dolores Serrano MD Primary Care Provider Manny Mireles MD Unavailable Reason for Referral * Consultation (Urgent) - Pending Review Specialty Diagnoses / Procedures Referred By Janine cortez Referred To Contact Cardiology Diagnoses Palpitations Gosia Denise MD [address] [place] [address] Phone: tel: fax: Referral ID Status Reason Start Date Expiration Date Visits Requested Visits Authorized [id number] Pending Review Specialty Services Required 02/17/2025 02/17/2026 1 1 Encounter Details Date Type Department Care Team (Late st Contact Info) Description 02/17/2025 9:00 AM EDT Office Visit [facility] MED & PEDS [address] [place] [address] Gosia Denise MD [address] [place] [address] Palpitations (Primary Dx) Social History Tobacco Use Types [...] Sign Reading Time Taken Comments Blood Pressure 113/67 02/17/2025 9:01 AM EDT Pulse 70 02/17/2025 9:01 AM EDT Temperature 36.2 C (97.2 F) 02/17/2025 9:01 AM EDT Respiratory Rate 20 02/17/2025 9:01 AM EDT Oxygen Saturation 99% 02/17/2025 9:01 AM EDT Inhaled Oxygen Concentration - - Weight 55.1 kg (121 lb 6.4 oz) 02/17/2025 9:01 A M EDT Height 154 cm (5' 0.63 ) 02/17/2025 9:01 AM EDT Body Mass Index 23.22 02/17/2025 9:01 AM EDT documented in this encounter Progress Notes * Gosia Denise MD - 02/17/2025 9:00 AM EDT Subjective Patient ID: Macy Jarvis is a 34 y.o. female who presents for No chief complaint on file.. Palpitations This is a recurrent problem. The current episode started more than 1 month ago. The problem occurs intermittently. The problem has been gradually worsening. Pertinent negatives include no chest pain,malaise/fatigue or shortness of breath. She has tried nothing for the symptoms. Review of Systems Constitutional: Negative. Negative for malaise/fatigue. Respiratory: Negative. Negative for shortness of breath. Cardiovascular: Positive for palpitations. Negative for chest pain. Gastrointestinal: Negative. Genitourinary: Negative. Musculoskeletal: Negative for neck pain. Neurological: Negative for headaches. Objective Physical Exam Constitutional: Appearance: Normal appearance. Cardiovascular: Rate and Rhythm: Normal rate and regular rhythm. Pulses: Normal pulses. Heart sounds: Normal heart sounds. Pulmonary: Effort: Pulmonary effort is normal. Abdominal: General: Abdomen is flat. Neurological: Mental Status: She is alert. Assessment/Plan Diagnoses and all orders for this visit: Palpitations Comments: Labs ordered New Referral for placed Advised to avoid caffiene and related products Orders: - Basic Metabolic Panel; Future - TSH with Reflex to Free T4; Future - CBC auto differential; Future - Referral to Cardiology; Future documented in this encounter Plan of Treatment Upcoming Encounters Date Type Department Care Team (Late st Contact Info) Description 02/23/2025 9:00 AM EDT Office Visit [facility] ADULT DENTAL [address] [place] [address] Juan Aguero [address] [place] [address] Scheduled Orders Name Type Priority Associated Diagnoses Orde r Schedule Basic Metabolic Panel Lab Routine Palpitations Expected: 02/17/2025 (Approximate), Expires: 02/17/2026 TSH with Reflex to Free T4 Lab Routine Palpitations Expected: 02/17/2025 (Approximate), Expires: 02/17/2026 CBC auto differential Lab Routine Palpitations Expected: 02/17/2025 (Approximate), Expires: 02/17/2026 Scheduled Referrals Name Type Priority Associated Diagnoses Order Schedule Referral to Cardiology Outpatient Referral Urgent Palpitations Expected: 02/17/2025 (Approximate), Expires: 02/17/2026 documented as of this encounter Visit Diagnoses Diagnosis Palpitations- Primary documented in this encounter Additional Health Concerns Assessment Noted Time PHQ-9 Depression Total Score: 11 025 2:57 PM EDT documented as of this encounter Care Teams Gauge And Weigh Machine Adjuster Relationship Specialty Start Date End Date Dolores Serrano MD [address] [place] [id number] PCP - General Internal Medicine 01/30/21 Manny Mireles MD [address] [place] [address] 3rd [place] [address] Cardiology 05/28/24 documented as of this encounter
--- OUTSIDE RECORDS SUMMARY | 2025-02-17 10:16 | XMS_ITS | Encounter Summary ---
Author Organization [employer] Address [address] [facility] 7t [place] [address] Care Team Providers Care Movable Bulkhead Installer Name Role Phone Dolores Serrano MD Primary Care Provider Manny Mireles MD Unavailable Encounter Details Date Type Department Care Team ([facility] st Contact Info) Description 11/04/2024 Orders Only [facility] CHC MED & PEDS [address] [place] [address] Dolores Serrano MD [address] [place] [address] Strain of neck muscle, initial encounter (Primary Dx) Social History Tobacco Use Types [...] ([facility] st Contact Info) Description 02/23/2025 9:00 AM EDT Office Visit [facility] ADULT DENTAL [address] [place] [address] Juan Aguero 505 [place] [address] documented as of this encounter Visit Diagnoses Diagnosis Strain of neck muscle, initial encounter- Primary documented in this encounter Additional Health Concerns Assessment Noted Time PHQ-9 Depression Total Score: 11 025 2:57 PM EDT documented as of this encounter Care Teams Movable Bulkhead Installer Relationship Specialty Start Date End Date Dolores Serrano MD [address] [place] [address] PCP - General Internal Medicine 01/30/21 Manny Mireles MD [address] [place] [address] Drive 3rd [place] [address] Cardiology 05/28/24 documented as of this encounter
--- OUTSIDE RECORDS SUMMARY | 2025-02-17 10:16 | XMS_ITS | Clinical Summary ---
Author Organization [employer] Address [address] [facility] 7t [place] [address] Care Team Providers Care Powerhouse Operator Name Role Phone Dolores Serrano MD Primary Care Provider Manny Mireles MD Unavailable Allergies Active Allergy Reactions Criticality Noted Date Comments Bevacizumab 01/08/2023 Metronidazole Palpitations Medium 01/22/2024 Medications * This document contains information received from the source organization and may not represent a complete record from that organization. Diclofenac Sodium 1 % gelIndications :Strain of neck muscle, initial encounter To apply to the affected area 3 times a day 100 g 11/04/19 25 Active ibuprofen 600 MG tabletIndicati ons:Strain of neck muscle, initial encounter Take 1 tablet (600 mg) by mouth every 8 (eight) hours if needed for mild pain for up to 12 doses. 12 tablet 11/05/19 25 Active Rebecca 3-0.02 MG tablet TAKE 1 TABLET BY MOUTH EVERY DAY 84 tablet 02/17/20 25 Active amoxicillin (Amoxil) 500 MG capsule Take 4 tabs (2 grams) 1 hour prior to dental procedure 4 capsule 3 09/03/19 25 025 Discontinued amoxicillin (Amoxil) 500 MG capsule Take 4 tabs (2 grams) 1 hour prior to dental procedure 4 capsule 3 10/23/19 25 025 Discontinued methocarbamol (Robaxin) 500 MG tabletIndicati ons:Strain of neck muscle, initial encounter Take 1 tablet (500 mg) by mouth every 6 (six) hours for 10 days. 40 tablet 11/04/19 25 025 Discontinued amoxicillin (Amoxil) 500 MG capsule Take 4 tabs (2 grams) 1 hour prior to dental procedure 4 capsule 3 06/ 025 Discontinued drospirenone-e thinyl estradiol (Roberta Browning) 3-0.02 MG tablet Take 1 tablet by mouth Once per day. 28 tablet 2 11/28/19 025 Discontinued Active Problems Problem Noted Date Diagnosed Date [...] intervention , [facility], Patient to engage in OP therapy , and Patient to reach out to [facility] as needed Family problems 09/17/2023 Assessment & [...] intervention , [facility], Patient to engage [...] intervention , Patient to reach out to [facility] team as needed, Patient to engage in OP therapy , and Patient to reach out to [facility] as needed Mitral stenosis 01/09/2023 Encounters Date Type Department Care Team Description 02/17/2025 9:00 AM EDT Office Visit [facility] MED & PEDS [address] [place] [address] Gosia Denise MD Palpitations (Primary Dx) 02/17/2025 Travel 02/16/2025 Telephone [facility] [address] [place] [address] Dolores Serrano MD Nurse Triage 02/16/2025 Telephone [facility] MEDICINE [address] [place] [phone] Dolores Serrano MD 02/16/2025 Refill [facility] [address] [place] [address] Gosia Denise MD 12/14/2024 Orders Only [facility] [address] [place] [address] Dolores Serrano MD Missed period (Primary Dx) 12/14/2024 Telephone [facility] [address] [place] [address] Dolores Serrano MD Nurse Triage 12/08/2024 Telephone [facility] [address] [place] [address] Dolores Serrano MD Lab Orders 11/27/2024 2:20 PM EDT Office Visit [facility] [address] [place] [address] Gosia Denise MD Encounter for contraceptive management, unspecified type (Primary Dx) 11/27/2024 Travel 11/26/2024 Telephone [facility] [address] [place] [address] Dolores Serrano MD Medication Question 11/18/2024 Telephone [facility] MED[facility] [address] [place] [address] Dolores Serrano MD Nurse Triage from Last 3 Months Immunizations Immunization Administration Dates Next Due HPV 9-Valent 08/05/2023 [...] Mass Index 23.22 02/17/2025 9:01 AM EDT Plan of Treatment Upcoming Encounters Date Type Department Care Team ([facility] st Contact Info) Description 02/23/2025 9:00 AM EDT Office Visit [facility] ADULT DENTAL [address] [place] [address] Juan Aguero [address] [place] [address] Health Maintenance Due Date Last Done Comments Family Planning (PISQ) 2006 HPV Vaccines (2 - 3-dose series) 09/02/2023 08/05/2023 Hepatitis B Vaccines (2 of 2 - CpG 2-dose series) 09/04/2023 08/07/2023 Dental X-Ray: Bitewings 12/13/2024 12/13/2023 COVID-19 Vaccine (3 - 2024-2 6 season) 2025 05/03/2023, 11/16/2020 Influenza Vaccine (#1) 2025 06/05/2023 Depression Monitoring 01/30/2025 07/30/2024 , 07/30/2024 Dental Oral Exam 03/06/2025 09/03/2024, 12/13/2023 Dental Prophylaxis 03/06/2025 09/03/2024, 01/03/2024 Alcohol/Substance Use Screening 07/30/2025 07/30/2024 SDOH Screening 07/30/2025 07/30/2024 Disability Screening 10/13/2025 10/13/2024 Tobacco Screening 11/03/2025 11/03/2024 Cervical Cancer Screening 07/04/2026 HPV/Cotest 07/04/2026 07/04/2021 [...] Years) and At-Risk Patients (6 to 49) Years Completed 06/05/2023 Hepatitis C Screening Completed 08/06/2023 , 06/05/2023 HIB Vaccines Aged Out No longer eligi ble based on patient's age to complete this topic Hepatitis A Vaccines Aged Out No long er eligible based on patient's age to complete this topic IPV Vaccines Aged Out No longer eligi ble based on patient's age to complete this topic Meningococcal B Vaccine Aged Out No l onger eligible based on patient's age to complete [...] Name Priority Date/Time Associated Diagnosis Comments POCT , URINE Routine 11/27/2024 2:42 PM EDT Encounter for contraceptive management, unspecified type PROPHYLAXIS - ADULT Routine 09/03/2024 3 :00 PM EDT PERIODIC ORAL EVALUATION - ESTABLISHED PATIENT Routine 09/03/2024 3:00 PM EDT INTRAORAL - COMPLETE SERIES OF RADIOGRAPHIC IMAGES Routine 12/13/2023 10:30 AM EDT HEPATITIS C ANTIBODY Routine 08/06/2023 1:30 PM EDT Mitral valve stenosis, unspecified etiology THINPREP IMAGING PAP AND HPV MRNA E6/E7 WITH REFLEX TO HPV 16,18/45 Routine 07/04/2021 9:42 AM EST HIV 1/2 ANTIGEN/ANTIBODY, FOURTH GENERATION W/RFL Routine 03/09/2021 9:20 AM EDT from Last 3 Months or Most Recently Relevant to Health Maintenance Results * POCT Urine (11/27/2024 2:42 PM EDT) Pathologist [facility] Preg Test, Ur Negative Negative, Indeterminate, None Detected, Invalid, Specimen unsatisfactory for evaluation, Weakly Positive, 2+ QC Media Lot # [id number] Lot# Expiration Date [id number] Urine 11/27/2024 2:42 PM EDT Gosia Denise MD POINT OF CARE TEST ENTER/EDIT OR DERABLES Final Result * Hepatitis C Ab (08/06/2023 1:30 PM EDT) Pathologist [facility] Hepatitis C Antibody Nonreactive Nonreactive [facility] Comment:Antibodies to HCV no t detected; does not exclude early acuteHCV infection. 08/06/2023 1:3 0 PM EDT 08/06/2023 1:35 PM EDT Dolores Serrano MD LAB BLOOD ORDERABLES Final Result [facility] [address] [place] [phone] * THINPREP TIS PAP AND HPV mRNA E6/E7 WITH REFLEX TO HPV 16,18/45 (07/04/2021 9:42 AM EST) [facility] Clinical Information: None given [facility] COMMENT SEE COMMENT [facility] Comment: EXPLANATORY NOTE: The Pap is a screening test for cervical cancer. It is not a diagnostic test and is subject to false negative and false positive results. It is most reliable when a satisfactory sample, regularly obtained, is submitted with relevant clinical findings and history, and when the Pap result is evaluated along with historic and current clinical information. COMMENT: This Pap test has been evaluated with computer assisted technology. [facility] Director Teen Post: SEE COMMENT [facility] Comment: MPG, CT(ASCP) CT screening location: [place] [address] HPV nRNA E6/E7 Not Detected Not Detected [facility] Comment: Methodology: Automatic Presser-Mediated Amplification This assay detects E6/E7 viral messenger RNA (mRNA) from 14 high-risk HPV types (16,18,31,33,35,39,45,51,52,56,58,59,66,68). The analytical performance characteristics of this assay have been determined by [employer]. The modifications have not been cleared or approved by the FDA. This assay has been validated pursuant to the CLIA regulations and is used for clinical purposes. For additional information, please refer to http://education.[facility]/faq/ZGH692v2 (This link if provided for information/ educational purposes only.) Interpretation/Re sult: Negative for intraepithelial lesion or malignancy. [facility] LMP: 06/12/21 [facility] Prev. BX: NONE GIVEN [facility] Prev. PAP: NONE GIVEN [facility] SOURCE: None given [facility] Statement Of Adequacy: SEE COMMENT [facility] Comment: Satisfactory for evaluation. Endocervical/transformation zone component absent. 07/04/2021 9:42 AM EST Manuela VICTOR LAB PATHOLOGY ORDERABLES Final Result [facility] [address] * HIV 1/2 ANTIGEN/ANTIBODY,FOURTH GENERATION W/RFL (03/09/2021 9:20 AM EDT) HIV-1/2 ANTIGEN AND ANTIBODIES, 4TH GENERATION W/ REFLEX NON-REACT SEFERINO NON-REACT SEFERINO [facility] Comment: HIV-1 antigen and HIV-1/HIV-2 antibodies were not detected. There is no laboratory evidence of HIV infection. PLEASE NOTE: This information has been disclosed to you from records whose confidentiality may be protected by state law. If your state requires such protection, then the state law prohibits you from making any further disclosure of the information without the specific written consent of the person to whom it pertains, or as otherwise permitted by law. A general authorization for the release of medical or other information is NOT sufficient for this purpose. For additional information please refer to http://[employer].[facility]/faq/ZJL292 (This link is being provided for informational/ educational purposes only.) The performance of this assay has not been clinically validated in patients less than 2 years old. 03/09/2021 9:20 AM EDT Dolores Serrano MD LAB BLOOD ORDERABLES Final Result Performing Organization Address City/State/[facility] Co ok Phone Number [facility] [address] from Last 3 Months or Most Recently Relevant to Health Maintenance Insurance [facility] C3 DENTAL-[facility] MEDICAID STAND ADULT * Guarantor: Macy Jarvis Account Type Relation to Patient Date of Phone Billing Address Personal/Family Self [address] [place] Care Teams Powerhouse Operator Relationship Specialty Start Date End Date Dolores Serrano MD [address] [place], [place] [address] [place] [address] PCP - General Internal Medicine 01/30/21 Manny Mireles MD [address] [place] [address] 3rd [place] [address] Cardiology 05/28/24
--- OUTSIDE RECORDS SUMMARY | 2025-02-17 10:16 | XMS_ITS | Encounter Summary ---
Author Organization [employer] Address [address] [place] [address] 7 [place] [address] Care Team Providers Care Information Clerk Name Role Phone Dolores Serrano MD Primary Care Provider [phone] Manny Mireles MD Unavailable Reason for Visit * Reason Onset Date Comments Lab Orders 12/08/2024 Encounter Details Date Type Department Care Team ([facility] Contact Info) Description 12/08/2024 Telephone [facility] CHC MED & PEDS [address] [place], [place] [phone] Dolores Serrano MD [address] [place] [address] Lab Orders Social History Tobacco Use Types Packs/Day Years [...] encounter Miscellaneous Notes * Telephone Encounter - Alexis Loving - 12/08/2024 9:39 AM EDT Tc from pt requesting a test through blood. Contact pt at [phone] (Ukrainian speaking) Pt wants to know how many weeks she is at. documented in this encounter Plan of Treatment Upcoming Encounters Date Type Department Care Team (Late st Contact Info) Description 02/23/2025 9:00 AM EDT Office Visit [facility] ADULT DENTAL [address] [place] [address] Juan Aguero [address] [place] [address] documented as of this encounter Visit Diagnoses Not on filedocumented in this encounter Additional Health Concerns Assessment Noted Time PHQ-9 Depression Total Score: 11 025 2:57 PM EDT documented as of this encounter Care Teams Information Clerk Relationship Specialty Start Date End Date Dolores Serrano MD [address] [place] [address] PCP - General Internal Medicine 01/30/21 Manny Mireles MD [address] 3rd [place] [address] Cardiology 05/28/24 documented as of this encounter
--- OUTSIDE RECORDS SUMMARY | 2025-02-17 10:16 | XMS_ITS | Encounter Summary ---
Author Organization [employer] Address [address] [facility] 7t [place] [address] Care Team Providers Care Facility Supervisor Name Role Phone Dolores Serrano MD Primary Care Provider [phone] Manny Mireles MD Unavailable Reason for Visit * Reason Onset Date Comments Referral 08/18/2024 Encounter Details Date Type Department Care Team (Late st Contact Info) Description 08/18/2024 Telephone [facility] MEDICINE [address] [place] [address] Dolores Serrano MD [address] [place], [place] [phone] Referral Social History Tobacco Use Types Packs/Day [...] EDT Tc from pt requesting referral for Rn Rehab. (Reason: Pt states it's for the same reason, states she's supposed to visit it annually) documented in this encounter Plan of Treatment Upcoming Encounters Date Type Department Care Team (Late st Contact Info) Description 02/23/2025 9:00 AM EDT Office Visit [facility] ADULT D[facility] [address] [place] [address] Juan Aguero [address] [place] [address] documented as of this encounter Visit Diagnoses Not on filedocumented in this encounter Additional Health Concerns Assessment Noted Time PHQ-9 Depression Total Score: 11 025 2:57 PM EDT documented as of this encounter Care Teams Facility Supervisor Relationship Specialty Start Date End Date Dolores Serrano MD [address] [place] [address] PCP - General Internal Medicine 01/30/21 Manny Mireles MD [address] [place] [address] 3rd [place] [address] Cardiology 05/28/24 documented as of this encounter
--- OUTSIDE RECORDS SUMMARY | 2025-02-17 10:16 | XMS_ITS | Encounter Summary ---
Author Organization [employer] Address [address] [facility] 7 [place] [address] Care Team Providers Care Saddle Maker Name Role Phone Dolores Serrano MD Primary Care Provider Manny Mireles MD Unavailable Encounter Details Date Type Department Care Team ([facility] st Contact Info) Description 06/18/2023 Orders Only [facility] CHC MED & PEDS [address] [place] [address] Dolores Serrano MD [address] [place] [address] Pelvic varices (Primary Dx) Social History Tobacco [...] Description 02/23/2025 9:00 AM EDT Office Visit [facility] ADULT D[facility] [address] [place] [address] Juan Aguero [address] [place] [address] documented as of this encounter Visit Diagnoses Diagnosis Pelvic varices- Primary documented in this encounter Additional Health Concerns Assessment Noted Time PHQ-9 Depression Total Score: 10 024 11:28 AM EST documented as of this encounter Care Teams Saddle Maker Relationship Specialty Start Date End Date Dolores Serrano MD [address] [place] [address] PCP - General Internal Medicine 01/30/21 Manny Mireles MD [address] [place] [address] Drive 3rd [place] [address] Cardiology 05/28/24 documented as of this encounter
--- OUTSIDE RECORDS SUMMARY | 2025-02-17 10:16 | XMS_ITS | Encounter Summary ---
Author Organization [employer] Address [address] [place] [address] Care Team Providers Care Gasfitter Name Role Phone Dolores Serrano MD Primary Care Provider [phone] Manny Mireles MD Unavailable Reason for Referral * Consultation (Routine) - Closed Specialty Diagnoses / Procedures Referred By Contaliya cortez Referred To Contact Cardiology Diagnoses Mitral valve stenosis, unspecified etiology Dolores Serrano MD [address] [place] [address] Phone: tel: fax: Manny Mireles MD [address] [address] Phone: tel: fax: Referral ID Status Reason Start Date Expiration Date V isits Requested Visits Authorized [id number] Closed Specialty Services Required 08/19/2024 08/19/2025 1 1 Encounter Details Date Type Department Care Team (Late st Contact Info) Description 08/19/2024 Orders Only [facility] MED & PEDS [address] [place], [place] [phone] Dolores Serrano MD [address] [place], [place] [phone] Mitral valve stenosis, unspecified etiology (Primary Dx) [...] 9:00 AM EDT Office Visit [facility] ADULT DENTAL [address] [place] [address] Juan Aguero [address] [place] [address] Scheduled Referrals Name Type Priority Associated Diagnoses [...] documented as of this encounter Care Teams Gasfitter Relationship Specialty Start Date End Date Dolores Serrano MD [address] [place] [address] PCP - General Internal Medicine 01/30/21 Manny Mireles MD [address] [place] [address] 3rd [place] [address] Cardiology 05/28/24 documented as of this encounter
--- OUTSIDE RECORDS SUMMARY | 2025-02-17 10:16 | XMS_ITS | Encounter Summary ---
Author Organization [employer] Address 75 [facility] 7t [place] [address] Care Team Providers Care Conveyor Belt Operator Name Role Phone Dolores Serrano MD Primary Care Provider Manny Mireles MD Unavailable Reason for Visit * Reason Comments Med Refill Encounter Details Date Type Department Care Team ([facility] st Contact Info) Description 02/16/2025 Refill [facility] [address] [place], [place] [phone] Gosia Denise MD 505 [place], [place] [phone] Social History Tobacco Use Types Packs/Day Years [...] Description 02/23/2025 9:00 AM EDT Office Visit [facility] ADULT DENTAL [address] [place] [address] Juan Aguero 505 [place] [address] documented as of this encounter Visit Diagnoses Not on filedocumented in this encounter Additional Health Concerns Assessment Noted Time PHQ-9 Depression Total Score: 11 025 2:57 PM EDT documented as of this encounter Care Teams Conveyor Belt Operator Relationship Specialty Start Date End Date Dolores Serrano MD 505 [place] [address] PCP - General Internal Medicine 01/30/21 Manny Mireles MD [address] [place] [address] 3rd [place] [address] Cardiology 05/28/24 documented as of this encounter
--- OUTSIDE RECORDS SUMMARY | 2025-02-17 10:16 | XMS_ITS | Encounter Summary ---
Author Organization [employer] Address [address] [facility] 7 [place] [address] Care Team Providers Care Appellate Conferee Name Role Phone Dolores Serrano MD Primary Care Provider Manny Mireles MD Unavailable Reason for Visit * Reason Onset Date Comments Nurse Triage 02/16/2025 Encounter Details Date Type Department Care Team ([facility] st Contact Info) Description 02/16/2025 Telephone [facility] CHC MED & PEDS [address] [place], [place] [phone] Dolores Serrano MD 505 [place], [place] [phone] Nurse Triage Social History Tobacco Use Types Packs/Day Years [...] encounter Miscellaneous Notes * Telephone Encounter - Val Leigh RN - 02/16/2025 2:09 PM EDT Symptoms: Breathing Trouble, Chest Pain - Adult Outcome: Transfer to a nurse or provider NOW! Reason: This is the only possible outcome for these symptoms The caller accepted this outcome. Contact pt at [phone] Called pt. No answer. Left message ion Algerian to please call back [facility] nurses at [phone] and if this is an emergency to please dial 911. Called pt. Back via [facility] gis scientist [phone] [place]. Pt. States that she has been feeling SOB and pt. Feels faint all the time since she got home from vacation. Pt. Drinks plenty of water. Pt. Was taking aspirin but, stopped due to her heart racing. Pt. Has a history of Mitral valve stenosis and was referred to [facility] Cardiology but, they have no openings for 2-3 months according to pt. Pt. Was advisedto seek PCP for a new referral to [facility] to see if she can get appointment. Sooner. Pt. States that she has slight chest discomfort at present and I advised that I want pt. To go to ED. Pt. Declines. I advised again that I do not feel comfortable with making an appointment when pt. Is stating that she has discomfort in her chest. No SOB at present, no jaw pain, no left shoulder or arm pain but, I do not feel pt. Should wait. I advised that if she refuses ED that she should go to [facility] walk in now but that they are open until 730pm tonight. Pt. Declines and wants appointment. In [facility]. Appointment. Made in [facility] for 02/17/[address] Denise. Advised if pt. Feels any worse prior to appointment. On 02/17/25 to go to ED or call 911. Protocol Used: Chest Pain (Adult) Protocol-Based Disposition: See in Office or Video Visit Today- Pt. Declines ED and [facility] walk in. Today. Appointment. Made for 02/17/25 at 9am in [facility]. Video visit offer not recorded Positive Triage Question: * All other patients with chest pain (Exception: Fleeting chest pain lasting a few seconds.) * All higher-acuity triage questions were negative * Telephone Encounter - Alexis Loivng - 02/16/2025 2:04 PM EDT Symptoms: Breathing Trouble, Chest Pain - Adult Outcome: Transfer to a nurse or provider NOW! Reason: This is the only possible outcome for these symptoms The caller accepted this outcome. Contact pt at [phone] documented in this encounter Plan of Treatment Upcoming Encounters Date Type Department Care Team (Late st Contact Info) Description 02/23/2025 9:00 AM EDT Office Visit [facility] ADULT DENTAL 505 [place] [address] Juan Aguero 505 [place] [address] documented as of this encounter Visit Diagnoses Not on filedocumented in this encounter Additional Health Concerns Assessment Noted Time PHQ-9 Depression Total Score: 11 025 2:57 PM EDT documented as of this encounter Care Teams Appellate Conferee Relationship Specialty Start Date End Date Dolores Serrano MD 505 [place] [address] PCP - General Internal Medicine 01/30/21 Manny Mireles MD [address] [place] [address] 3rd [place] [address] Cardiology 05/28/24 documented as of this encounter
--- OUTSIDE RECORDS SUMMARY | 2025-02-17 10:16 | XMS_ITS | Encounter Summary ---
Author Organization [employer] Address 75 [facility] 7t [place] [address] Care Team Providers Care Shift Supervisor Melting Name Role Phone Dolores Serrano MD Primary Care Provider +1- [phone] Manny Mireles MD Unavailable Reason for Visit * Reason Onset Date Comments Nurse Triage 11/18/2024 Encounter Details Date Type Department Care Team (Late st Contact Info) Description 11/18/2024 Telephone [facility] MEDICINE [address] [place] [address] Dolores Serrano MD 505 [place], [place] [phone] Nurse Triage Social History Tobacco Use Types [...] encounter Miscellaneous Notes * Telephone Encounter - Carmen iGl RN - 11/18/2024 12:39 PM EDT Triage call with [facility] [place] [id number], [place]. Pt didn't answer x2, unable to leave voice message due to voice mailbox is not set up yet. * Telephone Encounter - Yelitza Sousa - 11/18/2024 12:27 PM EDT Symptoms: Shoulder Pain - Not From Injury, Headache Outcome: Schedule an urgent appointment (within 4 hours) or talk to a nurse or provider soon Reason: Getting worse The caller accepted this outcome. documented in this encounter Plan of Treatment Upcoming Encounters Date Type Department Care Team (Late st Contact Info) Description 02/23/2025 9:00 AM EDT Office Visit [facility] CHC ADULT DENTAL [address] [place] [address] Juan Aguero 505 [place] [address] documented as of this encounter Visit Diagnoses Not on filedocumented in this encounter Additional Health Concerns Assessment Noted Time PHQ-9 Depression Total Score: 11 025 2:57 PM EDT documented as of this encounter Care Teams Shift Supervisor Melting Relationship Specialty Start Date End Date Dolores Serrano MD [address] [place] [address] PCP - General Internal Medicine 01/30/21 Manny Mireles MD [address] [place] [address] Drive 3rd [place] [address] Cardiology 05/28/24 documented as of this encounter
--- OUTSIDE RECORDS SUMMARY | 2025-02-17 10:16 | XMS_ITS | Encounter Summary ---
Author Organization [employer] Address 75 [facility] 7t [place] [address] Care Team Providers Care Communications Director Name Role Phone Dolores Serrano MD Primary Care Provider Manny Mireles MD Unavailable Encounter Details Date Type Department Care Team (Late st Contact Info) Description 02/16/[address] [facility] MEDICINE [address] [place] [address] Dolores Serrano MD [address] [place], [place] [phone] Social History Tobacco Use Types Packs/Day Years [...] Description 02/23/2025 9:00 AM EDT Office Visit [facility]ULT [facility] 505 [place] [address] Laci Juan 505 [place] [address] documented as of this encounter Visit Diagnoses Not on filedocumented in this encounter Additional Health Concerns Assessment Noted Time PHQ-9 Depression Total Score: 11 025 2:57 PM EDT documented as of this encounter Care Teams Communications Director Relationship Specialty Start Date End Date Dolores Serrano MD 505 [place] [address] PCP - General Internal Medicine 01/30/21 Manny Mireles MD [address] [place] [address] 3rd [place] [address] Cardiology 05/28/24 documented as of this encounter
--- OUTSIDE RECORDS SUMMARY | 2025-02-17 10:16 | XMS_ITS | Encounter Summary ---
Author Organization [employer] Address [address] [facility] [address] 7t [place] [address] Care Team Providers Care Director Data Name Role Phone Dolores Serrano MD Primary Care Provider +1- [phone] Manny Mireles MD Unavailable Encounter Details Date Type Department Care Team (Latest Contact Info) Description 02/17/2025 Travel Social History Tobacco Use Types Packs/Day [...] Visit [facility] [address] [place] [address] Juan Aguero 505 [place] [address] documented as of this encounter Visit Diagnoses Not on filedocumented in this encounter Additional Health Concerns Assessment Noted Time PHQ-9 Depression Total Score: 11 025 2:57 PM EDT documented as of this encounter Care Teams Director Data Relationship Specialty Start Date End Date Dolores Serrano MD 505 [place] [address] PCP - General Internal Medicine 01/30/21 Manny Mireles MD [address] [place] [address] 3rd [place] [address] Cardiology 05/28/24 documented as of this encounter
--- OUTSIDE RECORDS SUMMARY | 2025-02-17 10:16 | XMS_ITS | Encounter Summary ---
Author Organization [employer] Address 75 [facility] 7t [place] [address] Care Team Providers Care Crm Specialist Name Role Phone Dolores Serrano MD Primary Care Provider [phone] Manny Mireles MD Unavailable Encounter Details Date Type Department Care Team ([facility] st Contact Info) Description 12/14/2024 Orders Only [facility] CHC MED & PEDS [address] [place] [address] Dolores Serrano MD 505 [place] [address] Missed period (Primary Dx) Social History Tobacco Use Types [...] Description 02/23/2025 9:00 AM EDT Office Visit [facility] ADULT DENTAL [address] [place] [address] Juan Aguero 505 [place] [address] Scheduled Orders Name Type Priority Associated Diagnoses Orde r Schedule hCG, Total, Quantitative Lab Routine Missed period Expected: 12/14/2024 (Approximate), Expires: 12/14/2025 documented as of this encounter Visit Diagnoses Diagnosis Missed period- Primary documented in this encounter Additional Health Concerns Assessment Noted Time PHQ-9 Depression Total Score: 11 025 2:57 PM EDT documented as of this encounter Care Teams Crm Specialist Relationship Specialty Start Date End Date Dolores Serrano MD [address] [place] [address] PCP - General Internal Medicine 01/30/21 Manny Mireles MD [address] [place] [address] 3rd [place] [address] Cardiology 05/28/24 documented as of this encounter
--- OUTSIDE RECORDS SUMMARY | 2025-02-17 10:16 | XMS_ITS | Encounter Summary ---
Author Organization [employer] Address 75 [facility] 7 [place] [address] Care Team Providers Care Dump Motorman Name Role Phone Dolores Serrano MD Primary Care Provider Manny Mireles MD Unavailable Reason for Visit * Reason Onset Date Comments Nurse Triage 11/04/2024 Encounter Details Date Type Department Care Team ([facility] st Contact Info) Description 11/04/2024 Telephone [facility] CHC MED & PEDS [address] [place], [place] [phone] Dolores Serrano MD [address] [place] [address] Nurse Triage Social History Tobacco Use Types [...] Miscellaneous Notes * Telephone Encounter - Carmen Gil RN - 11/04/2024 1:17 PM EDT Triage call with BLS [place] [id number] Pt reports new medication prescribed, Robaxin 500mg is not helping. Pt was seen in [facility] 10/03/24 and was dx with strain of neck muscle. Pt was advised to use moist heat, gentle exercise and use new prescription robaxin and diclofenac sodium gel as prescribed. Pt reports doing all these things with no relief. Pt reports robaxin isn't helping at all. Pt is requesting a prescription for ibuprofen. P t is advised senior copywriter will send this to PCP and [facility] nursing team for prn follow up and Pt agrees withdisposition. Pt is advised to continue to follow MD instructions and Pt agrees. Protocol Used: Neck Pain or Stiffness (Adult) Protocol-Based Disposition: Home Care Positive Triage Question: * Neck pain or stiffness * All higher-acuity triage questions were negative Care Advice Discussed: * Reassurance and Education - Neck Pain or Stiffness * Pain Medicines * Pain Medicines - Extra Notes and Warnings * Sleep * Activity * Stretching Exercises * Reasons To Call Back - Moderate pain (such as interferes with normal activities) lasts over 3 days - Pain lasts over 2 weeks - Pain begins to shoot into the arms - Numbness or weakness occurs in your arms or legs - You become worse * Telephone Encounter - Noemi Barnard - 11/04/2024 12:30 PM EDT Symptoms: Shoulder Pain - Not From Injury, Neck Pain - Not From Injury Outcome: Talk to a nurse or provider within 15 minutes Reason: Weakness of the arm Please contact pt at [phone] (Danish Speaker) Pt states medication prescribed yesterday does not seem to be helping. Medication is methocarbamol (Robaxin) 500 MG tablet documented in this encounter Plan of Treatment Upcoming Encounters Date Type Department Care Team (Late st Contact Info) Description 02/23/2025 9:00 AM EDT Office Visit [facility] ADULT DENTAL [address] [place] [address] Juan Aguero 505 [place] [address] documented as of this encounter Visit Diagnoses Not on filedocumented in this encounter Additional Health Concerns Assessment Noted Time PHQ-9 Depression Total Score: 11 025 2:57 PM EDT documented as of this encounter Care Teams Dump Motorman Relationship Specialty Start Date End Date Dolores Serrano MD 505 [place] [address] PCP - General Internal Medicine 01/30/21 Manny Mireles MD [address] [place] [address] 3rd [place] [address] Cardiology 05/28/24 documented as of this encounter
--- OUTSIDE RECORDS SUMMARY | 2025-02-17 10:16 | XMS_ITS | Encounter Summary ---
Author Organization [employer] Address 75 [facility] 7 [place] [address] Care Team Providers Care Build Automation Engineer Name Role Phone Dolroes Serrano MD Primary Care Provider +1- [phone] Manny Mireles MD Unavailable Reason for Visit * Reason Onset Date Comments Appointment Request 10/05/2024 Encounter Details Date Type Department Care Team ([facility] st Contact Info) Description 10/05/2024 Telephone [facility] MEDICINE [address] [place] [address] Dolores Serrano MD [address] [place], [place] [phone] Appointment Request Social History Tobacco Use Types Packs/Day Years [...] encounter Miscellaneous Notes * Telephone Encounter - Kashmir Micha - 10/05/2024 3:09 PM EDT Tc fro pt requesting to reschedule follow up from 10/01. Please contact pt at [phone]. (Montenegrin Speaker) documented in this encounter Plan of Treatment Upcoming Encounters Date Type Department Care Team (Late st Contact Info) Description 02/23/2025 9:00 AM EDT Office Visit [facility] ADULT [facility] [address] [place] [address] Juan Aguero 505 [place] [address] documented as of this encounter Visit Diagnoses Not on filedocumented in this encounter Additional Health Concerns Assessment Noted Time PHQ-9 Depression Total Score: 11 025 2:57 PM EDT documented as of this encounter Care Teams Build Automation Engineer Relationship Specialty Start Date End Date Dolores Serrano MD [address] [place] [address] PCP - General Internal Medicine 01/30/21 Manny Mireles MD [address] [place] [address] 3rd [place] [address] Cardiology 05/28/24 documented as of this encounter
[2025-02-17 14:04] LABS: MANUAL DIFF FLAG NO
[2025-02-17 14:09] LABS: Hematocrit 39.9 % (37.0-47.0); Hemoglobin 12.8 g/dl (12.0-16.0); Imm Gran Abs Auto 0.03 X10*3/uL (0.00-0.03); Imm Gran Pct Auto 0.4 % (0.0-0.4); Lymphocytes Absolute Auto 2.9 X10*3/uL (1.2-4.9); Mean Corpuscular HGB Conc 32.1 g/dl (31.0-35.0); Mean Corpuscular Hemoglobin 30.0 pg (27.0-33.0); Mean Corpuscular Volume 93.4 fL (80.0-98.0); NRBC Abs Auto 0.000 X10*3/uL (0.0-0.012); NRBC Pct Auto 0.0 /100WBC (0.0-0.2); Platelet Count 198 X10*3/uL (160-400); Red Blood Count 4.27 X10*6/uL (4.20-5.50); White Blood Count 7.4 X10*3/uL (4.8-10.8)
[2025-02-17 14:33] LABS: Anion Gap 10 (12-20); Blood Urea Nitrogen 9 mg/dL (9-16); Calcium 9.1 mg/dL (8.4-10.2); Carbon Dioxide 27 mmol/L (22-29); Chloride 108 mmol/L (96-108); Estimated Glomerular Filt Rate > 60; Potassium 4.5 mmol/L (3.3-5.1); Sodium 140 mmol/L (135-145)
== END 2025-02-17 09:27 | disposition home or self-care (01) ==
LOC: HO.CHCLDS 09:26
PROVIDERS: Visit Provider Student in an Organized Health Care Education/Training Program
DX: R00.2 Palpitations (principal)
CPT/HCPCS: 36415; 80048; 84443; 85025

== ENCOUNTER 2025-03-16 10:38 | Outpatient (AMB) | payer MEDICAID, SELFPAY ==
[2025-03-16 10:48] VITALS: BP 108/62; PULSE 71; BMI 21.9
--- NOTE | 2025-03-16 10:48 | A.OFFVIS_ITS ---
Vital Signs 03/16/25 10:48 Height 5 ft 2 in Weight 119 lb 14.903 oz BMI 21.9 BP 108/62 Blood Pressure Location Lt brachial Position Sitting Pulse 71 Pulse Source Pulse Oximeter Intake Visit Reasons: f/u pt R palpitations Allergies No Known Allergies (No Known Allergies*) Allergy (Verified 03/16/25 10:50) Medication List - Last Reconciled 03/16/25 by Nancy Vincent INSURANCE AND BENEFITS CLERK-C aspirin (Ecotrin Low Strength) 81 mg PO DAILY HPI HPI f/u pt R palpitations: Details: Maria Isabel is a 34-year-old female with past medical history of mitral valve and tricuspid valve repair age 22 in [place] who presents with heart palpitations. Today she reports that in the last few months she has noticed heart palpitations where her heart is beating rapid for no reason. This can last several minutes before going back to normal. It makes her feel anxious. When she has the heart palpitations if she had her head does not feel right. She has had no presyncope, syncope, falls. She has been exercising routinely and does notice heart palpitations when she exercises but this does not cause her concern. She will notice random discomfort in her chest. No shortness of breath or leg edema. She has been taking her aspirin regularly. [facility] Surgical History Status post mitral valve repair Hx of tonsillectomy History of heart surgery Family History Mother HTN (hypertension) Social History Alcohol intake: never Review of Systems Const All systems reviewed & are unremarkable except as noted in HPI and below ENT Reports dizziness Card Denies chest pain, Denies chest pain at rest, Denies chest pain with activity, Reports rapid heart rate, Denies pedal edema, Denies edema, Denies leg edema, Denies lightheadedness, Denies palpitations, Denies dyspnea, Denies dyspnea on exertion and Denies orthopnea Resp Denies cough, Denies dyspnea and Denies dyspnea on exertion GI Denies hematochezia and Denies change in stool character Musc Denies abnormal gait, Denies limited range of motion, Denies muscle cramps, Denies muscle weakness, Denies numbness, Denies radiating pain into limb, Denies stiffness and Denies tingling Neuro Denies abnormal gait, Reports dizziness, Denies numbness and Denies tingling Endo Denies palpitations Physical Exam Vital Signs: Last Vital Signs Pulse 71 03/16/25 10:48 BP 108/62 03/16/25 10:48 BMI result Body Mass Index 21.9 Const General: cooperative, healthy appearing, comfortable and no acute distress Orientation/consciousness: patient oriented x3 Neck Neck: Yes normal visual inspection Resp Effort & Inspection: normal respiratory effort Auscultation: clear to auscultation bilaterally, no rales, no rhonchi and no wheezes Cardio Rate: regular rate Rhythm: regular rhythm Heart sounds: S1 normal heart sound present, S2 normal heart sound present, no gallops, no murmurs and no rubs Skin General skin exam: no rashes or lesions noted Neuro General: patient oriented x3 Extrem General: Yes normal to inspection, No no pedal edema and No calf tenderness Psych Appearance: grossly normal Mental Status: mental status grossly normal Speech and movement: Normal speech and movement present Office Procedures EKG Details: Today, read by me, Sinus rhythm with nonspecific T wave abn, rate 71, Qtc 419ms [id number], Complete Assessment & Plan Assessment & Plan (1) Palpitations: Code(s): R00.2 - Palpitations Category: Medical Plan: Reports of rapid heart palpitations causing her concern. EKG today showing normal sinus rhythm, normal MN, QRS and QTC intervals, rate 71. Ejection fraction known to be normal as seen on stress echo 06/14/2022. Her symptoms sounds like sinus tachycardia though SVT not excluded. Less likely to have paroxysmal AFib. Atria were normal size on last full echo 05/30/2021. She is due for an echo prior to her next visit in August. Will check a 1 week Holter monitor to assess for arrhythmia. Plan to call her with results. Reviewed reduction in caffeinated beverages, maintain good hydration and continue exercise as tolerated. (2) Status post mitral valve repair: Comment: At age 22 in [place], records not available although appears that patient had severe mitral regurgitation. Also seems like she had tricuspid valve repair at that time with a ring Code(s): Z98.890 - Other specified postprocedural states Category: Surgical Plan: History of mitral and tricuspid valve repair. Last echo 05/30/2021 showed EF 65%, moderate mitral annular calcification, mild mitral regurgitation, can not exclude [id number] mitral stenosis, mild tricuspid regurgitation. Repeat echocardiogram due for 2025. Continue daily aspirin. Continue SBE prophylaxis per ACC/AHA guidelines. Plan Time spent on chart review, documentation, interview and assessment Orders: Orders ECG 7 day holter monitor Today R00.2 - Palpitations, Z98.890 - Other specified postprocedural states Coding Level of Care Code Est Pt Level 3 (08723) Complex EM visit Add On G2211 Diagnoses Palpitations R00.2 Status post mitral valve repair Z98.890 CPT Codes EKG - CPT: 96016-Dsurraevynzzvmbqy, Complete ([id number]) Time Spent (min) 24
--- OUTSIDE RECORDS SUMMARY | 2025-03-16 13:23 | XMS_ITS | Encounter Summary ---
Author Organization [employer] Address [address] [facility] 7t [place] [address] Care Team Providers Care Product Applications Scientist Name Role Phone Dolores Serrano MD Primary Care Provider Manny Mireles MD Unavailable Encounter Details Date Type Department Care Team ([facility] st Contact Info) Description 12/14/2024 Orders Only [facility] CHC MED & PEDS [address] [place] [address] Dolores Serrano MD [address] [place] [address] Missed period (Primary Dx) Social History Tobacco [...] Care Team (Late st Contact Info) Description 03/18/2025 11:30 AM EDT Office Visit [facility] MED & PEDS [address] [place] [address] Dolores Serrano MD [address] [place] [address] 03/23/2025 9:00 AM EST Office Visit [facility] ADULT DENTAL [address] [place] [address] Juan Aguero 505 [place] [address] Scheduled Orders Name Type Priority Associated Diagnoses Orde r Schedule hCG, Total, Quantitative Lab Routine Missed period Expected: 12/14/2024 (Approximate), Expires: 12/14/2025 documented as of this encounter Visit Diagnoses Diagnosis Missed period- Primary documented in this encounter Additional Health Concerns Assessment Noted Time PHQ-9 Depression Total Score: 11 025 2:57 PM EDT documented as of this encounter Care Teams Product Applications Scientist Relationship Specialty Start Date End Date Dolores Serrano MD [address] [place] [address] PCP - General Internal Medicine 01/30/21 Manny Mireles MD [address] [place] [address] Drive 3rd [place] [address] Cardiology 05/28/24 documented as of this encounter
--- OUTSIDE RECORDS SUMMARY | 2025-03-16 13:23 | XMS_ITS | Encounter Summary ---
Author Organization [employer] Address 75 [facility] 7 [place] [address] Care Team Providers Care Satellite Dish Installer Name Role Phone Dolores Serrano MD Primary Care Provider +1- [phone] Manny Mireles MD Unavailable Reason for Visit * Reason Onset Date Comments Appointment Request 10/05/2024 Encounter Details Date Type Department Care Team ([facility] st Contact Info) Description 10/05/2024 Telephone [facility] MEDICINE [address] [place] [address] Dolores Serrano MD [address] [place], [place] [phone] Appointment Request Social History Tobacco Use Types [...] up from 10/01. Please contact pt at [phone]. (Bruneian Speaker) documented in this encounter Plan of Treatment Upcoming Encounters Date Type Department Care Team (Late st Contact Info) Description 03/18/2025 11:30 AM EDT Office Visit [facility] MED & PEDS [address] [place] [address] Dolores Serrano MD [address] [place] [address] 03/23/2025 9:00 AM EST Office Visit [facility] ADULT DENTAL [address] [place] [address] Juan Aguero 505 [place] [address] documented as of this encounter Visit Diagnoses Not on filedocumented in this encounter Additional Health Concerns Assessment Noted Time PHQ-9 Depression Total Score: 11 025 2:57 PM EDT documented as of this encounter Care Teams Satellite Dish Installer Relationship Specialty Start Date End Date Dolores Serrano MD [address] [place] [address] PCP - General Internal Medicine 01/30/21 Manny Mireles MD [address] [place] [address] 3rd [place] [address] Cardiology 05/28/24 documented as of this encounter
--- OUTSIDE RECORDS SUMMARY | 2025-03-16 13:23 | XMS_ITS | Encounter Summary ---
Author Organization [employer] Address 75 [facility] 7 [place] [address] Care Team Providers Care Mycology Teacher Name Role Phone Dolores Serrano MD Primary Care Provider [phone] Manny Mireles MD Unavailable Encounter Details Date Type Department Care Team ([facility] st Contact Info) Description 06/18/2023 Orders Only [facility] CHC MED & PEDS [address] [place] [address] Dolores Serrano MD 505 [place] [address] Pelvic varices (Primary Dx) Social History Tobacco [...] Description 03/18/2025 11:30 AM EDT Office Visit [facility] MED & PEDS 505 [place] [address] Dolores Serrano MD 505 [place] [address] 03/23/2025 9:00 AM EST Office Visit [facility] ADULT DENTAL 505 [place] [address] Laci, Juan 505 [place] [address] documented as of this encounter Visit Diagnoses Diagnosis Pelvic varices- Primary documented in this encounter Additional Health Concerns Assessment Noted Time PHQ-9 Depression Total Score: 10 024 11:28 AM EST documented as of this encounter Care Teams Mycology Teacher Relationship Specialty Start Date End Date Dolores Serrano MD 505 [place] [address] PCP - General Internal Medicine 01/30/21 Manny Mireles MD [address] [place] [address] 3rd [place] [address] Cardiology 05/28/24 documented as of this encounter
--- OUTSIDE RECORDS SUMMARY | 2025-03-16 13:24 | XMS_ITS | Encounter Summary ---
Author Organization [employer] Address 75 [facility] 7 [place] [address] Care Team Providers Care Journeyman Pressman Name Role Phone Dolores Serrano MD Primary Care Provider [phone] Manny Mireles MD Unavailable Reason for Visit * Reason Onset Date Comments Nurse Triage 11/04/2024 Encounter Details Date Type Department Care Team ([facility] st Contact Info) Description 11/04/2024 Telephone [facility] CHC MED & PEDS 505 [place] [address] Dolores Serrano MD 505 [place] [address] Nurse Triage Social History Tobacco Use Types [...] PM EDT Triage call with BLS ID [id number] Pt reports new medication prescribed, Robaxin 500mg [...] prescription for ibuprofen. P t is advised telegraphic typewriter mechanic will send this to PCP and [facility] [...] of the arm Please contact pt at [phone] (Turkish Speaker) Pt states medication prescribed yesterday does not seem to be helping. Medication is methocarbamol (Robaxin) 500 MG tablet documented in this encounter Plan of Treatment Upcoming Encounters Date Type Department Care Team (Late st Contact Info) Description 03/18/2025 11:30 AM EDT Office Visit [facility] MED & PEDS 505 [place] [address] Dolores Serrano MD 505 [place] [address] 03/23/2025 9:00 AM EST Office Visit [facility] ADULT DENTAL 505 [place] [address] Laci, Juan 505 [place] [address] documented as of this encounter Visit Diagnoses Not on filedocumented in this encounter Additional Health Concerns Assessment Noted Time PHQ-9 Depression Total Score: 11 025 2:57 PM EDT documented as of this encounter Care Teams Journeyman Pressman Relationship Specialty Start Date End Date Dolores Serrano MD 505 [place] [address] PCP - General Internal Medicine 01/30/21 Manny Mireles MD [address] [place] [address] 3rd [place] [address] Cardiology 05/28/24 documented as of this encounter
--- OUTSIDE RECORDS SUMMARY | 2025-03-16 13:24 | XMS_ITS | Encounter Summary ---
Author Organization [employer] Address [address] [place] [address] Care Team Providers Care Car Seat Upholsterer Name Role Phone Dolores Serrano MD Primary Care Provider [phone] Manny Mireles MD Unavailable Reason for Referral * Consultation (Routine) - Closed Specialty Diagnoses / Procedures Referred By Contaliya cortez Referred To Contact Cardiology Diagnoses Mitral valve stenosis, unspecified etiology Dolores Serrano MD 505 [place] [address] Phone: tel: fax: Manny Mireles MD [address] [address] Phone: tel: fax: Referral ID Status Reason Start Date Expiration Date V isits Requested Visits Authorized [id number] Closed Specialty Services Required 08/19/2024 08/19/2025 1 1 Encounter Details Date Type Department Care Team (Late st Contact Info) Description 08/19/2024 Orders Only [facility] CHC MED & PEDS 505 [place], [place] [phone] Dolores Serrano MD 505 [place], [place] [phone] Mitral valve stenosis, unspecified etiology (Primary Dx) [...] 11:30 AM EDT Office Visit [facility] MED & PEDS 505 [place] [address] Dolores Serrano MD 505 [place] [address] 03/23/2025 9:00 AM EST Office Visit [facility] ADULT DENTAL 505 [place] [address] Juan Aguero 505 [place] [address] Scheduled Referrals Name Type Priority Associated Diagnoses [...] documented as of this encounter Care Teams Car Seat Upholsterer Relationship Specialty Start Date End Date Dolores Serrano MD 505 [place] [address] PCP - General Internal Medicine 01/30/21 Manny Mireles MD [address] [place] [address] 3rd [place] [address] Cardiology 05/28/24 documented as of this encounter
--- OUTSIDE RECORDS SUMMARY | 2025-03-16 13:24 | XMS_ITS | Encounter Summary ---
Author Organization [employer] Address 75 [facility] 7t [place] [address] Care Team Providers Care Die Grinder Name Role Phone Dolores Serrano MD Primary Care Provider +1- [phone] Manny Mireles MD Unavailable Reason for Visit * Reason Onset Date Comments Nurse Triage 11/18/2024 Encounter Details Date Type Department Care Team (Late st Contact Info) Description 11/18/2024 Telephone [facility] MEDICINE [address] [place] [address] Dolores Serrano MD 505 [place], [place] [phone] Nurse Triage Social History Tobacco Use Types [...] Telephone Encounter - Carmen Gil RN - 11/18/2024 12:39 PM EDT Triage call with [facility] [place] [id number], Sergioiana. Pt didn't answer x2, unable to leave [...] [facility] MED & PEDS 505 [place] [address] Dolores Serrano MD 505 [place] [address] 03/23/2025 9:00 AM EST Office Visit [facility] ADULT DENTAL 505 [place] [address] Juan Aguero 505 [place] [address] documented as of this encounter Visit Diagnoses Not on filedocumented in this encounter Additional Health Concerns Assessment Noted Time PHQ-9 Depression Total Score: 11 025 2:57 PM EDT documented as of this encounter Care Teams Die Grinder Relationship Specialty Start Date End Date Dolores Serrano MD 505 [place] [address] PCP - General Internal Medicine 01/30/21 Manny Mireles MD [address] [place] [address] 3rd [place] [address] Cardiology 05/28/24 documented as of this encounter
--- OUTSIDE RECORDS SUMMARY | 2025-03-16 13:24 | XMS_ITS | Encounter Summary ---
Author Organization [employer] Address 75 [facility] 7t [place] [address] Care Team Providers Care Manager Of Exhibitions And Collections Name Role Phone Dolores Serrano MD Primary Care Provider Manny Mireles MD Unavailable Encounter Details Date Type Department Care Team ([facility] st Contact Info) Description 11/04/2024 Orders Only [facility] CHC MED & PEDS 505 [place] [address] Dolores Serrano MD 505 [place] [address] Strain of neck muscle, initial encounter (Primary [...] [facility] MED & PEDS 505 [place] [address] Dolores Serrano MD 505 [place] [address] 03/23/2025 9:00 AM EST Office Visit [facility] ADULT DENTAL 505 [place] [address] Juan Aguero 505 [place] [address] documented as of this encounter Visit Diagnoses Diagnosis Strain of neck muscle, initial encounter- Primary documented in this encounter Additional Health Concerns Assessment Noted Time PHQ-9 Depression Total Score: 11 025 2:57 PM EDT documented as of this encounter Care Teams Manager Of Exhibitions And Collections Relationship Specialty Start Date End Date Dolores Serrano MD 505 [place] [address] PCP - General Internal Medicine 01/30/21 Manny Mireles MD [address] [place] [address] Drive 3rd [place] [address] Cardiology 05/28/24 documented as of this encounter
--- OUTSIDE RECORDS SUMMARY | 2025-03-16 13:24 | XMS_ITS | Clinical Summary ---
Author Organization [employer] Address 75 [facility] 7t [place] [address] Care Team Providers Care Employment Services Director Name Role Phone Dolores Serrano MD [...] grams) 1 hour prior to dental procedure 12 capsule 02/23/20 25 Active amoxicillin (Amoxil) 500 MG capsule [...] prior to dental procedure 4 capsule 3 11/13/19 25 025 Discontinued drospirenone-e thinyl estradiol (Nallely, Gianvi) 3-0.02 MG tablet Take 1 tablet by mouth Once per day. 28 tablet 2 11/28/19 25 025 Discontinued Active Problems Problem Noted Date [...] Patient to reach out to [facility] team as needed, Patient to engage in [...] Patient to reach out to [facility] team as needed, Patient to engage in [...] Patient to reach out to [facility] team as needed, Patient to engage in OP therapy , and Patient to reach out to HC as needed Mitral stenosis 01/09/2023 Encounters Date Type Department Care Team Description 02/17/2025 9:00 AM EDT Office Visit [facility] MED & PEDS [address] [place] [address] Gosia Denise MD Palpitations (Primary Dx) 02/17/2025 Travel 02/16/2025 Telephone [facility] MED & PEDS [address] [place] [address] Dolores Serrano MD Nurse Triage 02/16/2025 Telephone [facility] MEDICINE [address] [place] [address] Dolores Serrano MD 02/16/2025 Refill [facility] MED & PEDS [address] [place] [address] Gosia Denise MD 12/14/2024 Orders Only [facility] MED & PEDS [address] [place] [address] Dolores Serrano MD Missed period (Primary Dx) 12/14/2024 Telephone [facility] MED & PEDS [address] [place] [address] Dolores Serrano MD Nurse Triage from Last [...] Description 03/18/2025 11:30 AM EDT Office Visit [facility] MED & PEDS [address] [place] [address] Dolores Serrano MD [address] [place], [place] [phone] 03/23/2025 9:00 AM EST Office Visit [facility] ADULT DENTAL [address] [place], [place] [phone] Juan Aguero 505 [place] [address] Health Maintenance Due Date Last Done Comments [...] Diagnosis Comments CBC WITH AUTO DIFFERENTIAL Routine 02/17/2025 9:27 AM EDT Palpitations TSH W/REFLEX TO FT4 Routine 02/17/2025 9 :27 AM EDT Palpitations BASIC METABOLIC PANEL Routine 02/17/2025 9:27 AM EDT Palpitations PROPHYLAXIS - ADULT Routine 09/03/2024 3 :00 [...] Relevant to Health Maintenance Results * TSH with Reflex to Free T4 (02/17/2025 9:27 AM EDT) TSH reflex Free T4 0.52 0.32 - 4.0 uIU/mL [facility] Blood Venous blood specimen / Unknown 02/17/2025 9:27 AM EDT 02/17/2025 1:58 PM EDT us Gosia Denise MD LAB BLOOD ORDERABLES Final Resul t [facility] [address] [place] [phone] * CBC auto differential (02/17/2025 9:27 AM EDT) White Blood Count 7.4 4.8 - 10.8 X10*3/uL [facility] Red Blood Count 4.27 4.20 - 5.50 X10*6/uL [facility] Hemoglobin 12.8 12.0 - 16.0 g/dl [facility] Hematocrit 39.9 37.0 - 47.0 % [facility] Mean Corpuscular Volume 93.4 80.0 - 98.0 fL [facility] Mean Corpuscular Hemoglobin 30.0 27.0 - 33.0 pg [facility] Mean Corpuscular HGB Conc 32.1 31.0 - 35.0 g/dl [facility] Red Cell Distribution Width 13.2 11.0 - 16.0 % [facility] Platelet Count 198 160 - 400 X10*3/uL [facility] Mean Platelet Volume 11.9 9.4 - 12.3 fL [facility] Neutrophils Percent Auto 51.4 45 - 73 % [facility] Imm Gran Pct Auto 0.4 0.0 - 0.4 % [facility] Lymphocytes Percent Auto 38.7 20 - 40 % [facility] Monocytes Percent Auto 6.9 2 - 11 % [facility] Eosinophils Percent Auto 1.9 0 - 4 % [facility] Basophils Percent Auto 0.7 0 - 2 % [facility] NRBC Pct Auto 0.0 0.0 - 0.2 /100WBC [facility] Neutrophils Absolute Auto 3.8 2.0 - 8.3 x10*3/uL [facility] Imm Gran Abs Auto 0.03 0.00 - 0.03 X10*3/uL [facility] Lymphocytes Absolute Auto 2.9 1.2 - 4.9 X10*3/uL [facility] Monocytes Absolute Auto 0.5 0.1 - 1.2 X10*3/uL [facility] Eosinophils Absolute Auto 0.1 0.0 - 0.4 X10*3/uL [facility] Basophils Absolute Auto 0.1 0.0 - 0.2 X10*3/uL [facility] NRBC Abs Auto 0.000 0.0 - 0.012 X10*3/uL [facility] Blood Venous blood specimen / Unknown 02/17/2025 9:27 AM EDT 02/17/2025 1:58 PM EDT us Gosia Denise MD LAB BLOOD ORDERABLES Final Resul t [facility] [address] [place] [phone] * (ABNORMAL) Basic Metabolic Panel (02/17/2025 9:27 AM EDT) Sodium 140 135 - 145 mmol/L [facility] Potassium 4.5 3.3 - 5.1 mmol/L [facility] Chloride 108 96 - 108 mmol/L [facility] Carbon Dioxide 27 22 - 29 mmol/L [facility] Anion Gap 10(L) 12 - 20 [facility] Urea Nitrogen (BUN) 9 9 - 16 mg/dL [facility] Creatinine, Serum 0.55 0.5 - 1.4 mg/dL [facility] Estimated Glomerular Filt Rate >60 [facility] Comment:Chronic Kidney Disea se: Estimated GFR < 60 mL/min/1.89v9Ypcuqg Kidney Disease: Estimated GFR < 15 mL/min/1.73m2 Glucose 92 60 - 115 mg/dL [facility] Calcium 9.1 8.4 - 10.2 mg/dL [facility] Blood Venous blood specimen / Unknown 02/17/2025 9:27 AM EDT 02/17/2025 1:58 PM EDT Gosia Denise MD LAB BLOOD ORDERABLES Final Resul t Performing Organization Address [facility] de Phone Number [facility] [address] [place] [phone] * Hepatitis C Ab (08/06/2023 1:30 PM EDT) Hepatitis C Antibody Nonreactive Nonreactive [facility] Comment:Antibodies to HCV no t detected; does not exclude early acuteHCV infection. 08/06/2023 1:30 PM EDT 08/06/2023 1:35 PM EDT Dolores Serrano MD LAB BLOOD ORDERABLES Final Result Performing Organization Address [facility] de Phone Number [facility] [address] [place] [phone] * THINPREP TIS PAP AND HPV mRNA E6/E7 WITH REFLEX TO HPV 16,18/45 (07/04/2021 9:42 AM EST) Clinical Information: None given [facility] [...] has been evaluated with computer assisted technology. [facility] Transportation Logistics Internship: SEE COMMENT [facility] Comment: MPG, CT(ASCP) CT screening location: [address] [address] HPV nRNA E6/E7 Not Detected Not Detected [facility] Comment: Methodology: Sandwich Counter Attendant-Mediated Amplification This assay detects E6/E7 viral messenger RNA (mRNA) from 14 high-risk HPV types (16,18,31,33,35,39,45,51,52,56,58,59,66,68). The analytical performance characteristics of this assay have been determined by [employer]. The modifications have not been cleared or approved by the FDA. This assay has been validated pursuant to the CLIA regulations and is used for clinical purposes. For additional information, please refer to http://education.Ease My Sell/faq/YWP125y4 (This link if provided for information/ educational purposes only.) Interpretation/Re sult: Negative for intraepithelial lesion or malignancy. [facility] LMP: 06/12/21 [facility] Prev. BX: NONE GIVEN [facility] Prev. PAP: NONE GIVEN [facility] SOURCE: None given [facility] Statement Of Adequacy: SEE COMMENT [facility] Comment: Satisfactory for evaluation. Endocervical/transformation zone component absent. 07/04/2021 9:42 AM EST Manuela VICTOR LAB PATHOLOGY ORDERABLES Final Result [facility] [address] [place] [address], * HIV 1/2 ANTIGEN/ANTIBODY,FOURTH GENERATION W/RFL (03/09/2021 [...] purpose. For additional information please refer to http://[employer].Molecule Synth.Kreyonic/faq/QTN812 (This link is being provided for informational/ educational purposes only.) The performance of this assay has not been clinically validated in patients less than 2 years old. 03/09/2021 9:20 AM EDT Dolores Serrano MD LAB BLOOD ORDERABLES Final Result Performing Organization Address City/State/[facility] Co tn Phone Number [facility]ly [facility], [facility] from Last 3 Months or Most Recently Relevant to Health Maintenance Insurance [facility] C3 DENTAL-[facility] MEDICAID STAND ADULT Care Teams Employment Services Director Relationship Specialty Start Date End Date Dolores Serrano MD [address] [place], [place] [address]sun [place] PCP - General Internal Medicine 01/30/21 Manny Mireles MD [address] [place] [address] 3rd [place] [address] Cardiology 05/28/24
--- OUTSIDE RECORDS SUMMARY | 2025-03-16 13:24 | XMS_ITS | Encounter Summary ---
Author Organization [employer] Address 75 [facility] 7t [place] [address] Care Team Providers Care Homemaking Rehabilitation Consultant Name Role Phone Dolores Serrano MD Primary Care Provider +1- [phone] Manny Mireles MD Unavailable Reason for Visit * Reason Onset Date Comments Referral 08/18/2024 Encounter Details Date Type Department Care Team (Late st Contact Info) Description 08/18/2024 Telephone [facility] MEDICINE [address] [place] [address] Dolores Serrano MD [address] [place], [place] [phone] Referral Social History Tobacco Use Types Packs/Day [...] EDT Tc from pt requesting referral for Medical Assistant Instructor. (Reason: Pt states it's for the same reason, states she's supposed to visit it annually) documented in this encounter Plan of Treatment Upcoming Encounters Date Type Department Care Team (Late st Contact Info) Description 03/18/2025 11:30 AM EDT Office Visit [facility] MED & PEDS [address] [place] [address] Dolores Serrano MD 505 [place] [address] 03/23/2025 9:00 AM EST Office Visit [facility] ADULT DENTAL [address] [place] [address] Juan Aguero 505 [place] [address] documented as of this encounter Visit Diagnoses Not on filedocumented in this encounter Additional Health Concerns Assessment Noted Time PHQ-9 Depression Total Score: 11 025 2:57 PM EDT documented as of this encounter Care Teams Homemaking Rehabilitation Consultant Relationship Specialty Start Date End Date Beauzile, Thevenin, MD [address] [place] [address] PCP - General Internal Medicine 01/30/21 Manny Mireles MD [address] [place] [address] 3rd [place] [address] Cardiology 05/28/24 documented as of this encounter
--- OUTSIDE RECORDS SUMMARY | 2025-03-16 13:24 | XMS_ITS | Encounter Summary ---
Author Organization [employer] Address [address] [place] [address] 7 [place] [address] Care Team Providers Care Formstone Fitter Name Role Phone Dolores Serrano MD Primary Care Provider +1- [phone] Manny Mireles MD Unavailable Reason for Visit * Reason Onset Date Comments Lab Orders 12/08/2024 Encounter Details Date Type Department Care Team ([facility] Contact Info) Description 12/08/2024 Telephone [facility] CHC MED & PEDS [address] [place], [place] [phone] Dolores Serrano MD [address] [place] [address] Lab Orders Social History Tobacco Use Types [...] a test through blood. Contact pt at [phone] (French speaking) Pt wants to know how many weeks she is at. documented in this encounter Plan of Treatment Upcoming Encounters Date Type Department Care Team (Late st Contact Info) Description 03/18/2025 11:30 AM EDT Office Visit [facility] MED & PEDS [address] [place] [address] Dolores Serrano MD [address] [place] [address] 03/23/2025 9:00 AM EST Office Visit [facility] ADULT DENTAL [address] [place] [address] Juan Aguero 505 [place] [address] documented as of this encounter Visit Diagnoses Not on filedocumented in this encounter Additional Health Concerns Assessment Noted Time PHQ-9 Depression Total Score: 11 025 2:57 PM EDT documented as of this encounter Care Teams Formstone Fitter Relationship Specialty Start Date End Date Dolores Serrano MD [address] [place] [address] PCP - General Internal Medicine 01/30/21 Manny Mireles MD [address] [place] [address] 3rd [place] [address] Cardiology 05/28/24 documented as of this encounter
== END 2025-03-16 11:12 | disposition home or self-care (01) ==
LOC: HO.HCS 10:38
PROVIDERS: PCP Internal Medicine; Visit Provider Nurse Practitioner Family
DX: R00.2 Palpitations (principal); Z98.890 Other specified postprocedural states
CPT/HCPCS: 93010; 99213

== ENCOUNTER → 2025-03-16 10:38 | Outpatient (BNVA) | payer MEDICAID, SELFPAY | PROVIDERS: PCP Internal Medicine; Visit Provider Nurse Practitioner Family | DX: R00.2 Palpitations (principal); Z86.79 Personal history of other diseases of the circulatory system; Z98.890 Other specified postprocedural states | CPT/HCPCS: 93005; 99212 ==